=== PATIENT | male | born 1960 | race Caucasian/White ===

== ENCOUNTER 2019-10-31 09:26 | Outpatient (CLI) | payer MEDICAID, SELFPAY ==
--- NOTE | 2019-10-31 09:43 | ECG_ITS ---
NAME OF STUDY: LEXISCAN SESTAMIBI STRESS TEST INDICATION: Chest Pain, PROCEDURE: At the baseline, the EKG revealed normal sinus rhythm with a poor R wave progression. The baseline blood pressure was 140/106 mm Hg with a heart rate of 61 beats/min. Lexiscan was infused over a period of 20 seconds. A total of 0.4 milligrams of Lexiscan was infused. The stress phase was continued for a total of 5 minutes. Heart rate at the end of the stress phase was 78 with a blood pressure 99/78. The EKG at the peak infusion revealed no significant changes. Sestamibi was injected 20 seconds after the Lexiscan infusion. Blood pressure at the end of the recovery phase was 162/52 with a heart rate of 79 per minute. CONCLUSION: 1. No significant EKG changes with the LexiScan infusion 2. No LexiScan induced chest pain or cardiac arrhythmia 3. Normal blood pressure and heart rate response 4. Sestamibi/sestamibi perfusion scan pending; see separate report. Electronically Signed On 10-31-2019 19:07:32 ETHNOLOGY TEACHER by Juanita Marinelli M.D. [id number]
--- NOTE | 2019-10-31 09:44 | NMCV_ITS ---
NM john perf SPECT r/s* [id number] Martin Estes Age: 59 Gender: M : 1960 Exam Date: 10/31/2019 09:44 Ordering Phys: Juanita Marinelli MD ([email or web address]) Technologist: GRECIA Ayon Exam Location: [facility] Indications: Chest pain STRESS TEST Please see separate stress test report in [facility] for full findings IMAGE PROTOCOL Rest/Stress 1 Lexiscan Day Radiopharmaceutical Dose (mCi) Administration Site Administered by Rest: Tc-99m 10.6 IV GRECIA Ayon Sestamibi Stress:Tc-99m 31.6 IV GRECIA Ayon Sestamibi Rest: 31-Oct-2019 60 Discovery 630 Stress: 31-Oct-2019 45 Discovery 630 0.4mg Lexiscan. Images obtained in supine and prone position. SPECT RESULTS Technical Quality: Good Raw Data Analysis: Adequate Image Corrections: Had to correct for breathing motion on images Summed Stress Score: 0 Summed Rest Score: 2 Summed Difference Score: 0 PERFUSION FINDINGS Small area of slightly decreases uptake was noted in the inferolateral and apical lateral regions. No severe reversibility was noted in these regions. FUNCTIONAL RESULTS (calculated via Gated SPECT) Stress Image LV EF (%): 32 Stress EDV (mL):100 TID: 1.07 Stress ESV (mL):68 FUNCTIONAL FINDINGS: Normal wall motion is revealed diffuse hypokinesia of the left ventricle, more so of the apex IMPRESSIONS 1. Myocardial perfusion imaging revealing small area of persistent decreases uptake in the inferolateral and apical region, suggestive of mild scarring versus attenuation artifact 2. Diminished LV ejection fraction 32%. 3. LV wall motion analysis revealed diffuse hypokinesia left ventricle. 4. Dilated LV cavity with an end-systolic volume of 68 mL-mild dilatation No significant coronary ischemia, based on the above findings Dr Juanita Marinelli MD [facility] (Electronically Signed) Final Date: 31 October 2019 17:51 S
--- NOTE | 2019-10-31 10:21 | USCV_ITS ---
Martin Estes Age: 59 Gender: M : 1960 Exam Date: 10/31/2019 10:31 Ordering Phys: Juanita Marinelli MD ([email or web address]) Technologist: Ami Coburn [place] [facility] [place]: HYPOTENSION BP: 119 / 65 HR: 77 Rhythm: Sinus Technical Quality: Adequate MEASUREMENTS (Male / Female) Normal Values 2D ECHO LV Diastolic Diameter PLAX 3.0 cm 4.2 - 5.9 / 3.9 - 5.3 cm LV Systolic Diameter PLAX 1.6 cm LV Chamber Size 3.7 cm IVS Diastolic Thickness 1.5 cm 0.6 - 1.0 / 0.6 - 0.9 cm IVS Systolic Thickness 2.1 cm LVPW Diastolic Thickness 2.4 cm 0.6 - 1.0 / 0.6 - 0.9 cm LVPW Systolic Thickness 2.4 cm RV Chamber Size 2.6 cm LVOT Diameter 2.0 cm LV Ejection Fraction 2D Teich 78.7 % LV Ejection Fraction MOD 2C 51.1 % LV Ejection Fraction 2C AL 53.9 % LA Diameter 4.1 cm LA Width 3.0 cm LA Height 4.1 cm RA Width 3.9 cm RA Height 4.4 cm Aorta at Sinotubular Diameter 3.3 cm M-MODE LV Diastolic Diameter MM 6.4 cm 4.2 - 5.9 / 3.9 - 5.3 cm LV Systolic Diameter MM 4.7 cm LV Ejection Fraction MM Teich 50.3 % IVS Diastolic Thickness MM 1.0 cm 0.6 - 1.0 / 0.6 - 0.9 cm IVS Systolic Thickness MM 1.4 cm LVPW Diastolic Thickness MM 1.1 cm 0.6 - 1.0 / 0.6 - 0.9 cm LVPW Systolic Thickness MM 1.9 cm Aortic Annulus Diameter 3.1 cm LA Ao Ratio MM 1.3 MV E Point Septal Separation 0.8 cm DOPPLER AV Peak Velocity 94.0 cm/s LVOT Peak Velocity 83.0 cm/s AV Area Cont Eq vti 2.9 cm squared AV Area Cont Eq pk 2.9 cm squared MV Area PHT 2.2 cm squared Mitral E to A Ratio 0.8 MV E' Velocity 15.0 cm/s Mitral E to MV E' Ratio 4.3 Mitral E to LV E' Lateral Ratio 3.4 Mitral E to LV E' Septal Ratio 5.8 TR Peak Velocity 170.0 cm/s TR Peak Gradient 11.5 mmHg TV Peak E Velocity 64.0 cm/s Right Atrial Pressure 3.0 mmHg Pulmonary Artery Systolic Pressu 14.6 mmHg PV Peak Velocity 81.0 cm/s RV Acceleration Time 0.2 s RV Ejection Time 0.3 s RV AcT/ET 0.4 FINDINGS Left Ventricle Normal left ventricular size and systolic function, EF 55 %. No gross wall motion normalities. Some features of left ventricular diastolic dysfunction of grade 1 Right Ventricle The right ventricle is normal in size and function. Right Atrium The right atrium is normal in size. Left Atrium The left atrium is normal in size. Mitral Valve Trace mitral valve regurgitation. Aortic Valve Trace aortic valve regurgitation. Thickened aortic valve. Tricuspid Valve No gross abnormalities noted Pulmonic Valve No gross abnormalities noted Pericardium Normal pericardium without effusion. Aorta Normal ascending aorta dimension. CONCLUSIONS Normal left ventricular size and systolic function, EF 55 %. No gross wall motion normalities. Type I diastolic dysfunction. Trace aortic valve regurgitation. Thickened aortic valve. Trace mitral valve regurgitation. There is no pericardial effusion. There are no intracardiac masses. No previous study is available for comparison. Dr Juanita Marinelli MD [facility] (Electronically Signed) Final Date: 31 October 2019 18:12 S
[2019-10-31 10:50] VITALS: BMI 29.0
[2019-10-31] MEDS: regadenoson 0.4 Mg/5 ml Syringe IVP (11:47)
[2019-10-31 12:04] VITALS: BP 160/52; PULSE 85
== END 2019-10-31 09:27 | disposition home or self-care (01) ==
LOC: RAD 09:28
PROVIDERS: Family Provider Family Medicine; PCP Family Medicine; Visit Provider Internal Medicine Cardiovascular Disease
DX: I08.0 Rheumatic disorders of both mitral and aortic valves (principal); I95.9 Hypotension, unspecified; R07.89 Other chest pain
CPT/HCPCS: 78452; 93017; 93306; A9500; J2785

== ENCOUNTER → 2019-12-12 07:49 | Outpatient (BNVA) | payer MEDICAID, SELFPAY | PROVIDERS: Family Provider Family Medicine; PCP Family Medicine; Visit Provider Specialist | DX: G40.409 Other generalized epilepsy and epileptic syndromes, not intractable, without status epilepticus (principal); Z96.89 Presence of other specified functional implants | CPT/HCPCS: 95970; 99213 ==

== ENCOUNTER 2019-12-13 14:05 | Outpatient (CLI) | payer MEDICAID, SELFPAY ==
--- NOTE | 2019-12-13 14:09 | XR_ITS ---
WS: [id number] Chest 2 views, 12/13/2019 Clinical Data: VNS battery chage Comparison: Portable chest, 02/01/2019. Findings: No nodules, masses or effusions are seen. The heart is normal. The pulmonary vascularity is not increased. No pneumonia or pneumothorax is seen. The vagal nerve stimulator is overlying the lef t lateral chest. XR/XR chest 2V* [id number] Impression: Negative chest. .
== END 2019-12-13 14:06 | disposition home or self-care (01) ==
LOC: RAD 14:08
PROVIDERS: Family Provider Family Medicine; PCP Family Medicine; Visit Provider Specialist
DX: Z96.89 Presence of other specified functional implants (principal)
CPT/HCPCS: 71046

== ENCOUNTER 2019-12-20 12:45 | Outpatient (CLI) | payer MEDICAID, SELFPAY ==
--- NOTE | 2019-12-20 13:00 | XR_ITS ---
WS: [id number] Cervical spine, 3 views, 12/20/2019 Clinical Data: VNS components Comparison: Soft tissue views of the neck, 12/26/2014. Findings: The vagal nerve stimulator has not changed in position. The generator is overlying the left upper chest. The distal portion of the generator is on the left side of the neck adjacent to the C6 and C7 vertebral bodies. Is minimal disc space narrowing at C5-C6 with an anterior inferior C5 spur. The cervical spine and the lung apices are otherwise unremarkable. XR/XR cervical spine 3V* [id number] Impression: 1. Satisfactory position of vagal nerve stimulator. 2. Minimal degenerative disc disease at C5-C6.
== END 2019-12-20 12:46 | disposition home or self-care (01) ==
LOC: RADWPI 12:47
PROVIDERS: Family Provider Family Medicine; PCP Family Medicine; Visit Provider Licensed Practical Nurse
DX: Z96.82 Presence of neurostimulator (principal); M47.892 Other spondylosis, cervical region
CPT/HCPCS: 72040

== ENCOUNTER → 2020-02-06 15:34 | Outpatient (BNVA) | payer MEDICAID, SELFPAY | PROVIDERS: Family Provider Family Medicine; PCP Family Medicine; Visit Provider Family Medicine | DX: E78.5 Hyperlipidemia, unspecified (principal); Z12.5 Encounter for screening for malignant neoplasm of prostate; K21.9 Gastro-esophageal reflux disease without esophagitis | CPT/HCPCS: 80053; 80061; 85025; G0103 ==

== ENCOUNTER 2020-02-07 10:37 | Day surgery (SDC) | payer MEDICAID, SELFPAY ==
[2020-02-06 16:59] VITALS: BMI 28.2
[2020-02-07 10:50] VITALS: BP 111/82; PULSE 72; RESP 18; TEMP 36.6; O2SAT 95
--- NOTE | 2020-02-07 11:10 | P.ANESASSM_ITS ---
Pre-Anesthetic Assessment Pre-Anesthetic Assessment: Height/Weight: Height 1.75 m Weight 86.636 kg Temp Pulse Resp BP Pulse Ox 97.9 F 72 18 111/82 95 02/07/20 10:50 02/07/20 10:50 02/07/20 10:50 02/07/20 10:50 02/07/20 10:50 Preop Diagnosis: Vagal nerve stimulator end of service Proposed Procedure: Operation Date: 02/07/20 11:55 Proposed Procedures p Vagal Nerve Revision 97369 Z45.42(Not Applicable) - Pal Faria MD Was Beta Gamaliel taken within 24 hours: N/A Last intake: Intake Last Liquid Date 02/07/20 Last Liquid Time 06:45 Last Solid Date 02/06/20 Last Solid Time 17:30 Social: Social History: No alcohol and No tobacco Exam: Pre-Anes Outpt Exam: alert, oriented x 3, clear to auscultation bilaterally and regular rate & rhythm Airway: Submandibular: WNL Cervical ROM: WNL MP: 2 Dentition: False History/ROS: No significant history except as noted Pulmonary: Pulmonary: None reported CV/HEM: CV/HEM: Angina (Stable) : : Chronic renal Insufficiency GI: GI: GERD Metabolic: Metabolic: Hyperlipidemia Neuropsych: Neuropsych: Seizure Anesthetic Plan: ASA status: 3 Anesthesia: Anesthesia Evaluation, General a nd MAC Risk of > 500 ml blood loss (7ml/kg in children): No PFSH Anesthesia PFSH: Social History Smoking and tobacco status: never smoked Alcohol intake: never Household members: friend(s) Marital status: Single Current occupational status: unemployed and disabled History of recent travel: No Data Anesthesia Cardiac Studies: No Data to Display
--- NOTE | 2020-02-07 11:22 | P.HPUD_ITS ---
Surgery/Procedure H&P Update DATE OF PROCEDURE: February 07, 2020 DATE H&P PERFORMED: 02/06/20 H&P UPDATE INFORMATION: I have reviewed H&P completed within last 30 days and H&P is in [facility] [place] EMR on date indicated PREOP DIAGNOSIS: Vagal nerve stimulator end of service PRIMARY INDICATION FOR PROCEDURE: Medically refractory seizures PLANNED PROCEDURE: Operation Date: 02/07/20 11:55 Proposed Procedures Replacement of subcutaneous Vagal Nerve stimulation pulse generator 91667 Z45.42(Not Applicable) - Pal Faria MD
[2020-02-07] MEDS: vancomycin 1,000 MG in sodium chloride 0.9% 250 ML 250 MG IV (11:31)
[2020-02-07] MEDS: sodium chloride 0.9% 1,000 ML 30 ML IV (11:31)
--- NOTE | 2020-02-07 11:43 | PM.OP2 ---
 Brief Operative Note: Date of procedure: 02/07/20 Pre-op diagnosis: Vagal nerve stimulator end of service Post-op diagnosis: same Procedure Done: Replacement of subcutaneous programmable pulse generator Surgeon: Pal Faria Estimated blood loss (mL): 5 Complications: None Post-op Plan: Home per Ambulatory Surgery protocol. Condition: stable Disposition: same day Coding Level of Care Code Acute Food Service Hotel Runner for Garrett Liang
[2020-02-07 12:58] VITALS: BP 111/62; PULSE 75; RESP 18; TEMP 36.2; O2SAT 97
[2020-02-07 13:13] VITALS: BP 136/70; PULSE 80; RESP 18; TEMP 36.6; O2SAT 96
--- NOTE | 2020-02-07 14:40 | PM.OP ---
Operative Report Date of procedure: February 07, 2020 Pre-op Diagnosis: Vagal nerve stimulator end of service Post-op diagnosis: same Procedure Done: Replacement of subcutaneous programmable pulse generator, with connection to vagal nerve stimulation electrode array. Implants: VNS Therapy Sentiva Model #1000 pulse generator. Specimens removed/disposition: [employer]O [employer] HC Model #105 pulse generator. Pathology: Explanted pulse generator for gross exam only. Surgeon: Pal Faria Anesthesia: MAC Estimated blood loss (mL): 5 IV fluids (mL): 200 Complications: None Condition: stable Disposition: other (Same Day Surgery) Brief History: The patient is a 59-year-old male with medically refractory seizures, who underwent vagal nerve stimulator implantation in 2005. He noted improvement in seizure control with addition of VNS therapy. He underwent a pulse generator replacement in 2014. His managing neurologist recently requested replacement of the current device, which was nearing battery end of service. After review of the diagnostic and treatment options with the risks/potential benefits/rationale for each, the patient opted for replacement of the subcutaneous pulse generator and continuation of VNS therapy. Procedure: After routine preoperative evaluation and informed consent were obtained, the patient was taken to the Operating Room and positioned supine on the operating table. He was monitored and maintained under intravenous sedation by Anesthesia personnel. The left anterior chest was prepared with Betadine scrub and DuraPrep application. Sterile towels/drapes were applied, and Ioban surgical barrier was placed. The prior left infraclavicular surgical scar was infiltrated with 1% Xylocaine with Epinephrine. The chest incision was made with a sharp knife and carried down into the subcutaneous tissues. Care was taken to avoid injury to the underlying implants. The anchor suture was released, and the pulse generator was delivered from the subcutaneous space. The setscrew was released, and the pin was delivered from the port on the pulse generator. The explanted device was sent to pathology for gross evaluation. The device for implant was brought to the surgical field, and the connector pin on the lead tail was advanced into the port on the pulse generator. The set screw was secured. Device interrogation was performed. The lead test was successful, showing no faults and acceptable lead impedance. The patient showed no bradycardia during lead test/device interrogation, and heart rate sensing by the newly implanted device was verified. The subcutaneous pocket was copiously irrigated with sterile saline. The pulse generator was placed within the subcutaneous pocket and anchored with a single 2-0 Silk suture. Excess lead was coiled adjacent to the device and was verified to be without kink or strain. The incision site was copiously irrigated with antibiotic irrigation prior to closure. The deep dermis was closed with 2-0 Vicryl Plus in a simple interrupted fashion. Final skin closures were performed with running subcuticular 3-0 Vicryl Plus. Steri-Strips were applied, and a sterile dressing was placed. The implanted device was programmed to settings obtained from the explanted device. The lead test demonstrated acceptable impedance. The patient was transferred onto the Recovery Room cart in the supine position. He was transported to the ambulatory surgery area without incident. He tolerated the procedure well. All sponge, needle and instrument counts were correct at the completion of the procedure.
== END 2020-02-07 13:30 | disposition home or self-care (01) ==
PROVIDERS: Family Provider Family Medicine; PCP Family Medicine; Visit Provider Specialist
PROC: (CPT 64569; principal; 2020-02-07 11:55)
DX: Z45.42 Encounter for adjustment and management of neurostimulator (principal); K21.9 Gastro-esophageal reflux disease without esophagitis; E78.5 Hyperlipidemia, unspecified; Z82.49 Family history of ischemic heart disease and other diseases of the circulatory system; N18.9 Chronic kidney disease, unspecified
CPT/HCPCS: 64569; 12345; 88300; 96365; C1767; J0690; J2001; J2704; J3010; J3370; J3490; J7030; J7050

== ENCOUNTER 2020-03-04 09:16 | Outpatient (CLI) | payer MEDICAID, SELFPAY ==
--- NOTE | 2020-03-04 09:15 | XR_ITS ---
WS: [id number] XR KUB [id number] REASON FOR EXAM: n20.1 FINDINGS: This study shows multiple calcified densities in the left kidney. There is marked fecal stasis also seen throughout the colon. The urinary bladder is distended. XR/XR KUB [id number] IMPRESSION: Multiple renal calculus on the left Fecal stasis Mildly distended urinary bladder.
== END 2020-03-04 09:17 | disposition home or self-care (01) ==
PROVIDERS: Family Provider Family Medicine; PCP Family Medicine; Visit Provider Urology
DX: N20.1 Calculus of ureter (principal); N20.0 Calculus of kidney; K59.00 Constipation, unspecified
CPT/HCPCS: 74018; 81001

== ENCOUNTER 2020-03-24 07:05 | Outpatient (CLI) | payer MEDICAID, SELFPAY ==
--- NOTE | 2020-03-24 07:15 | XR_ITS ---
WS: [id number] ABDOMEN: SUPINE FILM HISTORY: RENAL STONE COMPARISON: 03/04/2020 Moderate fecal retention. Degenerative changes at L5-S1. Right kidney: No renal or ureteral stone identified. Left kidney: Numerous stones project over the LEFT kidney with the largest measuring 7.1 mm. Stone bu rden not significantly changed. XR/XR KUB 26874 IMPRESSION: LEFT nephrolithiasis with the largest measuring 7.1 mm.
== END 2020-03-24 07:06 | disposition home or self-care (01) ==
LOC: RAD 07:09
PROVIDERS: PCP Family Medicine; Visit Provider Urology
DX: N20.0 Calculus of kidney (principal)
CPT/HCPCS: 74018; 81001

== ENCOUNTER → 2020-05-02 15:52 | Outpatient (BNVA) | payer MEDICAID, SELFPAY | PROVIDERS: PCP Family Medicine; Visit Provider Nurse Practitioner Family | DX: R30.0 Dysuria (principal) | CPT/HCPCS: 81000; 85025 ==

== ENCOUNTER → 2020-05-21 12:30 | Outpatient (BNVA) | payer MEDICAID, SELFPAY | PROVIDERS: PCP Family Medicine; Visit Provider Family Medicine | DX: R30.0 Dysuria (principal); F41.9 Anxiety disorder, unspecified; Z68.27 Body mass index [BMI] 27.0-27.9, adult; Z71.89 Other specified counseling | CPT/HCPCS: 81000 ==

== ENCOUNTER → 2020-06-10 07:45 | Outpatient (BNVA) | payer MEDICAID, SELFPAY | PROVIDERS: PCP Family Medicine; Visit Provider Specialist | DX: G40.909 Epilepsy, unspecified, not intractable, without status epilepticus (principal); R26.0 Ataxic gait; Z96.89 Presence of other specified functional implants | CPT/HCPCS: 95970; 99213 ==

== ENCOUNTER 2020-06-16 12:46 | Outpatient (CLI) | payer MEDICAID, SELFPAY ==
--- NOTE | 2020-06-16 13:00 | CT_ITS ---
WS: [id number] CT HEAD TECHNIQUE: Noncontrast CT of the head obtained from the skullbase to the vertex. CLINICAL INFORMATION: SEE DX COMPARISON: None. DLP: 925.[address] scans at [facility] use at least one of these dose optimization techniques: automat ed exposure control; mA and/or kV adjustment per patient size (includes targeted exams where dose is matched to clinical indication); or iterative reconstruction. FINDINGS: No evidence of intracranial hemorrhage or mass effect. Ventricular system and basal cisterns are velasco nt. Mild small vessel changes with moderate parenchymal volume loss. No extra-axial fluid collections . No evidence of mass or mass effect. Normal carranza-white differentiation. Mastoid air cells well aerated. Mild mucosal thickening in the ethmoid air cells. CT/CT head wo con* [id number] IMPRESSION: 1. No evidence of intracranial hemorrhage or mass effect. 2. Mild small vessel changes. Moderate parenchymal volume loss. 3. No acute intracranial findings.
== END 2020-06-16 12:47 | disposition home or self-care (01) ==
PROVIDERS: PCP Family Medicine; Visit Provider Specialist
DX: G40.909 Epilepsy, unspecified, not intractable, without status epilepticus (principal)
CPT/HCPCS: 70450

== ENCOUNTER → 2020-09-03 11:18 | Outpatient (BNVA) | payer MEDICAID, SELFPAY | PROVIDERS: PCP Family Medicine; Visit Provider Family Medicine | DX: E78.5 Hyperlipidemia, unspecified (principal) | CPT/HCPCS: 80053; 80061; 85025 ==

== ENCOUNTER 2020-09-23 08:40 | Outpatient (CLI) | payer MEDICAID, SELFPAY ==
--- NOTE | 2020-09-23 08:45 | XRR_ITS ---
PROCEDURE INFORMATION: Exam: XR Abdomen, 1 View Exam date and time: 09/23/2020 8:56 AM Age: 60 years old Clinical indication: Condition or disease; Kidney or ureter condition; Calculus (stone) in kidney; Additional info: Renal stone TECHNIQUE: Imaging protocol: XR of the abdomen. Views: Frontal supine view of the abdomen. 1 View. COMPARISON: CR XR KUB [id number] 03/24/2020 7:17 AM FINDINGS: Gastrointestinal tract: bowel gas pattern is nonspecific. Air filled large bowel including distal rectal gas. Large amount of stool throughout the large bowel. Organs: Calcifications left kidney largest of approximately 10 mm and 12 mm. Bones/joints: Unremarkable. XR/XR KUB [id number] IMPRESSION: 1. Bowel gas pattern is nonspecific. Air filled large bowel including distal rectal gas. 2. Large amount of stool throughout the large bowel. 3. Calcifications left kidney largest of approximately 10 mm and 12 mm. .
== END 2020-09-23 08:41 | disposition home or self-care (01) ==
PROVIDERS: PCP Family Medicine; Visit Provider Urology
DX: N20.0 Calculus of kidney (principal); R30.0 Dysuria
CPT/HCPCS: 74018; 81003

== ENCOUNTER 2020-11-05 12:04 | Outpatient (CLI) | payer MEDICAID, SELFPAY ==
--- NOTE | 2020-11-05 12:15 | XR_ITS ---
WS: [id number] KUB, AP view, 11/05/2020 Clinical Data: KIDNEY STONE Comparison: KUB, 09/23/2020 Findings: No abnormal intraabdominal masses are seen. There is no dilatated small bowel or evidence of obstruct ion. There are numerous calcifications overlying the left kidney. The largest calcification measures 1.2 c m. Bowel gas and fecal material obscure detail over both kidneys. XR/XR KUB [id number] Impression: Numerous left renal calcifications unchanged.
== END 2020-11-05 12:05 | disposition home or self-care (01) ==
LOC: RAD 12:05
PROVIDERS: PCP Family Medicine; Visit Provider Urology
DX: N20.0 Calculus of kidney (principal)
CPT/HCPCS: 74018; 87635

== ENCOUNTER 2020-11-10 11:43 | Day surgery (SDC) | payer MEDICAID, SELFPAY ==
[2020-11-07 16:20] VITALS: BMI 28.0
[2020-11-10] VITALS (7 sets, daily range): BP systolic 100–112; BP diastolic 62–75; PULSE 53–81; RESP 13–20; TEMP 36.1–36.4; O2SAT 95–100
--- NOTE | 2020-11-10 11:47 | XRR_ITS ---
PROCEDURE INFORMATION: Exam: XR Abdomen, 1 View Exam date and time: 11/10/2020 12:06 PM Age: 60 years old Clinical indication: Screening exam; Other: Preop eswl TECHNIQUE: Imaging protocol: XR of the abdomen. Views: Frontal supine view of the abdomen. 1 View. COMPARISON: CR XR KUB [id number] 11/05/2020 12:35 PM FINDINGS: Gastrointestinal tract: Large amount of stool in the colon. Organs: There are multiple left renal calculi, at least 6. These are partially obscured by enteric contents in the colon. The largest calculus measures approximately 14 mm in size not accounting for magnification. Bones/joints: Multilevel degenerative changes in lumbar spine. XR/XR KUB [id number] IMPRESSION: Left nephrolithiasis.
[2020-11-10] MEDS: sodium chloride 0.9% 1,000 ML 30 ML IV (12:47)
--- NOTE | 2020-11-10 13:19 | ANES.PREANE2 ---
Pre-Anesthetic Assessment Pre-Anesthetic Assessment: Height/Weight: Height 1.75 m Weight 86.183 kg Temp Pulse Resp BP Pulse Ox 97.6 F 64 18 100/64 96 11/10/20 12:36 11/10/20 12:36 11/10/20 12:36 11/10/20 12:36 11/10/20 12:36 Preop Diagnosis: Multiple left renal calculi Proposed Procedure: Operation Date: 11/10/20 13:10 Proposed Procedures p Cystoscopy 04511 09444 N20.0(Left) - MD chioma Snow Ureteral Stent Placement(Left) - Antione Torres MD s ESWL(Not Applicable) - Antione Torres MD Was Beta Gamaliel taken within 24 hours: N/A Last intake: Intake Last Liquid Date 11/09/20 Last Liquid Time 07:00 Last Solid Date 11/09/20 Last Solid Time 07:00 Social: Social History: No alcohol and No tobacco Exam: Pre-Anes Outpt Exam: alert, oriented x 3, clear to auscultation bilaterally and regular rate & rhythm Airway: Submandibular: WNL Cervical ROM: WNL MP: 2 Dentition: False : : Chronic renal Insufficiency GI: GI: GERD Neuropsych: Neuropsych: Anxiety, Bipolar and Seizure (VNS) Anesthetic Plan: ASA status: 3 Anesthesia: General Risk of > 500 ml blood loss (7ml/kg in children): No Meds/Allergies Current Medications: Current Medications Generic Name Dose Route Start Last Admin Trade Name Freq PRN Reason Stop Dose Admin Sodium Chloride 1,000 mls @ 30 ml s/hr 11/10/20 12:00 11/10/20 12:47 Sodium Chloride 0.9% IV 11/11/20 11:59 30 mls/hr .Q24H SUNNY Administration PFSH Anesthesia PFSH: Medical History Anxiety Bipolar 1 disorder Calcium renal calculus Chronic kidney disease Depression Dyslipidemia Epilepsy GERD (gastroesophageal reflux disease) Hematochezia Hypernatremia 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 Fadi Faria; Replacement of subcutaneous programmable pulse generator, with connection to vagal nerve stimulator electrode array. 05/26/2006 Dr. Fadi Faria. Implantation of vagal nerve stimulating electrode. Implantation of subcutaneous pulse generator for connection to cranial nerve stimulating electrode array. Family History Other CAD (coronary artery disease) Social History Smoking and tobacco status: never smoked Alcohol intake: never Household members: friend(s) Marital status: Single Current occupational status: unemployed and disabled History of recent travel: No Data Anesthesia Cardiac Studies: Cardiac Event Monitor 09/30/20
--- NOTE | 2020-11-10 13:35 | P.OP_ITS ---
Operative Report Date of procedure: November 10, 2020 Pre-op Diagnosis: Multiple left renal calculi Post-op diagnosis: same Procedure Done: 1. Cystoscopy with left ureteral stent placement 2. Extracorporeal shockwave lithotripsy to left renal calculi (multiple) Implants: Left ureteral stent. 7 Danish by 28 cm double-pigtail without string Pathology: none sent Surgeon: Brian Orchid Transplanter: Lithotripsy Fashion Photographer: Merari Anesthesia: General Estimated blood loss: None Urine output: Not measured Complications: None Condition: stable Disposition: PACU Brief History: Martin is a very pleasant cognitively impaired 60-year-old white male with history of recurrent urolithiasis who has had increasing stone burden in his left kidney. He has multiple stones throughout the kidney. Has required previous intervention for symptomatic stones. Ultimately it was elected to proceed to try to make him stone free. Plan was to place a stent, treat as many of the stones as possible, follow-up in several weeks and possibly schedule repeat treatment if necessary. Procedure: After routine preoperative evaluation examination and obtaining of informed consent he was taken to the operating suite on 11/10/2020 where general anesthesia was administered without difficulty after appropriate timeout was performed, SCDs confirmed to be functioning, preoperative antibiotics administered, beta- denis protocol confirmed. Prepped and draped in usual sterile fashion in dorsolithotomy position paying careful attention to avoiding pressure points. 21 Danish cystoscope with 30 degree lens was introduced into the urethra meatus and advanced into the bladder under videoscopy. Bladder was systematically examined with no gross abnormality identified. Flexible tip guidewire was then easily advanced up the left ureter into the kidney and a 7 Danish by 28 cm double-pigtail stent without string was advanced over the guidewire through the cystoscope into appropriate position as confirmed via fluoroscopy and cystoscopy. Bladder was drained. He was then positioned on the Dornier unit in supine position such that the stone was located at the focal point utilizing biplanar fluoroscopy. Shockwave therapy was initiated to the stones that could be most easily identified. Therapy was started at a intensity of 1 and advanced an intensity of 4 with a 3- minute pause after approximately 300 shocks. Rate was initiated at 70. That was maintained throughout. The large mid pole stone was treated first with good change. The focal point was then moved to the lower pole where a couple stones were treated. With the final 800 shocks the larger upper pole stone was also treated. All stones demonstrated some change. He tolerated procedure well without complications and was awakened in the operating room and returned recovery in stable condition. PLANS: 1. Discharge from outpatient surgery 2. Follow-up in 2 weeks with KUB.
--- NOTE | 2020-11-10 13:35 | W.PM.OPSUD ---
Surgery/Procedure H&P Update DATE OF PROCEDURE: November 10, 2020 DATE H&P PERFORMED: 11/05/20 H&P UPDATE INFORMATION: I have reviewed H&P completed within last 30 days, I have examined patient prior to procedure, No changes to prior documentation and [place] [facility] [place] date indicated PREOP DIAGNOSIS: Multiple left renal calculi PLANNED PROCEDURE: Operation Date: 11/10/20 13:10 Proposed Procedures p Cystoscopy 09983 15106 N20.0(Left) - Antione Torres MD s Ureteral Stent Placement(Left) - Antione Torres MD s ESWL(Not Applicable) - Antione Torres MD
[2020-11-10] MEDS: levofloxacin-dextrose 5 % 500 MG/100 ML PREMIX 100 MG IV (13:49)
--- NOTE | 2020-11-10 16:24 | ANE.PACU2 ---
Inpatient post-anesthesia follow up: Airway intact: Yes Vital signs: Temperature 97.0 F Pulse Rate 81 Respiratory Rate 18 Blood Pressure 112/62 Pulse Oximetry 98 Oxygen Delivery Me thod Room Air Oxygen Flow Rate 6 Fraction of Inspir ed Oxygen Hydration adequate: Yes Nausea and vomiting: No Pain level: 1 Mental status: Baseline
== END 2020-11-10 15:58 | disposition home or self-care (01) ==
PROVIDERS: PCP Family Medicine; Visit Provider Urology
PROC: 0TJB8ZZ Inspection of Bladder, Via Natural or Artificial Opening Endoscopic (ICD-10-PCS; CPT 52000; principal; 2020-11-10 13:10)
PROC: (CPT 50605; 2020-11-10 13:10)
PROC: (CPT 50590; 2020-11-10 13:10)
DX: N20.0 Calculus of kidney (principal); N40.1 Benign prostatic hyperplasia with lower urinary tract symptoms; N13.8 Other obstructive and reflux uropathy; F41.9 Anxiety disorder, unspecified; E78.5 Hyperlipidemia, unspecified; F31.9 Bipolar disorder, unspecified; N18.9 Chronic kidney disease, unspecified; Z82.49 Family history of ischemic heart disease and other diseases of the circulatory system
CPT/HCPCS: 50590; 52332; 12345; 74018; C2625; J1956; J2704; J3010; J3490; J7030

== ENCOUNTER 2020-11-26 08:10 | Outpatient (CLI) | payer MEDICAID, SELFPAY ==
--- NOTE | 2020-11-26 08:00 | XR_ITS ---
WS: [id number] Exam: XR KUB [id number] Date/Time of Exam: 11/26/2020 8:00 AM Reason For Exam: stones Comparison 11/10/2020. A left pigtail ureteral stent has been placed and appears to be in appropriate location. There are se veral calcifications superimposing the lower pole the left kidney that apparently represents the nellie ent's known renal calculi. There is also a 3 mm calcification seen along the course of the stent at t he upper left margin of the urinary bladder. This could be a urinary tract stone or other calcificati on in the pelvis. Large amount of stool noted throughout the colon. No bowel obstruction or free air. Organ margins are unremarkable as visualized. XR/XR KUB [id number] IMPRESSION: 1. Left-sided ureteral pigtail stent in place appearing to be in appropriate lo cation. 2. Numerous calcifications superimpose the lower pole the left kidney probably representing known renal calculi. 3. 3 mm calcification seen along the course of the left ureteral stent near the superior left margin of the urinary bladder. This could be a urinary tract sto ne or other pelvic calcification.
== END 2020-11-26 08:11 | disposition home or self-care (01) ==
LOC: RAD 08:12
PROVIDERS: PCP Family Medicine; Visit Provider Urology
DX: N20.0 Calculus of kidney (principal); Z96.0 Presence of urogenital implants
CPT/HCPCS: 74018; 81003

== ENCOUNTER → 2020-12-03 08:27 | Outpatient (BNVA) | payer MEDICAID, SELFPAY | PROVIDERS: PCP Family Medicine; Visit Provider Specialist | DX: G40.909 Epilepsy, unspecified, not intractable, without status epilepticus (principal); R26.0 Ataxic gait; F31.9 Bipolar disorder, unspecified; Z96.89 Presence of other specified functional implants | CPT/HCPCS: 95970; 99214 ==

== ENCOUNTER 2020-12-05 09:39 | Outpatient (CLI) | payer MEDICAID, SELFPAY ==
--- NOTE | 2020-12-05 09:45 | XR_ITS ---
WS: [id number] KUB, AP view, 12/05/2020 Clinical Data: RENAL STONE Comparison: KUB, 11/26/2020. Findings: No abnormal intraabdominal masses are seen. There are calcifications in the inferior pole left kidney which have not changed. A left ureteral stent is in good position. There is no dilatated small bowel or evidence of obstruction. The calcification at the left UVJ adjacent to the distal left ureteral catheter is not seen. There is a large amount of fecal material throughout the colon. XR/XR KUB [id number] Impression: 1. No change in left ureteral stent. 2. Calcifications overlying inferior pole of left kidney. 3. Possible distal left ureteral calculus no longer seen.
== END 2020-12-05 09:40 | disposition home or self-care (01) ==
LOC: RAD 09:42
PROVIDERS: PCP Family Medicine; Visit Provider Urology
DX: N20.0 Calculus of kidney (principal); Z96.0 Presence of urogenital implants
CPT/HCPCS: 74018; 87635

== ENCOUNTER 2020-12-08 14:54 | Day surgery (SDC) | payer MEDICAID, SELFPAY ==
[2020-12-05 18:08] VITALS: BMI 28.6
[2020-12-08] VITALS (7 sets, daily range): BP systolic 103–130; BP diastolic 77–88; PULSE 52–68; RESP 12–18; TEMP 36.3–36.8; O2SAT 94–100
--- NOTE | 2020-12-08 15:07 | XRR_ITS ---
PROCEDURE INFORMATION: Exam: XR Abdomen Exam date and time: 12/08/2020 3:07 PM Age: 60 years old Clinical indication: Screening examination. Preoperative for extracorporeal shock wave lithotripsy. TECHNIQUE: Imaging protocol: XR of the abdomen. Views: Frontal supine view of the abdomen. 1 View. COMPARISON: CR XR KUB [id number] 11/10/2020 11:54 AM FINDINGS: A left ureteral stent is in place. Stones are noted in the mid and lower pole of the left kidney. Nonobstructive bowel gas pattern. No gross free air. XR/XR KUB [id number] IMPRESSION: 1. A left ureteral stent is in place. 2. Stones are noted in the mid and lower pole of the left kidney.
[2020-12-08] MEDS: sodium chloride 0.9% 1,000 ML 30 ML IV (16:20)
--- NOTE | 2020-12-08 16:58 | ANES.PREANE2 ---
Pre-Anesthetic Assessment Pre-Anesthetic Assessment: Height/Weight: Height 1.7 m Weight 83.007 kg Temp Pulse Resp BP Pulse Ox 98.2 F 68 18 120/82 95 12/08/20 15:39 12/08/20 15:39 12/08/20 15:39 12/08/20 15:39 12/08/20 15:39 Preop Diagnosis: Residual left renal calculi Proposed Procedure: Operation Date: 12/08/20 16:30 Proposed Procedures p Cystoscopy 97815 39201 N20.0(Not Applicable) - Antione Torres MD s Ureteral Stent Removal(Not Applicable) - Antione Torres MD s ESWL(Not Applicable) - Antione Torres MD Was Beta Gamaliel taken within 24 hours: N/A Last intake: Intake Last Liquid Date 12/08/20 Last Liquid Time 08:00 Last Solid Date 12/06/20 Last Solid Time 17:00 Social: Social History: No alcohol and No tobacco Exam: Pre-Anes Outpt Exam: alert, oriented x 3, clear to auscultation bilaterally and regular rate & rhythm Airway: Submandibular: WNL Cervical ROM: WNL MP: 2 Dentition: False CV/HEM: CV/HEM: Angina (Stable) and CAD : : Chronic renal Insufficiency GI: GI: GERD Neuropsych: Neuropsych: Anxiety, Bipolar and Seizure (VNS) Anesthetic Plan: ASA status: 3 Anesthesia: General Risk of > 500 ml blood loss (7ml/kg in children): No Meds/Allergies Current Medications: Current Medications Generic Name Dose Route Start Last Admin Trade Name Freq PRN Reason Stop Dose Admin Sodium Chloride 1,000 mls @ 30 ml s/hr 12/08/20 15:15 12/08/20 16:20 Sodium Chloride 0.9% IV 12/09/20 15:14 30 mls/hr .Q24H SUNNY Administration PFSH Anesthesia PFSH: Medical History Anxiety Bipolar 1 disorder Calcium renal calculus Chronic kidney disease Depression Dyslipidemia Epilepsy GERD (gastroesophageal reflux disease) Hematochezia Hypernatremia 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 Fadi Faria; Replacement of subcutaneous programmable pulse generator, with connection to vagal nerve stimulator electrode array. 05/26/2006 Dr. Fadi Faria. Implantation of vagal nerve stimulating electrode. Implantation of subcutaneous pulse generator for connection to cranial nerve stimulating electrode array. Family History Other CAD (coronary artery disease) Social History Smoking and tobacco status: never smoked Alcohol intake: never Household members: friend(s) Marital status: Single Current occupational status: unemployed and disabled History of recent travel: No Data Anesthesia Cardiac Studies: Cardiac Event Monitor 09/30/20
--- NOTE | 2020-12-08 17:49 | P.HPUD_ITS ---
Surgery/Procedure H&P Update DATE OF PROCEDURE: December 08, 2020 DATE H&P PERFORMED: 12/05/20 H&P UPDATE INFORMATION: I have reviewed H&P completed within last 30 days, I have examined patient prior to procedure, No changes to prior documentation and H&P is in [facility] EMR on date indicated PREOP DIAGNOSIS: Residual left renal calculi PLANNED PROCEDURE: Operation Date: 12/08/20 16:30 Proposed Procedures p Cystoscopy 37037 25771 N20.0(Not Applicable) - Antione Torres MD s Ureteral Stent Removal(Not Applicable) - Antione Torres MD s ESWL(Not Applicable) - Antione Torres MD
--- NOTE | 2020-12-08 17:50 | P.OP_ITS ---
Operative Report Date of procedure: December 08, 2020 Pre-op Diagnosis: Residual left renal calculi Post-op diagnosis: same Procedure Done: 1. Extracorporeal shockwave lithotripsy, residual left renal calculus fragment 2. Cystoscopy removal of left ureteral stent Specimens removed/disposition: None Pathology: none sent Surgeon: Brian English Professor: Merari Anesthesia: General Estimated blood loss: None Urine output: Not measured Complications: None Findings: 3 distinct areas of stone fragments were treated all with excellent results. 2000 shocks total. Condition: stable Disposition: PACU Brief History: Martin is a very pleasant mentally challenged 60-year-old white male with a history of recurrent stone disease who recently underwent ESWL for increasing size of left renal calculi. There was dramatic change in all the stones treated but there was a few stone fragments that were felt to be too large to spontaneously pass remaining. He is back now for completion ESWL. We also reviewed taking the stent out if the results look good at real-time fluoroscopy. Procedure: After routine preoperative evaluation examination and obtaining of informed consent he was taken to the operating suite on 12/08/2020 where general anesthesia was administered without difficulty after appropriate timeout was performed, SCDs confirmed to be functioning, preoperative antibiotics administered, beta- denis protocol confirmed. Positioned on the Dornier unit such that the lower pole cluster of stones was at the focal point. Shockwave was initiated at a rate of 70 and an intensity of 1 with advancement to an intensity of 4. A several minute pause was conducted after about 300 shocks. The cluster of stones in the lower pole showed early change. After the pause focus was shifted to the midpole stone and it is well showed significant change. Focus was then redirected to the lower pole until no stone fragments could be seen. There appeared to be a small fragment in the area of the initial stone in the upper pole and this fragment was also treated with about 500 shocks at the completion of the procedure. After 2000 shocks no more stone fragments could be seen and the procedure was completed. He tolerated procedure well without complications and was awakened in the operating room and returned to the care of room in stable condition PLANS: 1. Follow-up KUB in about 3 months
[2020-12-08] MEDS: levofloxacin-dextrose 5 % 500 MG/100 ML PREMIX 100 MG IV (17:55)
--- NOTE | 2020-12-09 06:48 | ANE.PACU2 ---
Inpatient post-anesthesia follow up: Airway intact: Yes Vital signs: Temperature 98 F Pulse Rate 61 Respiratory Rate 18 Blood Pressure 130/88 Pulse Oximetry 96 Oxygen Delivery Me thod Room Air Oxygen Flow Rate 8 Fraction of Inspir ed Oxygen Hydration adequate: Yes Nausea and vomiting: No Pain level: 2 Mental status: Baseline
== END 2020-12-08 19:30 | disposition home or self-care (01) ==
PROVIDERS: PCP Family Medicine; Visit Provider Urology
PROC: 0TJB8ZZ Inspection of Bladder, Via Natural or Artificial Opening Endoscopic (ICD-10-PCS; CPT 52000; principal; 2020-12-08 16:30)
PROC: (CPT 52310; 2020-12-08 16:30)
PROC: (CPT 50590; 2020-12-08 16:30)
DX: N20.0 Calculus of kidney (principal); K21.9 Gastro-esophageal reflux disease without esophagitis; F41.9 Anxiety disorder, unspecified; I25.10 Atherosclerotic heart disease of native coronary artery without angina pectoris; E78.5 Hyperlipidemia, unspecified
CPT/HCPCS: 50590; 52310; 74018; J1956; J2405; J2704; J3010; J7030

== ENCOUNTER → 2020-12-15 13:58 | Outpatient (BNVA) | payer MEDICAID, SELFPAY | PROVIDERS: PCP Family Medicine; Visit Provider Family Medicine | DX: F41.9 Anxiety disorder, unspecified (principal); E78.5 Hyperlipidemia, unspecified; F31.9 Bipolar disorder, unspecified; I95.89 Other hypotension; K21.9 Gastro-esophageal reflux disease without esophagitis; I10 Essential (primary) hypertension | CPT/HCPCS: 80053; 80061; 84443; 85025 ==

== ENCOUNTER 2021-03-10 08:15 | Outpatient (CLI) | payer MEDICAID, SELFPAY ==
--- NOTE | 2021-03-10 08:00 | XRR_ITS ---
PROCEDURE INFORMATION: Exam: XR Abdomen Exam date and time: 03/10/2021 8:23 AM Age: 60 years old Clinical indication: Other: Follow up kidney stones; Additional info: N20.0 - calculus of kidney TECHNIQUE: Imaging protocol: XR of the abdomen. Views: Frontal supine view of the abdomen. 1 View. COMPARISON: CR XR KUB [id number] 12/08/2020 3:16 PM FINDINGS: Tubes, catheters and devices: Interval removal of previously visualized left double-J catheter. Gastrointestinal tract: Colonic dilatation and prominent stool. Organs: Obscuration of the renal fossa by bowel gas and stool. CT may be of benefit for further evaluation of suspected urolithiasis. Bones/joints: Mild degenerative change. XR/XR KUB [id number] IMPRESSION: Obscuration of the renal fossa by bowel gas and stool. CT may be of benefit for further evaluation of suspected urolithiasis.
== END 2021-03-10 08:16 | disposition home or self-care (01) ==
LOC: RAD 08:16
PROVIDERS: PCP Family Medicine; Visit Provider Urology
DX: N20.0 Calculus of kidney (principal)
CPT/HCPCS: 74018; 81003

== ENCOUNTER → 2021-03-13 10:17 | Outpatient (BNVA) | payer MEDICAID, SELFPAY | PROVIDERS: PCP Family Medicine; Visit Provider Family Medicine | DX: E78.5 Hyperlipidemia, unspecified (principal); Z12.5 Encounter for screening for malignant neoplasm of prostate; Z00.00 Encounter for general adult medical examination without abnormal findings | CPT/HCPCS: 80053; 80061; 84443; 85025; G0103 ==

== ENCOUNTER 2021-04-25 15:08 | Emergency (ER) | payer MEDICAID, SELFPAY ==
[2021-04-25 15:32] VITALS: BP 75/58; PULSE 78; RESP 17; TEMP 37.6; O2SAT 95; BMI 35.4
[2021-04-25 15:42] VITALS: PULSE 71; RESP 14; O2SAT 92
--- NOTE | 2021-04-25 15:59 | ECG_ITS ---
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 Measurements Intervals [place] Rate: 67 P: 54 PA: 145 QRS: 54 QRSD: 83 T: -6 QT: 407 QTc: 432 Interpretive Statements SINUS RHYTHM NONSPECIFIC T-WAVE ABNORMALITY Compared to ECG 02/02/2019 06:21:56 T-wave abnormality now present Ventricular premature complex(es) no longer present Electronically Signed On 04-26-2021 18:21:18 CDT by Linda Silva M.D. [email or web address].[email or web address]/store/[id number] f
--- NOTE | 2021-04-25 15:59 | XRR_ITS ---
PROCEDURE INFORMATION: Exam: XR Chest Exam date and time: 04/25/2021 3:59 PM Age: 60 years old Clinical indication: Cough and dyspnea; Additional info: Dyspnea/cough TECHNIQUE: Imaging protocol: XR of the chest. Views: 1 view. COMPARISON: CR XR chest 2V* [id number] 12/13/2019 2:24 PM FINDINGS: Tubes, catheters and devices: The electronic stimulator is seen projecting over the left chest. Lungs: Unremarkable. No consolidation. Pleural spaces: Unremarkable. No pleural effusion. No pneumothorax. Heart/Mediastinum: Stable cardiomediastinal silhouette. Bones/joints: Unremarkable. XR/XR chest 1V portable [id number] IMPRESSION: No evidence of active cardiopulmonary disease.
--- NOTE | 2021-04-25 16:01 | W.ED.GENADLT ---
HPI - General Adult General: Chief complaint: General Medical Stated complaint: WEAK, SENT [place] [facility] [place] Time Seen by Provider: 04/25/21 15:52 History of Present Illness: HPI narrative: Patient presents emergency room 60-year-old male complaining of recent onset of fever cough and shortness of breath. A few loose stools no vomiting. Onset (ago): minute(s) Radiation: non-radiation Severity: mild Relieving factors: none Exacerbating factors: none Associated symptoms: Deny chest pain, confusion, cough, diaphoresis, decreased appetite, dyspnea, fevers/chills, headache(s), malaise, nausea, rash, palpitations, seizures, short of breath, syncope, vomiting or weakness Treatments prior to arrival: none Review of Systems Const: Denies: malaise or diaphoresis ENMT: Denies: throat pain, ear or mastoid pain, nasal discharge or nasal congestion Card: Denies: chest pain, palpitations or syncope Resp: Denies: dyspnea GI: Denies: nausea or vomiting : Denies: flank pain, dysuria, urinary frequency or urinary urgency Skin/Breast: Denies: rash Neuro: Denies: headache(s) or confusion PFSH ED PFSH: Medical History (Updated 04/25/21 @ 17:43 by Mingo Hansen DO) Anxiety Bipolar 1 disorder Calcium renal calculus Chronic kidney disease Depression Dyslipidemia Epilepsy GERD (gastroesophageal reflux disease) Hematochezia Hypernatremia 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 Fadi Faria; Replacement of subcutaneous programmable pulse generator, with connection to vagal nerve stimulator electrode array. 05/26/2006 Dr. Fadi Faria. Implantation of vagal nerve stimulating electrode. Implantation of subcutaneous pulse generator for connection to cranial nerve stimulating electrode array. Family History Brother Cancer Other CAD (coronary artery disease) Family history unknown Social History Smoking and tobacco status: never smoked Alcohol intake: never Household members: friend(s) Marital status: Single Current occupational status: unemployed and disabled History of recent travel: No Physical Exam Const: COMMON NORMALS: no acute distress GENERAL APPEARANCE: cooperative and comfortable ORIENTATION/CONSCIOUSNESS: Yes awake HENMT: COMMON NORMALS: normocephalic, atraumatic and hearing grossly normal bilaterally HEAD & SCALP: normocephalic and atraumatic Neck/C-Spine: COMMON NORMALS: no JVD Resp: COMMON NORMALS: normal respiratory effort, No retractions, No use of accessory muscles and clear to auscultation bilaterally AUSCULTATION: clear to auscultation bilaterally Cardio: COMMON NORMALS: no JVD, regular rate, regular rhythm and No murmurs present (Cardio) RATE: regular rate RHYTHM: regular rhythm GI: COMMON NORMALS: Soft to palpation and No hepatosplenomegaly present AUSCULTATION: Yes normoactive bowel sounds PALPATION: Yes Soft to palpation, No Tenderness to palpation present (GI), No Guarding due to palpation present (GI) and Yes No hepatosplenomegaly present Extremity: COMMON NORMALS: normal to inspection, capillary refill normal, no clubbing, cyanosis or edema, no calf tenderness and no pedal edema Skin: COMMON NORMALS: no rashes or lesions noted GENERAL SKIN EXAM: no rashes or lesions noted Course Vital Signs: Vital signs: Vital Signs Temperature 99.7 F H 04/25/21 15:32 Pulse Rate 64 04/25/21 18:00 Respiratory Rate 14 04/25/21 18:00 Blood Pressure 137/86 04/25/21 18:00 Pulse Oximetry 98 04/25/21 18:00 MDM - General Adult MDM Narrative: Medical decision making narrative: Reviewed labs with patient. Suspect COVID-19 discharge home self quarantine until results back for any worsening symptoms return. Lab Data: Labs: Lab Results 04/25/21 04/25/21 04/25/21 Range/Units 16:33 16:33 16:33 WBC 5.2 (4.0-10.0) 10^3/ uL RBC 4.41 (4.1-5.3) 10^6/u L Hgb 13.6 (11.7-16.6) g/dL Hct 40.7 L (42.0-52.0) % MCV 92.3 (80-94) fL MCH 30.8 (28.0-34.0) pg MCHC 33.4 (30.0-36.0) g/dL RDW 13.6 (12.1-15.1) % Plt Count 104 L (130-400) 10^3/c mm MPV 11.3 H (7.4-10.4) fL Neut % (Auto) 84.2 % Lymph % (Auto) 10.0 % [place] % (Auto) 5.0 % Eos % (Auto) 0.2 % Baso % (Auto) 0.2 % Neut # (Auto) 4.40 (1.8-7.7) 10^3/u L Lymph # (Auto) 0.5 L (0.8-4.8) 10^3/u L [place] # (Auto) 0.3 (0.2-0.9) 10^3/u L Eos # (Auto) 0.0 (0.0-0.8) 10^3/u L Baso # (Auto) 0.0 (0.0-0.1) 10^3/u L Nucleated RBC % (a uto) 0 % Nucleated RBCs # 0.0 /100WBC Sodium 138 (136-145) mmol/L Potassium 4.2 (3.5-5.1) mmol/L Chloride 107 (98-107) mmol/L Carbon Dioxide 21 L (22-29) mmol/L Anion Gap 14.2 (5-19) BUN 20 (8-23) mg/dL Creatinine 1.2 (0.7-1.2) mg/dL GFR Calculation 61.6 L (90-130) mL/min Glucose 92 (65-115) mg/dL Calculated Osmolal ity 288 (285-295) mOsm/k g Lactic Acid 1.1 (0.5-2.2) mmol/L Calcium 8.3 L (8.5-10.5) mg/dL Total Bilirubin 0.4 (0.15-1.2) mg/dL AST 1009 H (0-40) U/L ALT 815 H (0-41) U/L Alkaline Phosphata se 82 (40-130) IU/L Creatine Kinase 294 (39-308) U/L Troponin T Baselin e (0-15) ng/L Total Protein 5.7 L (6.6-8.7) g/dL Albumin 3.7 (3.5-5.2) g/dL Globulin 2.0 (1.3-4.6) g/dL Urine Color (Yellow) Urine Appearance (CLEAR) Urine pH (5-7) Ur Specific Gravit y (1.005-1.030) Urine Protein (Negative) Urine Glucose (UA) (Normal) Urine Ketones (Negative) Urine Blood (Negative) Urine Nitrate (Negative) Urine Bilirubin (Negative) Urine Urobilinogen (Negative) mg/dL Ur Leukocyte Nayeli ase (Negative) Urine RBC (0-2) /hpf Urine WBC (0-5) /hpf Ur Squamous Epith Cells (0-5) /hpf Amorphous Sediment Urine Bacteria (NONE) /hpf Hyaline Casts /lpf Coarse Granular Ca sts /lpf Urine Mucus /hpf Serum Ketones (Negative) Nasal/Oral COVID-1 9 PCR 04/25/21 04/25/21 04/25/21 Range/Units 16:33 16:33 17:16 WBC (4.0-10.0) 10^3/ uL RBC (4.1-5.3) 10^6/u L Hgb (11.7-16.6) g/dL Hct (42.0-52.0) % MCV (80-94) fL MCH (28.0-34.0) pg MCHC (30.0-36.0) g/dL RDW (12.1-15.1) % Plt Count (130-400) 10^3/c mm MPV (7.4-10.4) fL Neut % (Auto) % Lymph % (Auto) % [place] % (Auto) % Eos % (Auto) % Baso % (Auto) % Neut # (Auto) (1.8-7.7) 10^3/u L Lymph # (Auto) (0.8-4.8) 10^3/u L [place] # (Auto) (0.2-0.9) 10^3/u L Eos # (Auto) (0.0-0.8) 10^3/u L Baso # (Auto) (0.0-0.1) 10^3/u L Nucleated RBC % (a uto) % Nucleated RBCs # /100WBC Sodium (136-145) mmol/L Potassium (3.5-5.1) mmol/L Chloride (98-107) mmol/L Carbon Dioxide (22-29) mmol/L Anion Gap (5-19) BUN (8-23) mg/dL Creatinine (0.7-1.2) mg/dL GFR Calculation (90-130) mL/min Glucose (65-115) mg/dL Calculated Osmolal ity (285-295) mOsm/k g Lactic Acid (0.5-2.2) mmol/L Calcium (8.5-10.5) mg/dL Total Bilirubin (0.15-1.2) mg/dL AST (0-40) U/L ALT (0-41) U/L Alkaline Phosphata se (40-130) IU/L Creatine Kinase (39-308) U/L Troponin T Baselin e 12 (0-15) ng/L Total Protein (6.6-8.7) g/dL Albumin (3.5-5.2) g/dL Globulin (1.3-4.6) g/dL Urine Color Dark yellow (Yellow) Urine Appearance Clear (CLEAR) Urine pH 5 (5-7) Ur Specific Gravit y 1.015 (1.005-1.030) Urine Protein Trace (Negative) Urine Glucose (UA) Norm (Normal) Urine Ketones Negative (Negative) Urine Blood 2+ H (Negative) Urine Nitrate Negative (Negative) Urine Bilirubin 1+ H (Negative) Urine Urobilinogen 8 H (Negative) mg/dL Ur Leukocyte Nayeli ase Trace H (Negative) Urine RBC 0-4 H (0-2) /hpf Urine WBC 0-4 H (0-5) /hpf Ur Squamous Epith Cells None (0-5) /hpf Amorphous Sediment Not Reportable Urine Bacteria Trace (NONE) /hpf Hyaline Casts 5-10 H /lpf Coarse Granular Ca sts Rare /lpf Urine Mucus 2+ /hpf Serum Ketones Negative (Negative) Nasal/Oral COVID-1 9 PCR 04/25/ Range/Units 18:06 WBC (4.0-10.0) 10^3/ uL RBC (4.1-5.3) 10^6/u L Hgb (11.7-16.6) g/dL Hct (42.0-52.0) % MCV (80-94) fL MCH (28.0-34.0) pg MCHC (30.0-36.0) g/dL RDW (12.1-15.1) % Plt Count (130-400) 10^3/c mm MPV (7.4-10.4) fL Neut % (Auto) % Lymph % (Auto) % [place] % (Auto) % Eos % (Auto) % Baso % (Auto) % Neut # (Auto) (1.8-7.7) 10^3/u L Lymph # (Auto) (0.8-4.8) 10^3/u L [place] # (Auto) (0.2-0.9) 10^3/u L Eos # (Auto) (0.0-0.8) 10^3/u L Baso # (Auto) (0.0-0.1) 10^3/u L Nucleated RBC % (a uto) % Nucleated RBCs # /100WBC Sodium (136-145) mmol/L Potassium (3.5-5.1) mmol/L Chloride (98-107) mmol/L Carbon Dioxide (22-29) mmol/L Anion Gap (5-19) BUN (8-23) mg/dL Creatinine (0.7-1.2) mg/dL GFR Calculation (90-130) mL/min Glucose (65-115) mg/dL Calculated Osmolal ity (285-295) mOsm/k g Lactic Acid (0.5-2.2) mmol/L Calcium (8.5-10.5) mg/dL Total Bilirubin (0.15-1.2) mg/dL AST (0-40) U/L ALT (0-41) U/L Alkaline Phosphata se (40-130) IU/L Creatine Kinase (39-308) U/L Troponin T Baselin e (0-15) ng/L Total Protein (6.6-8.7) g/dL Albumin (3.5-5.2) g/dL Globulin (1.3-4.6) g/dL Urine Color (Yellow) Urine Appearance (CLEAR) Urine pH (5-7) Ur Specific Gravit y (1.005-1.030) Urine Protein (Negative) Urine Glucose (UA) (Normal) Urine Ketones (Negative) Urine Blood (Negative) Urine Nitrate (Negative) Urine Bilirubin (Negative) Urine Urobilinogen (Negative) mg/dL Ur Leukocyte Nayeli ase (Negative) Urine RBC (0-2) /hpf Urine WBC (0-5) /hpf Ur Squamous Epith Cells (0-5) /hpf Amorphous Sediment Urine Bacteria (NONE) /hpf Hyaline Casts /lpf Coarse Granular Ca sts /lpf Urine Mucus /hpf Serum Ketones (Negative) Nasal/Oral COVID-1 9 PCR Cancelled Discharge Plan Discharge Patient Disposition: Home Clinical Impression: Viral URI with cough, Suspected 2019-nCoV infection Condition: Stable Prescriptions: No Action nitroglycerin 0.4 mg tablet, sublingual 0.4 mg SUBLINGUAL Q5M PRN (Reason: Chest Pain) RF: 0 acetaminophen 500 mg tablet 1,000 mg PO BID PRN (Reason: PAIN) RF: 0 albuterol sulfate [Ventolin HFA] 90 mcg/actuation HFA aerosol inhaler 2 puff inhalation Q6H PRN (Reason: shortness of breath or wheezing) Qty: 8.5 RF: 2 hydroxyzine pamoate [Vistaril] 25 mg capsule 25 mg PO Q6H PRN (Reason: itching) Qty: 30 RF: 2 Vitamin A&D Ointment See Rx Instructions .ROUTE .COMPLEX RF: 0 fluoxetine 40 mg capsule 40 mg PO BID@799,1999 RF: 0 zonisamide 100 mg capsule 400 mg PO DAILY@1999 RF: 0 tamsulosin 0.4 mg capsule 0.4 mg PO BID@799,1999 RF: 0 lorazepam 2 mg tablet 2 mg PO DAILY@799 RF: 0 simvastatin 20 mg tablet 20 mg PO DAILY@1999 RF: 0 Miralax 17 gram/dose powder 17 g PO Q2D PRN (Reason: Constipation) RF: 0 Risperdal 1 mg tablet 1 mg PO BEDTIME@1999 RF: 0 finasteride 5 mg tablet 5 mg PO DAILY@799 RF: 0 Lyrica 300 mg capsule 300 mg PO BID@799,1999 RF: 0 Discharge Orders: Discharge ED (Routine); Ordered 04/25/21 Ordered By: Mingo Hansen Referrals: Stefanie Somers MD [Primary Care Provider] - Discharge Diet: Usual diet Discharge Activity: Resume usual activity Patient Instructions: Opioid Safety Coding Level of Care Code ED Screening Tech for Chg Fwd Exam Comprehensive
[2021-04-25] MEDS: ondansetron 2 mg/ML SDV 2 mL 4 MG IVP (16:39)
[2021-04-25] MEDS: sodium chloride 0.9% 1,000 ML 999 ML IV (16:39)
[2021-04-25 16:42] VITALS: BP 96/66; PULSE 66; RESP 14; O2SAT 94
[2021-04-25 16:50] LABS: Basophils % 0.2 %; Eosinophils % 0.2 %; Hematocrit 40.7 % (42.0-52.0); Hemoglobin 13.6 g/dL (11.7-16.6); Lymphocytes # 0.5 10^3/uL (0.8-4.8); Mean Corpuscular HGB Conc 33.4 g/dL (30.0-36.0); Mean Corpuscular Hemoglobin 30.8 pg (28.0-34.0); Mean Corpuscular Volume 92.3 fL (80-94); Mean Platelet Volume 11.3 fL (7.4-10.4); Monocytes # 0.3 10^3/uL (0.2-0.9); Neutrophils % 84.2 %; Nucleated Red Blood Cells % 0 %; Platelet Count 104 10^3/cmm (130-400); Red Blood Count 4.41 10^6/uL (4.1-5.3); Red Cell Distribution Width 13.6 % (12.1-15.1); White Blood Count 5.2 10^3/uL (4.0-10.0)
[2021-04-25 17:00] VITALS: BP 89/61; PULSE 65; RESP 15; O2SAT 95
[2021-04-25 17:04] VITALS: BP 103/67; BP 105/71; BP 89/61
[2021-04-25 17:04] LABS: Lactic Sepsis W/Reflex 1.1 mmol/L (0.5-2.2)
[2021-04-25 17:10] LABS: Troponin(5th) Baseline 12 ng/L (0-15)
[2021-04-25 17:17] LABS: Albumin Level 3.7 g/dL (3.5-5.2); Alkaline Phosphatase 82 IU/L (40-130); Anion Gap 14.2 (5-19); Blood Urea Nitrogen 20 mg/dL (8-23); Calcium 8.3 mg/dL (8.5-10.5); Carbon Dioxide 21 mmol/L (22-29); Chloride 107 mmol/L (98-107); Creatine Phosphokinase 294 U/L (39-308); Glomerular Filtration Rate 61.6 mL/min (90-130); Glucose 92 mg/dL (65-115); Osmolality Calculated 288 mOsm/kg (285-295); Potassium 4.2 mmol/L (3.5-5.1); Sodium 138 mmol/L (136-145); Total Bilirubin 0.4 mg/dL (0.15-1.2); Total Protein 5.7 g/dL (6.6-8.7)
[2021-04-25 17:22] LABS: Ketone (Acetest) Serum Negative (Negative)
[2021-04-25 17:28] LABS: Alanine Aminotransferase 815 U/L (0-41)
[2021-04-25 17:36] LABS: Add Urine Microscopic? YES; Bilirubin Urine 1+ (Negative); Blood Urine 2+ (Negative); Glucose Urine UA Norm (Normal); Ketones Urine Negative (Negative); Leukocyte Esterase Urine Trace (Negative); Nitrate Urine Negative (Negative); Protein Urine Trace (Negative); RBC Urine 0-4 /hpf (0-2); Specific Gravity, Urine 1.015 (1.005-1.030); Urine Appearance Clear (CLEAR); Urine Color Dark Yellow (Yellow); Urobilinogen Urine 8 mg/dL (Negative); WBC Urine 0-4 /hpf (0-5); pH Urine 5 (5-7)
[2021-04-25 17:37] LABS: Add Urine Culture? No; Bacteria Urine TRACE /hpf; Coarse Granular Casts Urine RARE /lpf; Mucus Urine 2+ /hpf
[2021-04-25 17:41] LABS: Aspartate Amino Transferase 1009 U/L (0-40)
--- NOTE | 2021-04-25 17:59 | ECG_ITS ---
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 Measurements Intervals [place] Rate: 66 P: 32 KS: 160 QRS: 13 QRSD: 85 T: 53 QT: 424 QTc: 445 Interpretive Statements SINUS RHYTHM Compared to ECG 02/02/2019 06:21:56 Ventricular premature complex(es) no longer present Electronically Signed On 04-26-2021 18:38:51 CDT by Linda Silva M.D. [email or web address] biloxiKartoonArtblanchard [facility] hospital[facility]/store/OM/[id number]
[2021-04-25 18:00] VITALS: BP 137/86; PULSE 64; RESP 14; O2SAT 98
[2021-04-28 08:29] LABS: Quest SARS-CoV-2 RNA DETECTED (NOT DETECTED)
--- NOTE | 2021-04-29 07:46 | PC.NURSE ---
attempted to contact pt to give covid results. no answer
--- NOTE | 2021-04-30 12:40 | PC.NURSE ---
notified nurse developer relations manager of positive covid results
== END 2021-04-25 18:26 | disposition home or self-care (01) ==
PROVIDERS: Emergency Provider Family Medicine; PCP Family Medicine
DX: J06.9 Acute upper respiratory infection, unspecified (principal); N28.9 Disorder of kidney and ureter, unspecified; E78.5 Hyperlipidemia, unspecified
CPT/HCPCS: 71045; 80053; 81000; 81001; 82009; 82550; 83605; 84484; 85025; 87635; 93005; 96361; 96374; 99284; J2405; J7030

== ENCOUNTER 2021-05-03 23:21 | Emergency (ER) | payer MEDICAID, SELFPAY ==
[2021-05-03 23:28] VITALS: BP 98/72; PULSE 75; RESP 18; TEMP 36.7; O2SAT 91; BMI 27.1
[2021-05-03 23:32] VITALS: BP 113/70; PULSE 74; RESP 24; O2SAT 95
[2021-05-03 23:33] VITALS: O2SAT 91
--- NOTE | 2021-05-03 23:39 | ECG_ITS ---
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 Measurements Intervals [place] Rate: 76 P: 36 MO: 150 QRS: 17 QRSD: 83 T: 55 QT: 389 QTc: 439 Interpretive Statements SINUS RHYTHM NONSPECIFIC T-WAVE ABNORMALITY Compared to ECG 04/25/2021 17:16:25 T-wave abnormality now present Electronically Signed On 05-07-2021 9:56:20 CDT by Linda Silva M.D. [email or web address]/store/OM/[id number]
--- NOTE | 2021-05-03 23:39 | XRR_ITS ---
PROCEDURE INFORMATION: Exam: XR Chest Exam date and time: 05/03/2021 11:39 PM Age: 60 years old Clinical indication: Fever and shortness of breath; Prior surgery; Surgery date: 6+ months; Surgery type: Vns; Patient HX: Fever, SOB, covid+; Additional info: Fever, hypoxia TECHNIQUE: Imaging protocol: XR of the chest. Views: 1 view. COMPARISON: CR (CHEST, ) 04/25/2021 4:02 PM FINDINGS: Tubes, catheters and devices: Electronic device over the left chest with lead extending to the neck is unchanged. Lungs: Bilateral pulmonary infiltrates likely relate to infectious/inflammatory process and would be typical for viral pneumonia. Pleural spaces: Unremarkable. No pleural effusion. No pneumothorax. Heart/Mediastinum: Unremarkable. No cardiomegaly. Bones/joints: No acute findings. XR/XR chest 1V portable [id number] IMPRESSION: New bilateral pulmonary infiltrates most suspicious for infectious/inflammatory process.
--- NOTE | 2021-05-03 23:42 | W.ED.COVID ---
HPI - COVID General: Chief Complaint: COVID symptoms Stated Complaint: COVID Time Seen by Provider: 05/03/21 23:38 Triage information: Has fever, cough or shortness of breath. Exposure to COVID + person last 14 days History of Present Illness: HPI Narrative: Patient was brought in from a independent living center. Patient was diagnosed with COVID-19 on 25 April. Patient's registered nurse is here with him. It was reported that patient had a low oxygen level of 87% on room air at the center this evening. Patient appears mildly unwell. Registered nurse with patient states that he has been increasing weakness. Patient has a history of intellectual disability. Patient responds appropriately to questions. COVID 19 common symptoms: positive dyspnea COVID Results: SARS-CoV-2 RNA (RT-PCR) Detected (NOT DETECTED) A 04/25/21 18:06 04/25/21 Nasal/Oral Coronavirus 2019 PCR Not detected 12/05/20 11:05 12/05/20 Review of Systems General: Reports: 10 or more systems reviewed and unremarkable except in HPI and below Resp: Reports: dyspnea [facility] ED PFSH: Medical History (Updated 05/04/21 @ 01:05 by AKASH Yee) Anxiety Bipolar 1 disorder Calcium renal calculus Chronic kidney disease Depression Dyslipidemia Epilepsy GERD (gastroesophageal reflux disease) Hematochezia Hypernatremia 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 Fadi Faria; Replacement of subcutaneous programmable pulse generator, with connection to vagal nerve stimulator electrode array. 05/26/2006 Dr. Fadi Faria. Implantation of vagal nerve stimulating electrode. Implantation of subcutaneous pulse generator for connection to cranial nerve stimulating electrode array. Family History Brother Cancer Other CAD (coronary artery disease) Family history unknown Social History Smoking and tobacco status: never smoked Alcohol intake: never Household members: friend(s) Marital status: Single Current occupational status: unemployed and disabled History of recent travel: No Physical Exam Const: COMMON NORMALS: no acute distress and patient oriented x3 GENERAL APPEARANCE: cooperative HENMT: COMMON NORMALS: normocephalic and Normal external nose present HEAD & SCALP: normal to inspection and normocephalic NOSE: Normal external nose present MOUTH: Normal oral and palatal mucosa present Eye: GENERAL EYE: appearance normal, both eyes and all related structures Neck/C-Spine: COMMON NORMALS: full ROM Chest: COMMONS NORMALS: normal inspection of the chest Resp: COMMON NORMALS: normal respiratory effort EFFORT & INSPECTION: Yes able to speak in complete sentences AUSCULTATION: diminished lung sounds Cardio: COMMON NORMALS: regular rate and regular rhythm RATE: regular rate RHYTHM: regular rhythm GI: COMMON NORMALS: non-tender Back/Pelvis: COMMON NORMALS: thoracic and lumbar spine normal to inspection Extremity: COMMON NORMALS: normal to inspection Neuro: COMMON NORMALS: patient oriented x3 and moves all extremities Psych: COMMON NORMALS: mental status grossly normal and cooperative Skin: COMMON NORMALS: no rashes or lesions noted GENERAL SKIN EXAM: no rashes or lesions noted Course Vital Signs: Vital signs: Vital Signs Temperature 98.1 F 05/03/21 23:28 Pulse Rate 78 05/04/21 00:01 Respiratory Rate 23 H 05/04/21 00:01 Blood Pressure 115/78 05/04/21 00:01 Pulse Oximetry 95 05/04/21 00:01 MDM - COVID MDM Narrative: Medical decision making narrative: 60-year-old male patient comes in with hypoxia and diagnosis of COVID-19 on April 25. No since the . On exam we note some decreased breath sounds with crackles in the left base. Heart rates regular. Vital signs are normal except for some low blood pressure. At 98/72. Differential diagnosis includes respiratory failure, pneumonia, COVID-19, dehydration. Laboratory values noted a pro calcitonin of 0.8, D-dimer 1.3, CPK 445, and CRP of 144. White blood cell count was 2.7. Chest x-ray noted patchy bilateral pneumonia. Patient was given supplemental oxygen of 2 L per nasal cannula and went to 95%. Patient was infused with 2 L of IV fluids. Patient was started on dexamethasone 6 mg. We will continue patient with dexamethasone twice a day for 5 more days. Patient was encouraged to use albuterol inhaler at least 4 times a days. We will also continue patient on oxygen at his formerly [facility]. I reviewed this with the registered nurse and she is supportive of this care regimen at this time. She does not note that if patient seems to worsen he can be return to the ER. Lab Data: Labs: Lab Results 05/03/21 05/03/21 05/03/21 Range/Units 00:00 23:40 23:40 WBC 2.7 L (4.0-10.0) 10^3/ uL RBC 4.87 (4.1-5.3) 10^6/u L Hgb 14.7 (11.7-16.6) g/dL Hct 44.8 (42.0-52.0) % MCV 92.0 (80-94) fL MCH 30.2 (28.0-34.0) pg MCHC 32.8 (30.0-36.0) g/dL RDW 13.5 (12.1-15.1) % Plt Count 93 L (130-400) 10^3/c mm MPV 11.1 H (7.4-10.4) fL Neut % (Auto) 69.8 % Lymph % (Auto) 24.3 % [place] % (Auto) 4.8 % Eos % (Auto) 0.0 % Baso % (Auto) 0.0 % Neut # (Auto) 1.90 (1.8-7.7) 10^3/u L Lymph # (Auto) 0.7 L (0.8-4.8) 10^3/u L [place] # (Auto) 0.1 L (0.2-0.9) 10^3/u L Eos # (Auto) 0.0 (0.0-0.8) 10^3/u L Baso # (Auto) 0.0 (0.0-0.1) 10^3/u L Nucleated RBC % (a uto) 0 % Nucleated RBCs # 0.0 /100WBC D-Dimer 1.32 H (0-0.59) ug/mIFE U Specimen Type Arterial Sample Site Radial, right ABG pH 7.39 (7.35-7.45) ABG pCO2 34.1 L (35-45) mmHg ABG pO2 69.8 L (80.0-100.0) mmH g ABG HCO3 20.5 L (22-26) mmol/L ABG Base Excess -3.7 L (-2.0-2.0) mmol/ L Hubert Test Pos Hematocrit 44.0 (42-52) % O2 Delivery Device Nc O2 Liters/Min 2.0 % Senior Planner ID [email or web address] Sodium (136-145) mmol/L Potassium (3.5-5.1) mmol/L Chloride (98-107) mmol/L Carbon Dioxide (22-29) mmol/L Anion Gap (5-19) BUN (8-23) mg/dL Creatinine (0.7-1.2) mg/dL GFR Calculation (90-130) mL/min Glucose (65-115) mg/dL Calculated Osmolal ity (285-295) mOsm/k g Lactic Acid (0.5-2.2) mmol/L Calcium (8.5-10.5) mg/dL Total Bilirubin (0.15-1.2) mg/dL AST (0-40) U/L ALT (0-41) U/L Alkaline Phosphata se (40-130) IU/L Creatine Kinase (39-308) U/L Troponin T Gen 5 n g/L (0-15) ng/L C-Reactive Protein (0.0-4.9) mg/L NT-Pro-B Natriuret Pep (0-125) pg/mL Total Protein (6.6-8.7) g/dL Albumin (3.5-5.2) g/dL Globulin (1.3-4.6) g/dL Procalcitonin (0-0.5) ng/mL 05/03/21 05/03/21 05/03/21 Range/Units 23:40 23:40 23:40 WBC (4.0-10.0) 10^3/ uL RBC (4.1-5.3) 10^6/u L Hgb (11.7-16.6) g/dL Hct (42.0-52.0) % MCV (80-94) fL MCH (28.0-34.0) pg MCHC (30.0-36.0) g/dL RDW (12.1-15.1) % Plt Count (130-400) 10^3/c mm MPV (7.4-10.4) fL Neut % (Auto) % Lymph % (Auto) % [place] % (Auto) % Eos % (Auto) % Baso % (Auto) % Neut # (Auto) (1.8-7.7) 10^3/u L Lymph # (Auto) (0.8-4.8) 10^3/u L [place] # (Auto) (0.2-0.9) 10^3/u L Eos # (Auto) (0.0-0.8) 10^3/u L Baso # (Auto) (0.0-0.1) 10^3/u L Nucleated RBC % (a uto) % Nucleated RBCs # /100WBC D-Dimer (0-0.59) ug/mIFE U Specimen Type Sample Site ABG pH (7.35-7.45) ABG pCO2 (35-45) mmHg ABG pO2 (80.0-100.0) mmH g ABG HCO3 (22-26) mmol/L ABG Base Excess (-2.0-2.0) mmol/ L Hubert Test Hematocrit (42-52) % O2 Delivery Device O2 Liters/Min % Senior Planner ID Sodium 137 (136-145) mmol/L Potassium 3.9 (3.5-5.1) mmol/L Chloride 106 (98-107) mmol/L Carbon Dioxide 20 L (22-29) mmol/L Anion Gap 14.9 (5-19) BUN 24 H (8-23) mg/dL Creatinine 1.2 (0.7-1.2) mg/dL GFR Calculation 61.6 L (90-130) mL/min Glucose 88 (65-115) mg/dL Calculated Osmolal ity 287 (285-295) mOsm/k g Lactic Acid 1.1 (0.5-2.2) mmol/L Calcium 7.9 L (8.5-10.5) mg/dL Total Bilirubin 0.5 (0.15-1.2) mg/dL AST 180 H (0-40) U/L ALT 237 H (0-41) U/L Alkaline Phosphata se 89 (40-130) IU/L Creatine Kinase 445 H* (39-308) U/L Troponin T Gen 5 n g/L 15 (0-15) ng/L C-Reactive Protein 144.4 H (0.0-4.9) mg/L NT-Pro-B Natriuret Pep 94 (0-125) pg/mL Total Protein 5.4 L (6.6-8.7) g/dL Albumin 2.8 L (3.5-5.2) g/dL Globulin 2.6 (1.3-4.6) g/dL Procalcitonin 0.83 H (0-0.5) ng/mL COVID Results: SARS-CoV-2 RNA (RT-PCR) Detected (NOT DETECTED) A 04/25/21 18:06 04/25/21 Nasal/Oral Coronavirus 2019 PCR Not detected 12/05/20 11:05 12/05/20 Discharge Plan Discharge Patient Disposition: Home Clinical Impression: Pneumonia due to 2019 novel coronavirus Condition: Stable Prescriptions: New ibuprofen 400 mg tablet 400 mg PO Q8H PRN (Reason: fever or pain) Qty: 30 RF: 0 dexamethasone 6 mg tablet 6 mg PO BID Qty: 10 RF: 0 No Action nitroglycerin 0.4 mg tablet, sublingual 0.4 mg SUBLINGUAL Q5M PRN (Reason: Chest Pain) RF: 0 acetaminophen 500 mg tablet 1,000 mg PO BID PRN (Reason: PAIN) RF: 0 albuterol sulfate [Ventolin HFA] 90 mcg/actuation HFA aerosol inhaler 2 puff inhalation Q6H PRN (Reason: shortness of breath or wheezing) Qty: 8.5 RF: 2 hydroxyzine pamoate [Vistaril] 25 mg capsule 25 mg PO Q6H PRN (Reason: itching) Qty: 30 RF: 2 promethazine-DM 6.25-15 mg/5 mL syrup 5 ml PO Q6H PRN (Reason: cough) Qty: 118 RF: 1 Vitamin A&D Ointment See Rx Instructions .ROUTE .COMPLEX RF: 0 fluoxetine 40 mg capsule 40 mg PO BID@799,1999 RF: 0 zonisamide 100 mg capsule 400 mg PO DAILY@1999 RF: 0 tamsulosin 0.4 mg capsule 0.4 mg PO BID@799,1999 RF: 0 lorazepam 2 mg tablet 2 mg PO DAILY@799 RF: 0 simvastatin 20 mg tablet 20 mg PO DAILY@1999 RF: 0 Miralax 17 gram/dose powder 17 g PO Q2D PRN (Reason: Constipation) RF: 0 Risperdal 1 mg tablet 1 mg PO BEDTIME@1999 RF: 0 finasteride 5 mg tablet 5 mg PO DAILY@0800 RF: 0 Lyrica 300 mg capsule 300 mg PO BID@799,1999 RF: 0 Discharge Orders: Discharge ED (Routine); Ordered 05/04/21 Ordered By: Crispin Hoffmann Other Ambulatory Orders: DME: Oxygen (Order) Location: None Selected Ordered By: Crispin Hoffmann Referrals: Stefanie Somers MD [Primary Care Provider] - Discharge Diet: Usual diet Discharge Activity: Increase activity as tolerated Patient Instructions: Viral Pneumonia (ED), Opioid Safety Activity Restrictions/Additional Instructions: Encourage use of albuterol inhaler 4 times a day. Oxygen 2 to 3 L by nasal cannula to maintain pulse oxygen saturation to above 90%. Encourage plenty of fluids. Encourage deep bradycardia and cough. Return to the emergency room for worsening symptoms. Follow-up with primary care as needed for further instructions. 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
[2021-05-03 23:57] LABS: Hematocrit 44.8 % (42.0-52.0); Hemoglobin 14.7 g/dL (11.7-16.6); Lymphocytes # 0.7 10^3/uL (0.8-4.8); Lymphocytes % 24.3 %; Mean Corpuscular HGB Conc 32.8 g/dL (30.0-36.0); Mean Corpuscular Hemoglobin 30.2 pg (28.0-34.0); Mean Platelet Volume 11.1 fL (7.4-10.4); Monocytes # 0.1 10^3/uL (0.2-0.9); Monocytes % 4.8 %; Neutrophils % 69.8 %; Nucleated Red Blood Cells % 0 %; Platelet Count 93 10^3/cmm (130-400); Red Blood Count 4.87 10^6/uL (4.1-5.3); Red Cell Distribution Width 13.5 % (12.1-15.1); White Blood Count 2.7 10^3/uL (4.0-10.0)
[2021-05-04 00:01] VITALS: BP 115/78; PULSE 78; RESP 23; O2SAT 95
[2021-05-04 00:01] LABS: ABG PCO2 34.1 mmHg (35-45); ABG PH Result 7.39 (7.35-7.45); Base Excess ABG -3.7 mmol/L (-2.0-2.0); Blood Gas Allen Test Pos; Blood Gas Sample Site Radial, right; Blood Gas Sample Type Arterial; HCO3 ABG 20.5 mmol/L (22-26); Oxygen Device NC; PO2 ABG 69.8 mmHg (80.0-100.0)
[2021-05-04 00:11] LABS: D Dimer 1.32 ug/mIFEU (0-0.59)
[2021-05-04 00:19] LABS: Lactic Sepsis W/Reflex 1.1 mmol/L (0.5-2.2)
[2021-05-04 00:20] LABS: Troponin T (5th) Once 15 ng/L (0-15)
[2021-05-04 00:27] LABS: NT Pro B Type Natriuretic Pept 94 pg/mL (0-125); Procalcitonin 0.83 ng/mL (0-0.5)
[2021-05-04 00:30] LABS: Slide Review Slide Review Perform
[2021-05-04 00:39] LABS: Alanine Aminotransferase 237 U/L (0-41); Albumin Level 2.8 g/dL (3.5-5.2); Alkaline Phosphatase 89 IU/L (40-130); Anion Gap 14.9 (5-19); Aspartate Amino Transferase 180 U/L (0-40); Blood Urea Nitrogen 24 mg/dL (8-23); C Reactive Protein 144.4 mg/L (0.0-4.9); Calcium 7.9 mg/dL (8.5-10.5); Carbon Dioxide 20 mmol/L (22-29); Chloride 106 mmol/L (98-107); Globulin 2.6 g/dL (1.3-4.6); Glomerular Filtration Rate 61.6 mL/min (90-130); Glucose 88 mg/dL (65-115); Osmolality Calculated 287 mOsm/kg (285-295); Potassium 3.9 mmol/L (3.5-5.1); Sodium 137 mmol/L (136-145); Total Bilirubin 0.5 mg/dL (0.15-1.2); Total Protein 5.4 g/dL (6.6-8.7)
[2021-05-04 00:42] LABS: Creatine Phosphokinase 445 U/L (39-308)
[2021-05-04] MEDS: sodium chloride 0.9% 1,000 ML 999 ML IV (00:53)
[2021-05-04] MEDS: dexamethasone 10 mg/mL INJ 6 MG IVP (01:11)
[2021-05-04] MEDS: albuterol 8 gm MDI 2 PUFF INHALATION (01:21)
[2021-05-04 01:25] VITALS: PULSE 84; RESP 18; O2SAT 94
[2021-05-04 02:27] VITALS: BP 110/66; PULSE 81; RESP 24; O2SAT 94
[2021-05-04 03:35] VITALS: BP 113/77; PULSE 78; RESP 20; O2SAT 95
--- NOTE | 2021-05-07 09:54 | DCPLANNER ---
Anabell from [facility] called embedded case manager and asked if embedded case manager could certify home O2 for patient with medicaid. marina manager called the pre certification number to pre certify oxygen for patient. Oxygen was certified for patient, embedded case manager called Anabell at [facility] and let her know that the pre certification was completed for patients oxygen.
== END 2021-05-04 03:37 | disposition home or self-care (01) ==
PROVIDERS: Emergency Provider Nurse Practitioner Family; PCP Family Medicine
DX: U07.1 COVID-19 (principal); J12.82 Pneumonia due to coronavirus disease 2019; E78.5 Hyperlipidemia, unspecified
CPT/HCPCS: 36600; 71045; 80053; 82550; 82803; 83605; 83880; 84145; 84484; 85025; 85378; 86140; 87040; 93005; 94640; 96361; 96374; 99284; J1100; J3535; J7030

== ENCOUNTER 2021-05-08 08:55 | Emergency (ER) | payer MEDICAID, SELFPAY ==
[2021-05-08] VITALS (14 sets, daily range): BP systolic 123–169; BP diastolic 80–113; PULSE 71–85; RESP 16–25; TEMP 36.3–36.6; O2SAT 78–100; BMI 29.5
[2021-05-08] MEDS: succinylcholine 20 mg/mL SDV 10mL 120 MG IVP (09:02)
--- NOTE | 2021-05-08 09:15 | W.ED.COVID ---
HPI - COVID General: Chief Complaint: COVID symptoms Stated Complaint: worsening covid symptoms Time Seen by Provider: 05/08/21 08:56 Triage information: Has fever, cough or shortness of breath. Exposure to COVID + person last 14 days History of Present Illness: HPI Narrative: 60-year-old male with intellectual disability who brought in by EMS in acute respiratory failure. On arrival in the field his sats were up at 70% on room air. He was pale and diaphoretic but denied any chest pain. Patient has known Covid positive he tested positive on 04/25/2021 by PCR at our facility. On 15 L when nonrebreather mask patient is only achieving sat of 78%. He has altered mental status from his baseline per family report to EMS. MD complaint: known COVID positive Prior testing date: 04/25/21 COVID 19 common symptoms: positive fever(s), chills, cough, non-productive cough, dyspnea, fatigue and diarrhea; negative nasal congestion, nausea or vomiting COVID 19 other sytmptoms: positive requiring oxygen; negative chest pain Onset (ago): week(s) Severity: severe and rapidly worsening Pertinent comorbid conditions: hypertension and obesity Treatment prior to arrival: steroids COVID Results: SARS-CoV-2 RNA (RT-PCR) Detected (NOT DETECTED) A 04/25/21 18:06 04/25/21 Nasal/Oral Coronavirus 2019 PCR Not detected 12/05/20 11:05 12/05/20 Review of Systems Const: Reports: fever(s), chills and fatigue ENMT: Denies: nasal congestion Card: Denies: chest pain, edema, dyspnea on exertion or orthopnea Resp: Reports: dyspnea and non-productive cough GI: Reports: diarrhea; Denies: nausea or vomiting [facility] ED PFSH: Medical History (Updated 05/10/21 @ 15:37 by Mingo Hansen DO) Anxiety Bipolar 1 disorder Calcium renal calculus Chronic kidney disease Depression Dyslipidemia Epilepsy GERD (gastroesophageal reflux disease) Hematochezia Hypernatremia 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 Fadi Faria; Replacement of subcutaneous programmable pulse generator, with connection to vagal nerve stimulator electrode array. 05/26/2006 Dr. Fadi Faria. Implantation of vagal nerve stimulating electrode. Implantation of subcutaneous pulse generator for connection to cranial nerve stimulating electrode array. Family History Brother Cancer Other CAD (coronary artery disease) Family history unknown Social History Smoking and tobacco status: never smoked Alcohol intake: never Household members: friend(s) Marital status: Single Current occupational status: unemployed and disabled History of recent travel: No Physical Exam HENMT: COMMON NORMALS: normocephalic and atraumatic HEAD & SCALP: normocephalic and atraumatic Neck/C-Spine: COMMON NORMALS: no JVD Chest: OTHER: Able neurostimulator palpable left subclavicular space Resp: EFFORT & INSPECTION: Yes abnormal respiratory pattern, Yes tachypneic, Yes labored, Yes grunting, Yes Actively coughing and Yes uses accessory muscles AUSCULTATION: crackles and wheezes Cardio: COMMON NORMALS: no JVD, regular rhythm and No murmurs present (Cardio) RATE: tachycardic RHYTHM: regular rhythm GI: COMMON NORMALS: Soft to palpation and No hepatosplenomegaly present AUSCULTATION: Yes normoactive bowel sounds PALPATION: Yes Soft to palpation, No Tenderness to palpation present (GI), No Guarding due to palpation present (GI) and Yes No hepatosplenomegaly present Procedures Central Line Placement Left SC: Time Out Performed: Yes Patient Placed on Monitor/Pulse Ox: Yes MD Prep: mask, gown and gloves Central Line Prep: Chlorhexidine scrub Ultrasound Used for Placement: Yes Central Line Lumen Inserted: triple Post Procedure: sutured in place, good blood return, all ports aspirated, flushed, capped and sterile dressing applied Post Procedure X-Ray: tip of catheter in good position Patient Tolerated Procedure: well Complications: none Intubation Time out performed: Yes sedative: Etomidate Mg Given: 30 paralytic: Succinylcholine Mg Given: 120 Laryngoscope: fiber optic video scope Assist Device Used: fiber optic device ET Tube Size: 8.5 ET Tube Uncuffed: No Tube Secured Depth (cm): 23 Tube Placement Confirmation: visualized tube passing through cords, equal breath sounds bilaterally, no breath sounds over epigastrium and confirmation by capnometry Patient Tolerated Procedure: well Intubation Complications: none Course Vital Signs: Vital signs: Vital Signs Temperature 98 F 05/09/21 01:39 Pulse Rate 80 05/09/21 01:39 Respiratory Rate 20 H 05/09/21 01:39 Blood Pressure 102/68 05/09/21 01:39 Pulse Oximetry 92 05/09/21 01:39 MDM - COVID MDM Narrative: Medical decision making narrative: Patient in acute respiratory distress on arrival and intubated. Had difficult time getting IV access central line was placed. Patient has severe Covid pneumonitis he also urinary retention although creatinine was fairly good. After extended period of attempting to find Covid ICU bed ultimately were able to find a Covid ICU bed in [facility]. We had called 92 facilities prior to getting acceptance there. We do not have a Covid ICU bed available at our facility due to surge crisis. Lab Data: Labs: Lab Results 05/08/21 05/08/21 05/08/21 Range/Units 10:00 10:18 10:18 WBC 8.2 (4.0-10.0) 10^3/ uL RBC 4.58 (4.1-5.3) 10^6/u L Hgb 14.1 (11.7-16.6) g/dL Hct 41.4 L (42.0-52.0) % MCV 90.4 (80-94) fL MCH 30.8 (28.0-34.0) pg MCHC 34.1 (30.0-36.0) g/dL RDW 14.0 (12.1-15.1) % Plt Count 151 (130-400) 10^3/c mm MPV 10.9 H (7.4-10.4) fL Neut % (Auto) 91.7 % Lymph % (Auto) 3.4 % [place] % (Auto) 2.6 % Eos % (Auto) 0.0 % Baso % (Auto) 0.1 % Neut # (Auto) 7.51 (1.8-7.7) 10^3/u L Lymph # (Auto) 0.3 L (0.8-4.8) 10^3/u L [place] # (Auto) 0.2 (0.2-0.9) 10^3/u L Eos # (Auto) 0.0 (0.0-0.8) 10^3/u L Baso # (Auto) 0.0 (0.0-0.1) 10^3/u L Nucleated RBC % (a uto) 0 % Nucleated RBCs # 0.0 /100WBC D-Dimer 3.64 H (0-0.59) ug/mIFE U Specimen Type Arterial Sample Site Radial, left ABG pH 7.43 (7.35-7.45) ABG pCO2 31.6 L (35-45) mmHg ABG pO2 207.0 H (80.0-100.0) mmH g ABG HCO3 20.9 L (22-26) mmol/L ABG O2 Saturation 99.2 ABG Base Excess -2.4 L (-2.0-2.0) mmol/ L Hubert Test Pos A-a O2 Gradient 60.3 H (5-10) mmHg Hematocrit 45.5 (42-52) % Hgb O2 Saturation 95.9 (95-100) % Carboxyhemoglobin 1.7 (0.4-20.1) %THgb Methemoglobin 1.6 H (0.4-1.5) % Total Hemoglobin 14.9 (14-18) g/dL Sodium 145.0 H (131-143) mmol/L Potassium 4.1 (3.5-5.0) mmol/L Glucose 99.0 (70-115) mg/dL Ionized Calcium 1.2 (1.1-1.4) mmol/L O2 Delivery Device Vent FiO2 100.0 % Tidal Volume 0.52 PEEP 10.0 cmH20 [employer] Program Coordinator ID glc Chloride (98-107) mmol/L Carbon Dioxide (22-29) mmol/L Anion Gap (5-19) BUN (8-23) mg/dL Creatinine (0.7-1.2) mg/dL GFR Calculation (90-130) mL/min Calculated Osmolal ity (285-295) mOsm/k g Lactic Acid (0.5-2.2) mmol/L Calcium (8.5-10.5) mg/dL Total Bilirubin (0.15-1.2) mg/dL AST (0-40) U/L ALT (0-41) U/L Alkaline Phosphata se (40-130) IU/L Creatine Kinase (39-308) U/L C-Reactive Protein (0.0-4.9) mg/L Total Protein (6.6-8.7) g/dL Albumin (3.5-5.2) g/dL Globulin (1.3-4.6) g/dL 05/08/21 05/08/21 Range/Units 10:18 10:18 WBC (4.0-10.0) 10^3/ uL RBC (4.1-5.3) 10^6/u L Hgb (11.7-16.6) g/dL Hct (42.0-52.0) % MCV (80-94) fL MCH (28.0-34.0) pg MCHC (30.0-36.0) g/dL RDW (12.1-15.1) % Plt Count (130-400) 10^3/c mm MPV (7.4-10.4) fL Neut % (Auto) % Lymph % (Auto) % [place] % (Auto) % Eos % (Auto) % Baso % (Auto) % Neut # (Auto) (1.8-7.7) 10^3/u L Lymph # (Auto) (0.8-4.8) 10^3/u L [place] # (Auto) (0.2-0.9) 10^3/u L Eos # (Auto) (0.0-0.8) 10^3/u L Baso # (Auto) (0.0-0.1) 10^3/u L Nucleated RBC % (a uto) % Nucleated RBCs # /100WBC D-Dimer (0-0.59) ug/mIFE U Specimen Type Sample Site ABG pH (7.35-7.45) ABG pCO2 (35-45) mmHg ABG pO2 (80.0-100.0) mmH g ABG HCO3 (22-26) mmol/L ABG O2 Saturation ABG Base Excess (-2.0-2.0) mmol/ L Hubert Test A-a O2 Gradient (5-10) mmHg Hematocrit (42-52) % Hgb O2 Saturation (95-100) % Carboxyhemoglobin (0.4-20.1) %THgb Methemoglobin (0.4-1.5) % Total Hemoglobin (14-18) g/dL Sodium 142 (131-143) mmol/L Potassium 4.2 (3.5-5.0) mmol/L Glucose 94 (70-115) mg/dL Ionized Calcium (1.1-1.4) mmol/L O2 Delivery Device FiO2 % Tidal Volume PEEP cmH20 [employer] Program Coordinator ID Chloride 113 H (98-107) mmol/L Carbon Dioxide 20 L (22-29) mmol/L Anion Gap 13.2 (5-19) BUN 34 H (8-23) mg/dL Creatinine 0.9 (0.7-1.2) mg/dL GFR Calculation 85.8 L (90-130) mL/min Calculated Osmolal ity 301 H (285-295) mOsm/k g Lactic Acid 1.3 (0.5-2.2) mmol/L Calcium 7.9 L (8.5-10.5) mg/dL Total Bilirubin 0.8 (0.15-1.2) mg/dL AST 131 H (0-40) U/L ALT 191 H (0-41) U/L Alkaline Phosphata se 90 (40-130) IU/L Creatine Kinase 343 H* (39-308) U/L C-Reactive Protein 74.4 H (0.0-4.9) mg/L Total Protein 5.2 L (6.6-8.7) g/dL Albumin 2.7 L (3.5-5.2) g/dL Globulin 2.5 (1.3-4.6) g/dL COVID Results: SARS-CoV-2 RNA (RT-PCR) Detected (NOT DETECTED) A 04/25/21 18:06 04/25/21 Nasal/Oral Coronavirus 2019 PCR Not detected 12/05/20 11:05 12/05/20 Critical Care Time Critical Care Time: Critical Care Time: Yes Total Critical Care Time: 60 Attestation: This case had a high probability of a clinically significant, sudden, or life threatening deterioration of this patient's condition which required my full and direct attention, intervention and personal management. Discharge Plan Discharge Patient Disposition: Transfer to ED Clinical Impression: Pneumonia due to COVID-19 virus, Respiratory failure, acute, Urinary retention Prescriptions: No Action nitroglycerin 0.4 mg tablet, sublingual 0.4 mg SUBLINGUAL Q5M PRN (Reason: Chest Pain) RF: 0 acetaminophen 500 mg tablet 1,000 mg PO QID PRN (Reason: PAIN) RF: 0 albuterol sulfate [Ventolin HFA] 90 mcg/actuation HFA aerosol inhaler 2 puff inhalation Q6H PRN (Reason: shortness of breath or wheezing) Qty: 8.5 RF: 2 hydroxyzine pamoate [Vistaril] 25 mg capsule 25 mg PO Q6H PRN (Reason: itching) Qty: 30 RF: 2 promethazine-DM 6.25-15 mg/5 mL syrup 5 ml PO Q6H PRN (Reason: cough) Qty: 118 RF: 1 Vitamin A&D Ointment See Rx Instructions .ROUTE .COMPLEX RF: 0 fluoxetine 40 mg capsule 40 mg PO BID@799,1999 RF: 0 zonisamide 100 mg capsule 400 mg PO BEDTIME@1999 RF: 0 tamsulosin 0.4 mg capsule 0.4 mg PO BID@ RF: 0 lorazepam 2 mg tablet 2 mg PO DAILY@799 RF: 0 simvastatin 20 mg tablet 20 mg PO DAILY@1999 RF: 0 polyethylene glycol 3350 [Miralax] 17 gram/dose powder 17 g PO DAILY PRN (Reason: Constipation) RF: 0 risperidone [Risperdal] 1 mg tablet 1 mg PO BEDTIME@1999 RF: 0 finasteride 5 mg tablet 5 mg PO DAILY@0800 RF: 0 pregabalin [Lyrica] 300 mg capsule 300 mg PO BID@ RF: 0 ibuprofen 400 mg tablet 400 mg PO Q8H PRN (Reason: fever or pain) Qty: 30 RF: 0 dexamethasone 6 mg tablet 6 mg PO BID Qty: 10 RF: 0 Referrals: Stefanie Somers MD [Primary Care Provider] - Coding Level of Care Code ED Propeller Inspector for Chg Fwd Exam Detailed
[2021-05-08] MEDS: vecuronium 10 mg SDV IVP ×2 (09:20→10:27)
--- NOTE | 2021-05-08 09:20 | XR_ITS ---
WS: [id number] PORTABLE CHEST HISTORY: respiratory failure, post intubation COMPARISON: 05/03/2021 Endotracheal tube has been placed in good position. Tip ends at the clavicular head level and should not be retracted. Orogastric tube in good position with tip in the LEFT upper abdomen. Increasing consolidation throughout the central and lower RIGHT lung. There is additional mild inters titial thickening in the LEFT lower lung field. No pleural effusion or pneumothorax. Cardiac size: Normal. Mediastinum/Aorta: Normal mediastinum. No osseous abnormality seen. XR/XR chest 1V portable 13315 IMPRESSION: 1. Endotracheal and nasogastric tubes are in good position. 2. New pneumonia in the mid and lower RIGHT lung.
--- NOTE | 2021-05-08 09:42 | ECG_ITS ---
[facility] ED Test Date: 2021-05-08 Pat Name: Martin Estes Department: Room: Gender: Male Research And Development Manager: : 1960 Requested By: Mingo Farmer Order Number: [id number] Albaro MD: Linda Silva M.D. Measurements Intervals [place] Rate: 79 P: 58 [place]: 148 QRS: 47 QRSD: 81 T: 66 QT: 395 QTc: 453 Interpretive Statements SINUS RHYTHM WITH OCCASIONAL VENTRICULAR PREMATURE COMPLEXES NONSPECIFIC T-WAVE ABNORMALITY Compared to ECG 05/04/2021 00:02:52 Ventricular premature complex(es) now present T-wave abnormality still present Electronically Signed On 05-08-2021 16:45:36 CDT by Linda Silva M.D. [email or web address] [email or web address]/store/[id number]
[2021-05-08 10:09] LABS: ABG PCO2 31.6 mmHg (35-45); ABG PH Result 7.43 (7.35-7.45); Alveolar-Arterial Oxygen Gradi 60.3 mmHg (5-10); Arterial Blood Gas Hematocrit 45.5 % (42-52); Base Excess ABG -2.4 mmol/L (-2.0-2.0); Blood Gas Allen Test Pos; Blood Gas Operator Identificat glc; Blood Gas Sample Site Radial, left; Blood Gas Sample Type Arterial; Blood Gas Tidal Volume 0.52; Carboxyhemoglobin 1.7 %THgb (0.4-20.1); HCO3 ABG 20.9 mmol/L (22-26); HGB O2 Sat 95.9 % (95-100); Ionized Calcium Level - ABG 1.2 mmol/L (1.1-1.4); Methemoglobin 1.6 % (0.4-1.5); Oxygen Device VENT; Oxygen Saturation ABG 99.2; Potassium Level - ABG 4.1 mmol/L (3.5-5.0); Total Hemoglobin 14.9 g/dL (14-18)
[2021-05-08 10:30] LABS: Basophils % 0.1 %; Hematocrit 41.4 % (42.0-52.0); Hemoglobin 14.1 g/dL (11.7-16.6); Lymphocytes # 0.3 10^3/uL (0.8-4.8); Lymphocytes % 3.4 %; Mean Corpuscular HGB Conc 34.1 g/dL (30.0-36.0); Mean Corpuscular Hemoglobin 30.8 pg (28.0-34.0); Mean Corpuscular Volume 90.4 fL (80-94); Mean Platelet Volume 10.9 fL (7.4-10.4); Monocytes # 0.2 10^3/uL (0.2-0.9); Monocytes % 2.6 %; Neutrophils # 7.51 10^3/uL (1.8-7.7); Neutrophils % 91.7 %; Nucleated Red Blood Cells % 0 %; Platelet Count 151 10^3/cmm (130-400); Red Blood Count 4.58 10^6/uL (4.1-5.3); White Blood Count 8.2 10^3/uL (4.0-10.0)
[2021-05-08 10:57] LABS: Alanine Aminotransferase 191 U/L (0-41); Albumin Level 2.7 g/dL (3.5-5.2); Alkaline Phosphatase 90 IU/L (40-130); Anion Gap 13.2 (5-19); Aspartate Amino Transferase 131 U/L (0-40); Blood Urea Nitrogen 34 mg/dL (8-23); C Reactive Protein 74.4 mg/L (0.0-4.9); Calcium 7.9 mg/dL (8.5-10.5); Carbon Dioxide 20 mmol/L (22-29); Chloride 113 mmol/L (98-107); Globulin 2.5 g/dL (1.3-4.6); Glomerular Filtration Rate 85.8 mL/min (90-130); Glucose 94 mg/dL (65-115); Osmolality Calculated 301 mOsm/kg (285-295); Potassium 4.2 mmol/L (3.5-5.1); Sodium 142 mmol/L (136-145); Total Bilirubin 0.8 mg/dL (0.15-1.2); Total Protein 5.2 g/dL (6.6-8.7)
[2021-05-08 10:58] LABS: Lactic Sepsis W/Reflex 1.3 mmol/L (0.5-2.2)
[2021-05-08 11:00] LABS: Creatine Phosphokinase 343 U/L (39-308)
[2021-05-08 11:12] LABS: D Dimer 3.64 ug/mIFEU (0-0.59)
[2021-05-08] MEDS: bacitracin ointment Pkt 1 EACH TOPICAL (11:53)
--- NOTE | 2021-05-08 12:18 | XR_ITS ---
WS: [id number] PORTABLE CHEST HISTORY: Line placement. COMPARISON: 05/08/2021 Endotracheal nasogastric tubes are in good position. LEFT central line is been placed with tip in the distal SVC. Bilateral nerve stimulator projects over the LEFT thorax. Bilateral areas of pulmonary consolidation, most significant in the mid and lower RIGHT lung. No ceja ge. No pleural effusion or pneumothorax. Cardiac size: Normal. Mediastinum/Aorta: Normal mediastinum. No osseous abnormality seen. XR/XR chest 1V portable [id number] IMPRESSION: 1. Interval placement of the LEFT central line with no complications. 2. Nasogastric and endotracheal tubes remain in good position. 3. Bilateral lower lobe opacifications consistent with pneumonia.
[2021-05-08] MEDS: remdesivir 200 MG in sodium chloride 0.9% (100 ml) 100 ML 100 MG IV (12:54)
[2021-05-08] MEDS: sodium chloride 0.9% 1,000 ML 150 ML IV (12:54)
--- NOTE | 2021-05-08 15:56 | XRR_ITS ---
PROCEDURE INFORMATION: Exam: XR Chest Exam date and time: 05/08/2021 3:56 PM Age: 60 years old Clinical indication: Cough and dyspnea; Additional info: Dyspnea/cough TECHNIQUE: Imaging protocol: XR of the chest. Views: 1 view. COMPARISON: CR XR chest 1V portable [id number] 05/08/2021 12:42 PM FINDINGS: The lung opacities have slightly worsened since the prior exam, particularly in the right upper lobe. No other significant change. The ETT, left subclavian central venous catheter, and stimulator device in the left anterior chest wall appear stable. A nasogastric tube remains in place. The heart is normal in size. XR/XR chest 1V portable [id number] IMPRESSION: Slight worsening of the lung opacities. No other significant change.
--- NOTE | 2021-05-08 17:12 | PC.NURSE ---
Yue< Pt sisiter updated on transfer and gives verbal permission to transfer
--- NOTE | 2021-05-08 19:06 | PC.NURSE ---
PAtient fighting sedation and somewhat awake. Advised Caroline Troncoso, ordered to titrate fentanyl drip to 100 mcg/hr and versed drip to 10.
[2021-05-09 01:39] VITALS: BP 102/68; PULSE 80; RESP 20; TEMP 36.6; O2SAT 92
== END 2021-05-08 22:00 ==
PROVIDERS: Emergency Provider Family Medicine; PCP Family Medicine
DX: U07.1 COVID-19 (principal); J12.82 Pneumonia due to coronavirus disease 2019; J96.00 Acute respiratory failure, unspecified whether with hypoxia or hypercapnia; R33.9 Retention of urine, unspecified; E78.5 Hyperlipidemia, unspecified
CPT/HCPCS: 31500; 36415; 36556; 36600; 51702; 71045; 80051; 80053; 82330; 82550; 82805; 83605; 85025; 85378; 86140; 87040; 87070; 87205; 93005; 94002; 94799; 96365; 96366; 96367; 96368; 96375; 96376; 99291; 99292; J0330; J2250; J3010; J3262; J3490; J7030

== ENCOUNTER → 2021-07-14 10:52 | Outpatient (BNVA) | payer MEDICAID, SELFPAY | PROVIDERS: PCP Family Medicine; Visit Provider Specialist | DX: G40.209 Localization-related (focal) (partial) symptomatic epilepsy and epileptic syndromes with complex partial seizures, not intractable, without status epilepticus (principal); G40.309 Generalized idiopathic epilepsy and epileptic syndromes, not intractable, without status epilepticus; Z96.82 Presence of neurostimulator; Z87.891 Personal history of nicotine dependence | CPT/HCPCS: 95971; 99214; 99215 ==

== ENCOUNTER → 2021-07-15 11:13 | Outpatient (BNVA) | payer MEDICAID, SELFPAY | PROVIDERS: PCP Family Medicine; Visit Provider Family Medicine | DX: E78.5 Hyperlipidemia, unspecified (principal); F31.9 Bipolar disorder, unspecified; F41.9 Anxiety disorder, unspecified | CPT/HCPCS: 80053; 80061; 84443; 85025 ==

== ENCOUNTER → 2021-07-23 13:12 | Outpatient (BNVA) | payer MEDICAID, SELFPAY | PROVIDERS: PCP Family Medicine; Visit Provider Nurse Practitioner Family | DX: R33.9 Retention of urine, unspecified (principal) | CPT/HCPCS: 81003 ==

== ENCOUNTER 2021-09-09 08:41 | Outpatient (CLI) | payer MEDICAID, SELFPAY ==
--- NOTE | 2021-09-09 08:45 | XR_ITS ---
WS: [id number] Exam: XR KUB [id number] Date/Time of Exam: 09/09/2021 8:45 AM Reason For Exam: renal calculus Comparison 03/10/2021. 1 cm calcifications superimposing the lower pole the left kidney and may represent a renal calculus. No bowel obstruction or free air. Moderate amount of stool throughout colon. No sign of organ enlarge ment. Moderate distention of urinary bladder. XR/XR KUB [id number] IMPRESSION: 1. 1 cm calcification seen over the lower pole the left kidney which may repres ent a renal stone. 2. Constipation. No acute abdominal finding.
== END 2021-09-09 08:42 | disposition home or self-care (01) ==
LOC: RAD 08:43
PROVIDERS: PCP Family Medicine; Visit Provider Urology
DX: N20.0 Calculus of kidney (principal); K59.00 Constipation, unspecified
CPT/HCPCS: 74018; 81003; 87086

== ENCOUNTER 2021-11-01 22:21 | Emergency (ER) | payer MEDICAID, SELFPAY ==
[2021-11-01 22:22] VITALS: BP 99/63; PULSE 56; RESP 18; TEMP 36.4; O2SAT 95; BMI 32.5
--- NOTE | 2021-11-01 22:29 | XRR_ITS ---
PROCEDURE INFORMATION: Exam: XR Chest Exam date and time: 11/01/2021 10:29 PM Age: 61 years old Clinical indication: Other: Weakness; Prior surgery; Surgery date: 6+ months; Surgery type: Stimulator TECHNIQUE: Imaging protocol: XR of the chest. Views: 1 view. COMPARISON: CR XR chest 1V portable [id number] 05/08/2021 4:23 PM FINDINGS: Tubes, catheters and devices: Vagus nerve stimulator in place. Lungs: Hazy opacity in the right lung may be secondary to scarring versus pneumonia/atelectasis. Pleural spaces: Unremarkable. No pleural effusion. No pneumothorax. Heart/Mediastinum: Unremarkable. No cardiomegaly. Bones/joints: Unremarkable. XR/XR chest 1V portable [id number] IMPRESSION: Hazy opacity in the right lung may be secondary to scarring versus pneumonia/atelectasis.
--- NOTE | 2021-11-01 22:30 | ECG_ITS ---
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1960 Requested By: Cassie Troncoso Order Number: [id number] Reading MD: ROSA MARIA HAMILTON Measurements Intervals [place] Rate: 53 P: 21 [place]: 155 QRS: 5 QRSD: 89 T: 47 QT: 443 QTc: 417 Interpretive Statements SINUS BRADYCARDIA Compared to ECG 05/08/2021 09:49:18 Sinus rhythm no longer present Ventricular premature complex(es) no longer present T-wave abnormality no longer present Electronically Signed On 11-02-2021 19:51:24 STOCK HANDLER by ROSA MARIA HAMILTON [email or web address] state hospitalChrono Therapeuticsket[facility] pre[facility].[employer]/store/OM/[id number]
--- NOTE | 2021-11-01 22:45 | ED_ITS ---
HPI - General Adult General: Chief complaint: General Medical Stated complaint: HYPOTENSION Time Seen by Provider: 11/01/21 22:23 Source: patient Mode of arrival: ambulatory Limitations: no limitations History of Present Illness: 61-year-old male who is here from a senior living. He has a history of low mental functioning. They state that he had been complaining of some weakness there and his blood pressure was in the 80s. He had no cough no vomiting no fever no diarrhea. Patient here is well-appearing here and answering all my questions appropriately. He does have low functioning but is able to answer my questions when asked him. He states that he has been feeling slightly tired and weak no fever no vomiting no known recent illness Associated symptoms: Deny chest pain, dyspnea, headache(s), nausea, rash or vomiting Review of Systems Const: Denies: fever(s), chills, body aches or change in appetite Eyes: Denies: blurry vision or eye discomfort ENMT: Denies: throat pain or dental pain Card: Denies: chest pain Resp: Denies: dyspnea GI: Denies: abdominal pain, nausea, vomiting or diarrhea : Denies: dysuria Musc: Denies: neck pain or back pain Skin/Breast: Denies: rash Neuro: Denies: headache(s) Psych: Denies: depression Nikolay/Lymph: Denies: easy bruising All/Imm: Denies: urticaria PFSH ED PFSH: Medical History Anxiety Bipolar 1 disorder Calcium renal calculus Chronic kidney disease Depression Dyslipidemia Epilepsy GERD (gastroesophageal reflux disease) Hematochezia Hypernatremia 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 Good emptying proven post catheter removal. Surgical History S/P ureteral stent placement Status post VNS (vagus nerve stimulator) placement 02/07/2020, 12/31/2014; Dr. Fadi Faria; Replacement of subcutaneous programmable pulse generator, with connection to vagal nerve stimulator electrode array. 05/26/2006 Dr. Fadi Faria. Implantation of vagal nerve stimulating electrode. Implantation of subcutaneous pulse generator for connection to cranial nerve stimulating electrode array. Family History Brother Cancer Other CAD (coronary artery disease) Family history unknown Social History Alcohol intake: never Household members: friend(s) Marital status: Single Current occupational status: unemployed and disabled History of recent travel: No Physical Exam Const: COMMON NORMALS: no acute distress, patient oriented x3 and healthy appearing HENMT: COMMON NORMALS: normocephalic and atraumatic HEAD & SCALP: normocephalic and atraumatic Eye: COMMON NORMALS: Equal, round and reactive pupils present and EOMs intact bilaterally PUPIL: Yes Equal, round and reactive pupils present Neck/C-Spine: COMMON NORMALS: full ROM and supple Chest: COMMONS NORMALS: normal inspection of the chest and normal palpation of entire chest wall Resp: COMMON NORMALS: normal respiratory effort, No retractions, No use of accessory muscles and clear to auscultation bilaterally AUSCULTATION: clear to auscultation bilaterally Cardio: COMMON NORMALS: regular rate, regular rhythm and No murmurs present (Cardio) RATE: regular rate RHYTHM: regular rhythm GI: COMMON NORMALS: Normal to inspection, nondistended, normoactive bowel sounds present, Soft to palpation, non-tender and no masses PALPATION: Yes Soft to palpation Extremity: COMMON NORMALS: normal to inspection and full ROM Neuro: COMMON NORMALS: patient oriented x3, moves all extremities and no focal motor deficits Psych: COMMON NORMALS: mental status grossly normal, Normal thought process present and cooperative THOUGHT PROCESS: Normal thought process present Skin: COMMON NORMALS: no rashes or lesions noted and no wounds GENERAL SKIN EXAM: no rashes or lesions noted Course Vital Signs: Vital signs: Vital Signs Temperature 97.6 F 11/01/21 22:22 Pulse Rate 56 L 11/01/21 22:22 Respiratory Rate 18 11/01/21 22:22 Blood Pressure 109/68 11/01/21 23:37 Pulse Oximetry 95 11/01/21 23:37 [facility] - General Adult Medical Decision Making Patient presents here with some dehydration he is well-appearing here blood pressure is much improved after IV fluids currently 129/79 does have an acute cystitis no signs of sepsis will give him IV antibiotics prescribe him Keflex and have him follow-up with PCP caregivers here and agrees and understands the plan. Lab Data : 11/01/21 23:13 11/01/21 23:13 Radiology Impressions Chest X-Ray 11/01/21 22:29 IMPRESSION: Hazy opacity in the right lung may be secondary to scarring versus pneumonia/atelectasis. Laboratory Results WBC 5.0 10^3/uL (4.0-10.0) 11/01/21 23:13 RBC 4.68 10^6/uL (4.1-5.3) 11/01/21 23:13 Hgb 13.4 g/dL (11.7-16.6) 11/01/21 23:13 Hct 42.4 % (42.0-52.0) 11/01/21 23:13 MCV 90.6 fl (80-94) 11/01/21 23:13 MCH 28.6 pg (28.0-34.0) 11/01/21 23:13 MCHC 31.6 g/dL (30.0-36.0) 11/01/21 23:13 RDW 15.6 % (12.1-15.1) H 11/01/21 23:13 Plt Count 118 10^3/cmm (130-400) L 11/01/21 23:13 MPV 11.2 fL (7.4-10.4) H 11/01/21 23:13 Neut % (Auto) 64.2 % 11/01/21 23:13 Lymph % (Auto) 17.9 % 11/01/21 23:13 [place] % (Auto) 11.5 % 11/01/21 23:13 Eos % (Auto) 5.2 % 11/01/21 23:13 Baso % (Auto) 0.6 % 11/01/21 23:13 Neut # (Auto) 3.24 10^3/uL (1.8-7.7) 11/01/21 23:13 Lymph # (Auto) 0.9 10^3/uL (0.8-4.8) 11/01/21 23:13 [place] # (Auto) 0.6 10^3/uL (0.2-0.9) 11/01/21 23:13 Eos # (Auto) 0.3 10^3/uL (0.0-0.8) 11/01/21 23:13 Baso # (Auto) 0.0 10^3/uL (0.0-0.1) 11/01/21 23:13 Nucleated RBC % (auto) 0 % 11/01/21 23:13 Nucleated RBCs # 0.0 /100WBC 11/01/21 23:13 PT 13.10 SECONDS (12.1-14.9) 11/01/21 23:44 INR 0.97 (0.8-1.2) 11/01/21 23:44 Sodium 139 mmol/L (136-145) 11/01/21 23:13 Potassium 4.0 mmol/L (3.5-5.1) 11/01/21 23:13 Chloride 110 mmol/L (98-107) H 11/01/21 23:13 Carbon Dioxide 21 mmol/L (22-29) L 11/01/21 23:13 Anion Gap 12.0 (5-19) 11/01/21 23:13 BUN 22 mg/dL (8-23) 11/01/21 23:13 Creatinine 1.0 mg/dL (0.7-1.2) 11/01/21 23:13 GFR Calculation 75.7 mL/min (90-130) L 11/01/21 23:13 Glucose 98 mg/dL (65-115) 11/01/21 23:13 Calculated Osmolality 291 mOsm/kg (285-295) 11/01/21 23:13 Lactate 0.8 mmol/L (0.5-2.2) 11/01/21 23:13 Calcium 8.4 mg/dL (8.5-10.5) L 11/01/21 23:13 Total Bilirubin 0.2 mg/dL (0.15-1.2) 11/01/21 23:13 AST 44 U/L (0-40) H 11/01/21 23:13 ALT 42 U/L (0-41) H 11/01/21 23:13 Alkaline Phosphatase 86 IU/L (40-130) 11/01/21 23:13 Total Protein 5.2 g/dL (6.6-8.7) L 11/01/21 23:13 Albumin 3.1 g/dL (3.5-5.2) L 11/01/21 23:13 Globulin 2.1 g/dL (1.3-4.6) 11/01/21 23:13 Lipase 53 U/L (13-60) 11/01/21 23:13 Urine Color Yellow (Yellow) 11/01/21 23:51 Urine Appearance Hazy (CLEAR) A 11/01/21 23:51 Urine pH 6 (5-7) 11/01/21 23:51 Ur Specific [place] 1.015 (1.005-1.030) 11/01/21 23:51 Urine Protein 1+ (Negative) H 11/01/21 23:51 Urine Glucose (UA) Norm (Normal) 11/01/21 23:51 Urine Ketones Negative (Negative) 11/01/21 23:51 Urine Blood 3+ (Negative) H 11/01/21 23:51 Urine Nitrate Negative (Negative) 11/01/21 23:51 Urine Bilirubin Neg (Negative) 11/01/21 23:51 Urine Urobilinogen Norm mg/dL (Negative) 11/01/21 23:51 Ur Leukocyte Esterase 2+ (Negative) H 11/01/21 23:51 Urine RBC Too numerous to cnt /hpf (0-2) H 11/01/21 23:51 Urine WBC Too numerous to cnt /hpf (0-5) H 11/01/21 23:51 Ur Squamous Epith Cells 0-4 /hpf (0-5) H 11/01/21 23:51 Amorphous Sediment Not Reportable 11/01/21 23:51 Urine Bacteria 3+ /hpf (NONE) H 11/01/21 23:51 EKG Data EKG 1: I personally reviewed and interpreted this EKG as follows: EKG interpretation date: 11/01/21 EKG interpretation time: 22:43 Interpretation: sinus pradeep hr [address] or t wave abnormalities qrs 89 qtc 425 Computer generated interpretation: Chest X-Ray 11/01/21 22:29 IMPRESSION: Hazy opacity in the right lung may be secondary to scarring versus pneumonia/atelectasis. Discharge Plan Discharge Patient Disposition: Home Clinical Impression: Acute cystitis Condition: Stable Prescriptions: New cephalexin 500 mg capsule 500 mg PO TID 7 Days Qty: 21 0RF No Action nitroglycerin 0.4 mg tablet, sublingual 0.4 mg SUBLINGUAL Q5M PRN (Reason: Chest Pain) 0RF acetaminophen 500 mg tablet 1,000 mg PO QID PRN (Reason: PAIN) 0RF albuterol sulfate [Ventolin HFA] 90 mcg/actuation HFA aerosol inhaler 2 puff inhalation Q6H PRN (Reason: shortness of breath or wheezing) Qty: 8.5 2RF hydroxyzine pamoate [Vistaril] 25 mg capsule 25 mg PO Q6H PRN (Reason: itching) Qty: 30 2RF senna 8.6 mg capsule 17.2 mg PO DAILY 0RF promethazine-DM 6.25-15 mg/5 mL syrup 5 ml PO Q6H PRN (Reason: cough) Qty: 118 1RF lorazepam 2 mg tablet 2 mg PO DAILY@0800 30 Days Qty: 30 5RF lacosamide 150 mg tablet 150 mg PO BID Qty: 60 5RF pregabalin [Lyrica] 300 mg capsule 300 mg PO BID@799,1999 Qty: 60 3RF Vitamin A&D Ointment See Rx Instructions .ROUTE .COMPLEX 0RF Rx Instructions: APPLY TOPICALLY TO AFFECTED AREA(S) THREE TIMES DAILY NEEDED FOR ABRASIONS. fluoxetine 40 mg capsule 40 mg PO BID@799,1999 0RF zonisamide 100 mg capsule 400 mg PO BEDTIME@1999 0RF tamsulosin 0.4 mg capsule 0.4 mg PO BID@ 0RF simvastatin 20 mg tablet 20 mg PO DAILY@1999 0RF polyethylene glycol 3350 [Miralax] 17 gram/dose powder 17 g PO DAILY PRN (Reason: Constipation) 0RF risperidone [Risperdal] 1 mg tablet 1 mg PO BEDTIME@1999 0RF finasteride 5 mg tablet 5 mg PO DAILY@0800 0RF Discharge Orders: Discharge ED (Routine); Ordered 11/02/21 Ordered By: Cassie Troncoso Referrals: Antione Torres MD [Physician] - 1-3 days Stefanie Somers MD [Primary Care Provider] - Discharge Diet: Advance as tolerated Discharge Activity: Resume usual activity Patient Instructions: Urinary Tract Infection in Men (ED) Coding Level of Care Code ED Student Services Representative for Chg Fwd Exam Comprehensive
[2021-11-01 23:31] LABS: Basophils % 0.6 %; Eosinophils # 0.3 10^3/uL (0.0-0.8); Eosinophils % 5.2 %; Hematocrit 42.4 % (42.0-52.0); Hemoglobin 13.4 g/dL (11.7-16.6); Lymphocytes # 0.9 10^3/uL (0.8-4.8); Lymphocytes % 17.9 %; Mean Corpuscular HGB Conc 31.6 g/dL (30.0-36.0); Mean Corpuscular Hemoglobin 28.6 pg (28.0-34.0); Mean Corpuscular Volume 90.6 fl (80-94); Mean Platelet Volume 11.2 fL (7.4-10.4); Monocytes # 0.6 10^3/uL (0.2-0.9); Monocytes % 11.5 %; Neutrophils # 3.24 10^3/uL (1.8-7.7); Neutrophils % 64.2 %; Nucleated Red Blood Cells % 0 %; Platelet Count 118 10^3/cmm (130-400); Red Blood Count 4.68 10^6/uL (4.1-5.3); Red Cell Distribution Width 15.6 % (12.1-15.1)
[2021-11-01 23:37] VITALS: BP 109/68; O2SAT 95
[2021-11-01 23:37] LABS: Lactate (Lactic Acid level) 0.8 mmol/L (0.5-2.2)
[2021-11-01 23:45] LABS: Alanine Aminotransferase 42 U/L (0-41); Albumin Level 3.1 g/dL (3.5-5.2); Alkaline Phosphatase 86 IU/L (40-130); Aspartate Amino Transferase 44 U/L (0-40); Blood Urea Nitrogen 22 mg/dL (8-23); Calcium 8.4 mg/dL (8.5-10.5); Carbon Dioxide 21 mmol/L (22-29); Chloride 110 mmol/L (98-107); Globulin 2.1 g/dL (1.3-4.6); Glomerular Filtration Rate 75.7 mL/min (90-130); Glucose 98 mg/dL (65-115); Lipase 53 U/L (13-60); Osmolality Calculated 291 mOsm/kg (285-295); Sodium 139 mmol/L (136-145); Total Bilirubin 0.2 mg/dL (0.15-1.2); Total Protein 5.2 g/dL (6.6-8.7)
[2021-11-01] MEDS: sodium chloride 0.9% 1,000 ML 999 ML IV (23:45)
[2021-11-02 00:19] LABS: INR 0.97 (0.8-1.2)
[2021-11-02 00:29] LABS: Bilirubin Urine Neg (Negative); Blood Urine 3+ (Negative); Glucose Urine UA Norm (Normal); Ketones Urine Negative (Negative); Leukocyte Esterase Urine 2+ (Negative); Nitrate Urine Negative (Negative); Protein Urine 1+ (Negative); Specific Gravity, Urine 1.015 (1.005-1.030); Urine Appearance Hazy (CLEAR); Urine Color Yellow (Yellow); Urobilinogen Urine Norm (Negative); pH Urine 6 (5-7)
[2021-11-02 00:30] LABS: Add Urine Microscopic? YES
[2021-11-02 00:32] LABS: Add Urine Culture? Yes; Bacteria Urine 3+ /hpf; RBC Urine TOO NUMEROUS TO CNT /hpf (0-2); Squamous Epithelial Cell Urine 0-4 /hpf (0-5); WBC Urine TOO NUMEROUS TO CNT /hpf (0-5)
[2021-11-02] MEDS: cefTRIAXone 1,000 MG in lidocaine 1% 2.1 ML 1 MG IM (01:07)
[2021-11-02 01:24] VITALS: BP 117/75
== END 2021-11-02 01:27 | disposition home or self-care (01) ==
PROVIDERS: Emergency Provider Emergency Medicine; PCP Family Medicine
DX: N30.00 Acute cystitis without hematuria (principal); E86.0 Dehydration; N18.9 Chronic kidney disease, unspecified; E78.5 Hyperlipidemia, unspecified; G40.209 Localization-related (focal) (partial) symptomatic epilepsy and epileptic syndromes with complex partial seizures, not intractable, without status epilepticus; R41.89 Other symptoms and signs involving cognitive functions and awareness; Z87.448 Personal history of other diseases of urinary system
CPT/HCPCS: 71045; 80053; 81001; 83605; 83690; 85025; 85610; 87040; 87086; 93005; 96360; 96372; 99284; J0696; J7030

== ENCOUNTER → 2021-11-23 14:04 | Outpatient (BNVA) | payer MEDICAID, SELFPAY | PROVIDERS: PCP Family Medicine; Visit Provider Nurse Practitioner Family | DX: N39.0 Urinary tract infection, site not specified (principal); R39.9 Unspecified symptoms and signs involving the genitourinary system | CPT/HCPCS: 81000; 87086 ==

== ENCOUNTER → 2021-12-09 12:27 | Outpatient (BNVA) | payer MEDICAID, SELFPAY | PROVIDERS: PCP Family Medicine; Visit Provider Family Medicine | DX: N39.0 Urinary tract infection, site not specified (principal); F41.9 Anxiety disorder, unspecified | CPT/HCPCS: 81003; 87086 ==

== ENCOUNTER → 2022-01-04 09:36 | Outpatient (BNVA) | payer MEDICAID, SELFPAY | PROVIDERS: PCP Family Medicine; Visit Provider Specialist | DX: G40.109 Localization-related (focal) (partial) symptomatic epilepsy and epileptic syndromes with simple partial seizures, not intractable, without status epilepticus (principal); G40.409 Other generalized epilepsy and epileptic syndromes, not intractable, without status epilepticus; R27.0 Ataxia, unspecified; Z86.16 Personal history of COVID-19; Z96.82 Presence of neurostimulator; Z87.891 Personal history of nicotine dependence | CPT/HCPCS: 95970; 99214 ==

== ENCOUNTER 2022-03-09 09:09 | Outpatient (CLI) | payer MEDICAID, SELFPAY ==
--- NOTE | 2022-03-09 09:00 | XR_ITS ---
WS: [id number] Exam: XR KUB [id number] Date/Time of Exam: 03/09/2022 9:13 AM Reason For Exam: CALCIUM RENAL CALCULUS Comparison 09/09/2021. No bowel obstruction or free air. There may be small calcifications in the region of the right kidney . Moderate amount stool in the transverse and right colon. No sign of organ enlargement. Bony structu res are intact. XR/XR KUB [id number] IMPRESSION: 1. There may be small calcifications in the region of the right kidney that cou ld represent stones. 2. Constipation. No acute abdominal process.
== END 2022-03-09 09:10 | disposition home or self-care (01) ==
LOC: RAD 09:11
PROVIDERS: PCP Family Medicine; Visit Provider Urology
DX: N20.0 Calculus of kidney (principal); K59.00 Constipation, unspecified; N20.9 Urinary calculus, unspecified; R97.20 Elevated prostate specific antigen [PSA]; N39.0 Urinary tract infection, site not specified
CPT/HCPCS: 74018; 81003; 99213

== ENCOUNTER → 2022-03-17 10:48 | Outpatient (BNVA) | payer MEDICAID, SELFPAY | PROVIDERS: PCP Family Medicine; Visit Provider Family Medicine | DX: I95.9 Hypotension, unspecified (principal); Z12.5 Encounter for screening for malignant neoplasm of prostate; E78.5 Hyperlipidemia, unspecified; Z00.00 Encounter for general adult medical examination without abnormal findings; F41.9 Anxiety disorder, unspecified; K21.9 Gastro-esophageal reflux disease without esophagitis; H61.23 Impacted cerumen, bilateral | CPT/HCPCS: 80053; 80061; 85025; G0103 ==

== ENCOUNTER → 2022-04-20 09:00 | Outpatient (BNVA) | payer MEDICAID, SELFPAY | PROVIDERS: PCP Family Medicine; Visit Provider Specialist | DX: Z45.42 Encounter for adjustment and management of neurostimulator (principal); G40.409 Other generalized epilepsy and epileptic syndromes, not intractable, without status epilepticus; Z96.82 Presence of neurostimulator; R26.89 Other abnormalities of gait and mobility | CPT/HCPCS: 95970; 99213; 99214 ==

== ENCOUNTER → 2022-08-03 10:26 | Outpatient (BNVA) | payer MEDICAID, SELFPAY | PROVIDERS: PCP Family Medicine; Visit Provider Specialist | DX: G40.109 Localization-related (focal) (partial) symptomatic epilepsy and epileptic syndromes with simple partial seizures, not intractable, without status epilepticus (principal); Z96.89 Presence of other specified functional implants; F31.9 Bipolar disorder, unspecified; G40.409 Other generalized epilepsy and epileptic syndromes, not intractable, without status epilepticus; Z45.42 Encounter for adjustment and management of neurostimulator; Z87.442 Personal history of urinary calculi | CPT/HCPCS: 95970; 99214 ==

== ENCOUNTER 2022-08-11 11:20 | Emergency (ER) | payer MEDICAID, SELFPAY ==
[2022-08-11] VITALS (7 sets, daily range): BP systolic 95–145; BP diastolic 53–90; PULSE 62–88; RESP 17; TEMP 36.6; O2SAT 95–100; BMI 31.7
--- NOTE | 2022-08-11 12:01 | ECG_ITS ---
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 Measurements Intervals [place] Rate: 71 P: 63 SC: 155 QRS: 51 QRSD: 89 T: 65 QT: 394 QTc: 431 Interpretive Statements SINUS RHYTHM Compared to ECG 11/01/2021 22:43:26 Sinus bradycardia no longer present Electronically Signed On 08-12-2022 11:37:57 TEMPLE MARKER by Linda Silva M.D. [id number]
--- NOTE | 2022-08-11 13:12 | ED_ITS ---
HPI - Chest Pain General: Chief Complaint: Chest Pain Stated Complaint: Chest Pain Time Seen by Provider: 08/11/22 13:12 Limitations: altered mental status History of Present Illness: Mr. Estes is a 62-year-old gentleman with history of psychiatric disorder, epilepsy presenting to the emergency department due to chest discomfort. He did seem to have some changes after seizures and seemed more tired yesterday however woke up this morning reporting some chest discomfort. Currently resolved but does not typically get chest discomfort. History is somewhat limited by patient's baseline mental status. Review of Systems General: Reports: ROS unobtainable due to mental status PFS ED PFS: Medical History Anxiety Bipolar 1 disorder Calcium renal calculus Chronic kidney disease Depression Dyslipidemia Elevated PSA Epilepsy GERD (gastroesophageal reflux disease) Hematochezia Hypernatremia 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 Good emptying proven post catheter removal. Urolithiasis Surgical History S/P ureteral stent placement Status post VNS (vagus nerve stimulator) placement 02/07/2020, 12/31/2014; Dr. Fadi Faria; Replacement of subcutaneous programmable pulse generator, with connection to vagal nerve stimulator electrode array. 05/26/2006 Dr. Fadi Faria. Implantation of vagal nerve stimulating electrode. Implantation of subcutaneous pulse generator for connection to cranial nerve stimulating electrode array. Family History Brother Cancer Other CAD (coronary artery disease) Family history unknown Social History Smoking and tobacco status: never smoked Alcohol intake: never Household members: friend(s) Marital status: Single Current occupational status: unemployed and disabled History of recent travel: No Physical Exam Const: COMMON NORMALS: patient oriented x3 and alert GENERAL APPEARANCE: cooperative and well developed HENMT: COMMON NORMALS: normocephalic and atraumatic HEAD & SCALP: normocephalic and atraumatic Eye: COMMON NORMALS: conjunctivae normal CONJUNCTIVA: Yes conjunctivae normal SCLERA: sclerae normal Neck/C-Spine: COMMON NORMALS: supple GENERAL: Yes trachea midline Resp: COMMON NORMALS: normal respiratory effort EFFORT & INSPECTION: Yes able to speak in complete sentences Cardio: COMMON NORMALS: regular rate and regular rhythm RATE: regular rate RHYTHM: regular rhythm GI: COMMON NORMALS: Soft to palpation PALPATION: Yes Soft to palpation and No Tenderness to palpation present (GI) PERCUSSION: normal to percussion Extremity: GENERAL: Yes normal exam except as noted and No edema Neuro: COMMON NORMALS: patient oriented x3, CN's II-XII intact bilaterally, moves all extremities, no focal motor deficits and no sensory deficits noted SENSORIUM/ORIENTATION: Yes alert and No Orientation impaired Course Vital Signs: Vital signs: Vital Signs Temperature 97.9 F 08/11/22 11:54 Pulse Rate 63 08/11/22 16:59 Respiratory Rate 17 08/11/22 11:54 Blood Pressure 145/70 08/11/22 16:59 Pulse Oximetry 98 08/11/22 16:59 Oxygen Delivery Me thod 08/11/22 16:04 MDM - Chest Pain Medical Decision Making 62-year-old gentleman presenting with chest discomfort associated with arm pain and headache. Reportedly also has positive behavior changes. History is limited by likely baseline mental state. No focal neurologic deficits appreciated. EKG shows sinus rhythm, no STEMI Labs notable for unremarkable hematologic and metabolic panel. 2-hour delta troponin is negative. No UTI. Chest x-ray with no lobar consolidation or pneumothorax. The results of ED evaluation were discussed with the patient including possible disposition options. 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 I discussed prescriptions and/or symptomatic cares (if applicable) including appropriate and responsible use, followup plan, and return precautions. The patient verbalized understanding and felt safe for discharge. I will message case management for further outpatient follow-up and testing as appropriate. Medical Records I reviewed the patient's medical records. Lab Data I reviewed the patient's lab results. 08/11/22 13:40 08/11/22 13:40 Radiology Impressions Chest X-Ray 08/11/22 13:21 Impression: Negative chest. Laboratory Results WBC 7.5 10^3/uL (4.0-10.0) 08/11/22 13:40 RBC 4.85 10^6/uL (4.1-5.3) 08/11/22 13:40 Hgb 14.7 g/dL (11.7-16.6) 08/11/22 13:40 Hct 45.8 % (42.0-52.0) 08/11/22 13:40 MCV 94.4 fl (80-94) H 08/11/22 13:40 MCH 30.3 pg (28.0-34.0) 08/11/22 13:40 MCHC 32.1 g/dL (30.0-36.0) 08/11/22 13:40 RDW 14.1 % (12.1-15.1) 08/11/22 13:40 Plt Count 165 10^3/cmm (130-400) 08/11/22 13:40 MPV 10.8 fL (7.4-10.4) H 08/11/22 13:40 Neut % (Auto) 72.8 % 08/11/22 13:40 Lymph % (Auto) 15.2 % 08/11/22 13:40 [place] % (Auto) 7.7 % 08/11/22 13:40 Eos % (Auto) 3.5 % 08/11/22 13:40 Baso % (Auto) 0.4 % 08/11/22 13:40 Neut # (Auto) 5.47 10^3/uL (1.8-7.7) 08/11/22 13:40 Lymph # (Auto) 1.1 10^3/uL (0.8-4.8) 08/11/22 13:40 [place] # (Auto) 0.6 10^3/uL (0.2-0.9) 08/11/22 13:40 Eos # (Auto) 0.3 10^3/uL (0.0-0.8) 08/11/22 13:40 Baso # (Auto) 0.0 10^3/uL (0.0-0.1) 08/11/22 13:40 Nucleated RBC % (auto) 0 % 08/11/22 13:40 Nucleated RBCs # 0.0 /100WBC 08/11/22 13:40 Sodium 142 mmol/L (136-145) 08/11/22 13:40 Potassium 4.7 mmol/L (3.5-5.1) 08/11/22 13:40 Chloride 106 mmol/L (98-107) 08/11/22 13:40 Carbon Dioxide 25 mmol/L (22-29) 08/11/22 13:40 Anion Gap 15.7 (5-19) 08/11/22 13:40 BUN 14 mg/dL (8-23) 08/11/22 13:40 Creatinine 1.1 mg/dL (0.7-1.2) 08/11/22 13:40 GFR Calculation 67.6 mL/min (90-130) L 08/11/22 13:40 Glucose 76 mg/dL (65-115) 08/11/22 13:40 Calculated Osmolality 293 mOsm/kg (285-295) 08/11/22 13:40 Calcium 9.3 mg/dL (8.5-10.5) 08/11/22 13:40 Total Bilirubin 0.3 mg/dL (0.15-1.2) 08/11/22 13:40 AST 34 U/L (0-40) 08/11/22 13:40 ALT 45 U/L (0-41) H 08/11/22 13:40 Alkaline Phosphatase 100 U/L (40-130) 08/11/22 13:40 Troponin T Baseline 21 ng/L (0-15) H 08/11/22 13:40 Troponin T 120 Minute 19.65 ng/L (0-15) H 08/11/22 15:47 Delta Troponin T -1.35 ABS# (0-10) L 08/11/22 15:47 Total Protein 6.5 g/dL (6.6-8.7) L 08/11/22 13:40 Albumin 3.8 g/dL (3.5-5.2) 08/11/22 13:40 Globulin 2.7 g/dL (1.3-4.6) 08/11/22 13:40 Urine Color Yellow (Yellow) 08/11/22 13:40 Urine Appearance Hazy (CLEAR) A 08/11/22 13:40 Urine pH 8 (5-7) H 08/11/22 13:40 Ur Specific [place] 1.015 (1.005-1.030) 08/11/22 13:40 Urine Protein Neg (Negative) 08/11/22 13:40 Urine Glucose (UA) Norm (Normal) 08/11/22 13:40 Urine Ketones Negative (Negative) 08/11/22 13:40 Urine Blood Neg (Negative) 08/11/22 13:40 Urine Nitrate Negative (Negative) 08/11/22 13:40 Urine Bilirubin Neg (Negative) 08/11/22 13:40 Prot Sulfosalicylic Acd Negative (Negative) 08/11/22 13:40 Urine Urobilinogen Norm mg/dL (Negative) 08/11/22 13:40 Ur Leukocyte Esterase Trace (Negative) H 08/11/22 13:40 Urine RBC 0-4 /hpf (0-2) H 08/11/22 13:40 Urine WBC 0-4 /hpf (0-5) H 08/11/22 13:40 Ur Squamous Epith Cells 0-4 /hpf (0-5) H 08/11/22 13:40 Amorphous Sediment 2+ /hpf 08/11/22 13:40 Urine Bacteria None /hpf (NONE) 08/11/22 13:40 Coronavirus 229E (PCR) Not detected (NOT DETECT) 08/11/22 13:40 SARS-CoV-2 (PCR) Not detected (NOT DETECT) 08/11/22 13:40 Discharge Plan Discharge Patient Disposition: Home Clinical Impression: Chest pain Condition: Stable Prescriptions: No Action nitroglycerin 0.4 mg tablet, sublingual 0.4 mg SUBLINGUAL Q5M PRN (Reason: Chest Pain) acetaminophen 500 mg tablet 1,000 mg PO QID PRN (Reason: PAIN) senna 8.6 mg capsule 17.2 mg PO DAILY lacosamide [Vimpat] 150 mg tablet 150 mg PO BID Qty: 60 5RF promethazine-DM 6.25-15 mg/5 mL syrup 5 ml PO Q6H PRN (Reason: cough) Qty: 118 1RF pregabalin [Lyrica] 300 mg capsule 300 mg PO BID@799,1999 Qty: 60 5RF fluoxetine 40 mg capsule 40 mg PO BID@799,1999 Qty: 180 3RF cenobamate 150 mg (14)- 200 mg (14) tablets,dose pack See Rx Instructions PO PER PKG DIR Qty: 28 0RF Rx Instructions: PO PER PKG DIR cenobamate 12.5 mg (14)- 25 mg (14) tablets,dose pack See Rx Instructions PO PER PKG DIR Qty: 28 0RF Rx Instructions: PO PER PKG DIR cenobamate 50 mg (14)- 100 mg (14) tablets,dose pack See Rx Instructions PO PER PKG DIR Qty: 28 0RF Rx Instructions: PO PER PKG DIR tamsulosin 0.4 mg capsule 0.4 mg PO BID@0800,2000 simvastatin 20 mg tablet 20 mg PO BEDTIME polyethylene glycol 3350 [Miralax] 17 gram/dose powder 17 g PO DAILY PRN (Reason: Constipation) famotidine 20 mg Tablet 20 mg PO DAILY PRN (Reason: Indigestion) Ventolin HFA 90 mcg/actuation Hfa Aerosol Inhaler 2 puff INHALATION Q6H PRN (Reason: Shortness Of Breath Or Wheezing) A,D-aloe gnkc-fmvjycroky-l.pet Ointment 1 ea TOPICAL TID PRN (Reason: Rash) zonisamide 100 mg capsule 400 mg PO BEDTIME lorazepam 2 mg tablet 2 mg PO DAILY Risperdal 1 mg tablet 1 mg PO BEDTIME hydroxyzine pamoate 25 mg capsule 25 mg PO Q6H PRN (Reason: Itching) finasteride 5 mg Tablet 5 mg PO DAILY Discharge Orders: Discharge ED (Routine); Ordered 08/11/22 Ordered By: Flo Alegria Referrals: Stefanie Somers MD [Primary Care Provider] - Discharge Diet: Usual diet Discharge Activity: Increase activity as tolerated Patient Instructions: Chest Pain (ED) Activity Restrictions/Additional Instructions: Thank you for visiting the emergency department. You were seen evaluated for chest pain. The exact cause of your symptoms is unclear though does not appear to need inpatient management at this time. I will message case management for follow-up with cardiology and they may order further cardiac testing. Please follow-up with your primary care provider. Return to the emergency department for uncontrolled symptoms or anything else that you are concerned about a feel needs emergency department evaluation. Coding Level of Care Code ED Operations Intelligence for Garrett Liang
--- NOTE | 2022-08-11 13:21 | XR_ITS ---
WS: [id number] Portable AP upright chest, 08/11/2022 Clinical Data: cp Comparison: Portable chest, 11/01/2021. Findings: No nodules, masses or effusions are seen. The heart is normal. The pulmonary vascularity is not increased. No pneumonia or pneumothorax is seen. There is a small generator overlying the left l ateral chest with a small wire leading into the left neck. XR/XR chest 1V portable [id number] Impression: Negative chest.
[2022-08-11 13:45] LABS: Basophils % 0.4 %; Eosinophils # 0.3 10^3/uL (0.0-0.8); Eosinophils % 3.5 %; Hematocrit 45.8 % (42.0-52.0); Hemoglobin 14.7 g/dL (11.7-16.6); Lymphocytes # 1.1 10^3/uL (0.8-4.8); Lymphocytes % 15.2 %; Mean Corpuscular HGB Conc 32.1 g/dL (30.0-36.0); Mean Corpuscular Hemoglobin 30.3 pg (28.0-34.0); Mean Corpuscular Volume 94.4 fl (80-94); Mean Platelet Volume 10.8 fL (7.4-10.4); Monocytes # 0.6 10^3/uL (0.2-0.9); Monocytes % 7.7 %; Neutrophils # 5.47 10^3/uL (1.8-7.7); Neutrophils % 72.8 %; Nucleated Red Blood Cells % 0 %; Platelet Count 165 10^3/cmm (130-400); Red Blood Count 4.85 10^6/uL (4.1-5.3); Red Cell Distribution Width 14.1 % (12.1-15.1); White Blood Count 7.5 10^3/uL (4.0-10.0)
[2022-08-11 14:07] LABS: Alanine Aminotransferase 45 U/L (0-41); Albumin Level 3.8 g/dL (3.5-5.2); Alkaline Phosphatase 100 U/L (40-130); Anion Gap 15.7 (5-19); Aspartate Amino Transferase 34 U/L (0-40); Blood Urea Nitrogen 14 mg/dL (8-23); Calcium 9.3 mg/dL (8.5-10.5); Carbon Dioxide 25 mmol/L (22-29); Chloride 106 mmol/L (98-107); Globulin 2.7 g/dL (1.3-4.6); Glomerular Filtration Rate 67.6 mL/min (90-130); Glucose 76 mg/dL (65-115); Osmolality Calculated 293 mOsm/kg (285-295); Potassium 4.7 mmol/L (3.5-5.1); Sodium 142 mmol/L (136-145); Total Bilirubin 0.3 mg/dL (0.15-1.2); Total Protein 6.5 g/dL (6.6-8.7)
[2022-08-11 14:08] LABS: Troponin(5th) Baseline 21 ng/L (0-15)
[2022-08-11 14:10] LABS: Add Urine Culture? No; Add Urine Microscopic? YES; Amorphous Sediment Urine 2+ /hpf; Bilirubin Urine Neg (Negative); Blood Urine Neg (Negative); Glucose Urine UA Norm (Normal); Ketones Urine Negative (Negative); Leukocyte Esterase Urine Trace (Negative); Nitrate Urine Negative (Negative); Protein Urine Neg (Negative); RBC Urine 0-4 /hpf (0-2); Specific Gravity, Urine 1.015 (1.005-1.030); Squamous Epithelial Cell Urine 0-4 /hpf (0-5); Sulfosalicylic Acid Urine Negative (Negative); Urine Appearance Hazy (CLEAR); Urine Color Yellow (Yellow); Urobilinogen Urine Norm (Negative); WBC Urine 0-4 /hpf (0-5); pH Urine 8 (5-7)
--- NOTE | 2022-08-11 15:21 | ECG_ITS ---
[facility] Test Date: 2022-08-11 Pat Name: Martin Estes Department: Room: Gender: Male Corporate Responsibility Officer: : 1960 Requested By: Flo Alegria Order Number: [id number] Irvin MD: Linda Silva M.D. Measurements Intervals [place] Rate: 63 P: 45 [place]: 180 QRS: 31 QRSD: 90 T: 59 QT: 423 QTc: 435 Interpretive Statements SINUS RHYTHM Compared to ECG 08/11/2022 12:01:29 No significant changes Electronically Signed On 08-12-2022 11:41:05 SLOT AMBASSADOR by Linda Silva M.D. [id number]
[2022-08-11 15:37] LABS: Adenovirus Not Detected (NOT DETECT); Chlamydia Pneumoniae Not Detected (NOT DETECT); Coronavirus 229E,HKU1,NL63,OC4 Not Detected (NOT DETECT); Human Metapneumovirus Not Detected (NOT DETECT); Human Rhinovirus/Enterovirus Not Detected (NOT DETECT); Influenza A Not Detected (NOT DETECT); Influenza A H1 Not Detected (NOT DETECT); Influenza A H1-2009 Not Detected (NOT DETECT); Influenza A H3 Not Detected (NOT DETECT); Influenza B Not Detected (NOT DETECT); Mycoplasma Pneumoniae Not Detected (NOT DETECT); Parainfluenza Virus Type 1 Not Detected (NOT DETECT); Parainfluenza Virus Type 2 Not Detected (NOT DETECT); Parainfluenza Virus Type 3 Not Detected (NOT DETECT); Parainfluenza Virus Type 4 Not Detected (NOT DETECT); Respiratory Syncytial Virus A Not Detected (NOT DETECT); Respiratory Syncytial Virus B Not Detected (NOT DETECT); SARS-COV-2 Not Detected (NOT DETECT)
[2022-08-11 16:36] LABS: Troponin 5 2HR 19.65 ng/L (0-15); Troponin 5 2HR Delta -1.35 ABS# (0-10)
--- NOTE | 2022-08-12 11:20 | DCPLANNER ---
Addendum entered by Jaydn Rizzo 09/23/22 11:00: patient had a follow up appointment scheduled with heart care - patient did attend appointment Addendum entered by Jadyn Rizzo 08/24/22 13:35: Patient has a follow up appointment scheduled for Wednesday, September 07, 2022 at 11:[address] Georges at [facility]. Clinic will call patient with appointment information. Original Note: annual campaign manager had message to schedule a follow up appointment for patient with cardiology. annual campaign manager sent patients information to the front office staff at [facility]. Patients information will be printed and reviewed. Clinic will call patient with appointment information.
== END 2022-08-11 17:02 | disposition home or self-care (01) ==
PROVIDERS: Emergency Provider Emergency Medicine; PCP Family Medicine
DX: R07.89 Other chest pain (principal); M79.603 Pain in arm, unspecified; R51.9 Headache, unspecified
CPT/HCPCS: 71045; 80053; 81001; 84484; 85025; 87635; 93005; 99285

== ENCOUNTER → 2022-09-07 10:53 | Outpatient (BNVA) | payer MEDICAID, SELFPAY | PROVIDERS: PCP Family Medicine; Visit Provider Internal Medicine Cardiovascular Disease | DX: G40.109 Localization-related (focal) (partial) symptomatic epilepsy and epileptic syndromes with simple partial seizures, not intractable, without status epilepticus (principal); E78.5 Hyperlipidemia, unspecified; F41.9 Anxiety disorder, unspecified; F31.9 Bipolar disorder, unspecified; N20.0 Calculus of kidney; J12.82 Pneumonia due to coronavirus disease 2019; N18.30 Chronic kidney disease, stage 3 unspecified | CPT/HCPCS: 99213 ==

== ENCOUNTER → 2022-10-05 10:06 | Outpatient (BNVA) | payer MEDICAID, SELFPAY | PROVIDERS: PCP Family Medicine; Visit Provider Specialist | DX: G40.109 Localization-related (focal) (partial) symptomatic epilepsy and epileptic syndromes with simple partial seizures, not intractable, without status epilepticus (principal); M54.17 Radiculopathy, lumbosacral region; G40.409 Other generalized epilepsy and epileptic syndromes, not intractable, without status epilepticus; Z96.82 Presence of neurostimulator; Z45.42 Encounter for adjustment and management of neurostimulator; Z86.16 Personal history of COVID-19 | CPT/HCPCS: 95971; 99214 ==

== ENCOUNTER → 2022-10-15 11:02 | Outpatient (BNVA) | payer MEDICAID, SELFPAY | PROVIDERS: PCP Family Medicine; Visit Provider Family Medicine | DX: R26.0 Ataxic gait (principal); N39.0 Urinary tract infection, site not specified | CPT/HCPCS: 81003 ==

== ENCOUNTER → 2022-11-18 10:47 | Outpatient (BNVA) | payer MEDICAID, SELFPAY | PROVIDERS: PCP Family Medicine; Visit Provider Nurse Practitioner Family | DX: R41.82 Altered mental status, unspecified (principal) | CPT/HCPCS: 81003; 87086 ==

== ENCOUNTER 2022-11-25 11:17 | Emergency (ER) | payer MEDICAID, SELFPAY ==
[2022-11-25 11:33] VITALS: BP 114/71; PULSE 78; RESP 18; TEMP 36.7; O2SAT 93
--- NOTE | 2022-11-25 12:03 | ECG_ITS ---
[facility] Test Date: 2022-11-25 Pat Name: Martin Estes Department: Room: Gender: Male Assistant Purchasing Manager: : 1960 Requested By: Mingo Farmer Order Number: [id number] Albaro MD: Juanita Marinelli M.D. Measurements Intervals [place] Rate: 72 P: 36 [place]: 173 QRS: -25 QRSD: 141 T: 82 QT: 430 QTc: 471 Interpretive Statements SINUS RHYTHM LEFT BUNDLE BRANCH BLOCK [120+ ms QRS DURATION, 80+ ms Q/S IN V1/V2, 85+ ms R IN I/aVL/V5/V6] Compared to ECG 08/11/2022 15:52:13 Left bundle-branch block now present Electronically Signed On 11-25-2022 22:21:30 COMPUTER SPECIALIST by Juanita Marinelli M.D. [id number]
--- NOTE | 2022-11-25 12:06 | ED_ITS ---
HPI - Weakness General: Chief complaint: Weakness Stated complaint: Weakness in legs, Confusion Time Seen by Provider: 11/25/22 12:02 Source: patient and family Mode of arrival: ambulatory History of Present Illness: 59-year-old male presents emergency room with family complaining of increased weakness primarily in his lower legs. Is also had some incontinence issues no fall or trauma recently. They are concerned he may had had a seizure although did not see any specific seizure-like activity. Stability to ambulate is decreased significantly over the last couple of weeks. He recently finished a course of Bactrim for UTI and does have a history of chronic kidney disease. He is able to provide history. He moves all extremities without difficulty is strength 5 of 5 and symmetrical facial movements. MD Complaint: generalized weakness Onset (ago): hour(s) Duration: constant Location: generalized Severity: moderate Relieving factors: none Exacerbating factors: none Associated symptoms: Denies chest pain, chills, confusion, melena, decreased appetite, diaphoresis, dysuria, easy bruising, fever(s), headache(s), myalgias, nausea, rash, short of breath, syncope or vomiting Review of Systems Const: Denies: fever(s), chills, fatigue, malaise or diaphoresis ENMT: Denies: throat pain, ear or mastoid pain, nasal discharge or nasal congestion Card: Denies: chest pain or syncope Resp: Denies: dyspnea, productive cough or non-productive cough GI: Denies: abdominal pain, nausea, vomiting or melena : Denies: dysuria, urinary frequency or urinary urgency Skin/Breast: Denies: rash or pruritus Neuro: Denies: headache(s) or confusion Nikolay/Lymph: Denies: easy bruising PFSH ED PFSH: Medical History Anxiety Bipolar 1 disorder Calcium renal calculus Chronic kidney disease Depression Dyslipidemia Elevated PSA Epilepsy GERD (gastroesophageal reflux disease) Hematochezia Hypernatremia 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 Good emptying proven post catheter removal. Urolithiasis Surgical History S/P ureteral stent placement Status post VNS (vagus nerve stimulator) placement 02/07/2020, 12/31/2014; Dr. Fadi Faria; Replacement of subcutaneous programmable pulse generator, with connection to vagal nerve stimulator electrode array. 05/26/2006 Dr. Fadi Faria. Implantation of vagal nerve stimulating electrode. Implantation of subcutaneous pulse generator for connection to cranial nerve stimulating electrode array. Family History Brother Cancer Other CAD (coronary artery disease) Family history unknown Social History Smoking and tobacco status: never smoked Alcohol intake: never Household members: friend(s) Marital status: Single Current occupational status: unemployed and disabled Physical Exam Const: GENERAL APPEARANCE: cooperative and comfortable ORIENTATION/CONSCIOUSNESS: Yes awake, Yes oriented to person, Yes oriented to place and Yes oriented to time HENMT: COMMON NORMALS: normocephalic, atraumatic and hearing grossly normal bilaterally HEAD & SCALP: normocephalic and atraumatic Resp: COMMON NORMALS: normal respiratory effort, No retractions, No use of accessory muscles and clear to auscultation bilaterally AUSCULTATION: clear t o auscultation bilaterally Cardio: COMMON NORMALS: regular rate, regular rhythm and No murmurs present (Cardio) RATE: regular rate RHYTHM: regular rhythm GI: COMMON NORMALS: Soft to palpation and No hepatosplenomegaly present AUSCULTATION: Yes normoactive bowel sounds PALPATION: Yes Soft to palpation, No Tenderness to palpation present (GI), No Guarding due to palpation present (GI) and Yes No hepatosplenomegaly present Extremity: COMMON NORMALS: normal to inspection, capillary refill normal, no clubbing, cyanosis or edema, no calf tenderness and no pedal edema Neuro: SENSORIUM/ORIENTATION: Yes oriented to person, Yes oriented to place and Yes oriented to time OTHER: Normal facial symmetry no focal neurologic deficits in the extremities strength 5 of 5 in all extremities. Skin: COMMON NORMALS: no rashes or lesions noted GENERAL SKIN EXAM: no rashes or lesions noted Course Vital Signs: Vital signs: Vital Signs Temperature 98.0 F 11/25/22 11:33 Pulse Rate 68 11/25/22 14:57 Respiratory Rate 16 11/25/22 14:57 Blood Pressure 129/80 11/25/22 14:57 Pulse Oximetry 97 11/25/22 14:57 Oxygen Delivery Me thod 11/25/22 11:33 MDM - Weakness Medical Decision Making PT was able to ambulate the patient he is able to stand turn assist. No evidence of seizures. Neurologically is intact there is no evidence of stroke. We will discharge patient home he does have an incidental finding of persistent bladder infection as well as a mild NICK. Recheck with his primary care within the next week. Medical Records I reviewed the patient's medical records. Lab Data I reviewed the patient's lab results. 11/25/22 12:11 11/25/22 12:11 Radiology Impressions Chest X-Ray 11/25/22 12:59 IMPRESSION: 1. Negative chest-no change. Laboratory Results WBC 8.2 10^3/uL (4.0-10.0) 11/25/22 12:11 RBC 4.85 10^6/uL (4.1-5.3) 11/25/22 12:11 Hgb 14.6 g/dL (11.7-16.6) 11/25/22 12:11 Hct 45.3 % (42.0-52.0) 11/25/22 12:11 MCV 93.4 fl (80-94) 11/25/22 12:11 MCH 30.1 pg (28.0-34.0) 11/25/22 12:11 MCHC 32.2 g/dL (30.0-36.0) 11/25/22 12:11 RDW 14.5 % (12.1-15.1) 11/25/22 12:11 Plt Count 166 10^3/cmm (130-400) 11/25/22 12:11 MPV 10.6 fL (7.4-10.4) H 11/25/22 12:11 Neut % (Auto) 81.2 % 11/25/22 12:11 Lymph % (Auto) 9.6 % 11/25/22 12:11 [place] % (Auto) 7.4 % 11/25/22 12:11 Eos % (Auto) 0.9 % 11/25/22 12:11 Baso % (Auto) 0.5 % 11/25/22 12:11 Neut # (Auto) 6.69 10^3/uL (1.8-7.7) 11/25/22 12:11 Lymph # (Auto) 0.8 10^3/uL (0.8-4.8) 11/25/22 12:11 [place] # (Auto) 0.6 10^3/uL (0.2-0.9) 11/25/22 12:11 Eos # (Auto) 0.1 10^3/uL (0.0-0.8) 11/25/22 12:11 Baso # (Auto) 0.0 10^3/uL (0.0-0.1) 11/25/22 12:11 Nucleated RBC % (auto) 0 % 11/25/22 12:11 Nucleated RBCs # 0.0 /100WBC 11/25/22 12:11 Sodium 139 mmol/L (136-145) 11/25/22 12:11 Potassium 4.9 mmol/L (3.5-5.1) 11/25/22 12:11 Chloride 105 mmol/L (98-107) 11/25/22 12:11 Carbon Dioxide 24 mmol/L (22-29) 11/25/22 12:11 Anion Gap 14.9 (5-19) 11/25/22 12:11 BUN 21 mg/dL (8-23) 11/25/22 12:11 Creatinine 1.5 mg/dL (0.7-1.2) H 11/25/22 12:11 GFR Calculation 47.3 mL/min (90-130) L 11/25/22 12:11 Glucose 83 mg/dL (65-115) 11/25/22 12:11 Calculated Osmolality 290 mOsm/kg (285-295) 11/25/22 12:11 Calcium 9.3 mg/dL (8.5-10.5) 11/25/22 12:11 Total Bilirubin 0.3 mg/dL (0.15-1.2) 11/25/22 12:11 AST 45 U/L (0-40) H 11/25/22 12:11 ALT 64 U/L (0-41) H 11/25/22 12:11 Alkaline Phosphatase 101 U/L (40-130) 11/25/22 12:11 Creatine Kinase 67 U/L (39-308) 11/25/22 12:11 Total Protein 6.4 g/dL (6.6-8.7) L 11/25/22 12:11 Albumin 4.0 g/dL (3.5-5.2) 11/25/22 12:11 Globulin 2.4 g/dL (1.3-4.6) 11/25/22 12:11 Urine Color Dark yellow (Yellow) 11/25/22 14:03 Urine Appearance Clear (CLEAR) 11/25/22 14:03 Urine pH 7 (5-7) 11/25/22 14:03 Ur Specific [place] 1.010 (1.005-1.030) 11/25/22 14:03 Urine Protein Neg (Negative) 11/25/22 14:03 Urine Glucose (UA) Norm (Normal) 11/25/22 14:03 Urine Ketones Negative (Negative) 11/25/22 14:03 Urine Blood 2+ (Negative) H 11/25/22 14:03 Urine Nitrate Negative (Negative) 11/25/22 14:03 Urine Bilirubin Neg (Negative) 11/25/22 14:03 Urine Urobilinogen 1 mg/dL (Negative) H 11/25/22 14:03 Ur Leukocyte Esterase 2+ (Negative) H 11/25/22 14:03 Urine RBC 5-10 /hpf (0-2) H 11/25/22 14:03 Urine WBC 10-15 /hpf (0-5) H 11/25/22 14:03 Ur Squamous Epith Cells Rare /hpf (0-5) 11/25/22 14:03 Calcium Oxalate Crystal 0-4 /hpf H 11/25/22 14:03 Amorphous Sediment Not Reportable 11/25/22 14:03 Urine Bacteria Trace /hpf (NONE) 11/25/22 14:03 Hyaline Casts 0-4 /lpf H 11/25/22 14:03 Discharge Plan Discharge Patient Disposition: Home Clinical Impression: Weakness, Cystitis Condition: Stable Prescriptions: New Macrobid 100 mg capsule 100 mg PO BID 7 Days Qty: 14 0RF Rx Instructions: must administer with a meal/food No Action nitroglycerin 0.4 mg tablet, sublingual 0.4 mg SUBLINGUAL Q5M PRN (Reason: Chest Pain) acetaminophen 500 mg tablet 1,000 mg PO QID PRN (Reason: PAIN) senna 8.6 mg capsule 17.2 mg PO DAILY cenobamate 50 mg (14)- 100 mg (14) tablets,dose pack See Rx Instructions PO PER PKG DIR Qty: 28 0RF Rx Instructions: PO PER PKG DIR cenobamate 150 mg (14)- 200 mg (14) tablets,dose pack See Rx Instructions PO PER PKG DIR Qty: 28 0RF Rx Instructions: PO PER PKG DIR cenobamate 12.5 mg (14)- 25 mg (14) tablets,dose pack See Rx Instructions PO PER PKG DIR Qty: 28 0RF Rx Instructions: PO PER PKG DIR lorazepam 2 mg tablet 2 mg PO DAILY Qty: 30 2RF fluoxetine 40 mg capsule 40 mg PO BID@799,1999 Qty: 180 3RF lacosamide [Vimpat] 150 mg tablet 150 mg PO BID Qty: 60 5RF pregabalin [Lyrica] 300 mg capsule 300 mg PO BID@799,1999 Qty: 60 5RF tamsulosin 0.4 mg capsule 0.4 mg PO BID@799,1999 simvastatin 20 mg tablet 20 mg PO BEDTIME polyethylene glycol 3350 [Miralax] 17 gram/dose powder 17 g PO DAILY PRN (Reason: Constipation) famotidine 20 mg Tablet 20 mg PO DAILY PRN (Reason: Indigestion) albuterol sulfate [Ventolin HFA] 90 mcg/actuation Hfa Aerosol Inhaler 2 puff INHALATION Q6H PRN (Reason: Shortness Of Breath Or Wheezing) A,D-aloe whzf-zoxtujaymy-q.pet Ointment 1 ea TOPICAL TID PRN (Reason: Rash) zonisamide 100 mg capsule 400 mg PO BEDTIME risperidone [Risperdal] 1 mg tablet 1 mg PO BEDTIME hydroxyzine pamoate 25 mg capsule 25 mg PO Q6H PRN (Reason: Itching/ANXIETY) finasteride 5 mg Tablet 5 mg PO DAILY Discharge Orders: Discharge ED (Routine); Ordered 11/25/22 Ordered By: Mingo Hansen Referrals: Stefanie Somers MD [Primary Care Provider] - Patient Instructions: Opioid Safety, Pain Management Activity Restrictions/Additional Instructions: You were seen today for weakness. You were able to walk with assistance with physical therapist recommend you talk to your primary care doctor about going to physical therapy to improve your strength and gait. He also were found to have a minor increase in your kidney function likely due from the recent use of the antibiotic Bactrim. You still have a residual bladder infection. Your urine will be cultured and we will start you on a different antibiotic Macrobid 1 twice a day for a week. Coding Level of Care Code ED Economics Lecturer for Garrett Liang
[2022-11-25] MEDS: sodium chloride 0.9% 1,000 ML 999 ML IV (12:13)
[2022-11-25 12:19] VITALS: BP 121/72; PULSE 76; RESP 16; O2SAT 96
[2022-11-25 12:35] LABS: Basophils % 0.5 %; Eosinophils # 0.1 10^3/uL (0.0-0.8); Eosinophils % 0.9 %; Hematocrit 45.3 % (42.0-52.0); Hemoglobin 14.6 g/dL (11.7-16.6); Lymphocytes # 0.8 10^3/uL (0.8-4.8); Lymphocytes % 9.6 %; Mean Corpuscular HGB Conc 32.2 g/dL (30.0-36.0); Mean Corpuscular Hemoglobin 30.1 pg (28.0-34.0); Mean Corpuscular Volume 93.4 fl (80-94); Mean Platelet Volume 10.6 fL (7.4-10.4); Monocytes # 0.6 10^3/uL (0.2-0.9); Monocytes % 7.4 %; Neutrophils # 6.69 10^3/uL (1.8-7.7); Neutrophils % 81.2 %; Nucleated Red Blood Cells % 0 %; Platelet Count 166 10^3/cmm (130-400); Red Blood Count 4.85 10^6/uL (4.1-5.3); Red Cell Distribution Width 14.5 % (12.1-15.1); White Blood Count 8.2 10^3/uL (4.0-10.0)
[2022-11-25 12:58] LABS: Alanine Aminotransferase 64 U/L (0-41); Alkaline Phosphatase 101 U/L (40-130); Anion Gap 14.9 (5-19); Aspartate Amino Transferase 45 U/L (0-40); Blood Urea Nitrogen 21 mg/dL (8-23); Calcium 9.3 mg/dL (8.5-10.5); Carbon Dioxide 24 mmol/L (22-29); Chloride 105 mmol/L (98-107); Creatine Phosphokinase 67 U/L (39-308); Globulin 2.4 g/dL (1.3-4.6); Glomerular Filtration Rate 47.3 mL/min (90-130); Glucose 83 mg/dL (65-115); Osmolality Calculated 290 mOsm/kg (285-295); Potassium 4.9 mmol/L (3.5-5.1); Sodium 139 mmol/L (136-145); Total Bilirubin 0.3 mg/dL (0.15-1.2); Total Protein 6.4 g/dL (6.6-8.7)
--- NOTE | 2022-11-25 12:59 | XR_ITS ---
WS: [id number] Exam: XR chest 1V portable [id number] Date/Time of Exam: 11/25/2022 1:03 PM Reason For Exam: dyspnea/cough Comparison 08/11/2022. The lungs are clear and fully inflated. Normal cardiomediastinal silhouette and regional bony element s. A neurostimulator overlies left chest with the lead extending cephalad. No pleural effusion. XR/XR chest 1V portable [id number] IMPRESSION: 1. Negative chest-no change.
[2022-11-25 13:00] VITALS: BP 121/72; PULSE 67; O2SAT 96
[2022-11-25 14:29] LABS: Add Urine Microscopic? YES; Bilirubin Urine Neg (Negative); Blood Urine 2+ (Negative); Glucose Urine UA Norm (Normal); Ketones Urine Negative (Negative); Leukocyte Esterase Urine 2+ (Negative); Nitrate Urine Negative (Negative); Protein Urine Neg (Negative); Urine Appearance Clear (CLEAR); Urine Color Dark Yellow (Yellow); Urobilinogen Urine 1 mg/dL (Negative); pH Urine 7 (5-7)
[2022-11-25 14:31] LABS: Squamous Epithelial Cell Urine RARE /hpf (0-5)
[2022-11-25 14:32] LABS: Add Urine Culture? Yes; Bacteria Urine TRACE /hpf; Calcium Oxalate Crystals Urine 0-4 /hpf; Hyaline Casts Urine 0-4 /lpf
[2022-11-25 14:57] VITALS: BP 129/80; PULSE 68; RESP 16; O2SAT 97
== END 2022-11-25 14:58 | disposition home or self-care (01) ==
PROVIDERS: Emergency Provider Family Medicine; PCP Family Medicine
DX: R53.1 Weakness (principal); N30.90 Cystitis, unspecified without hematuria; N18.9 Chronic kidney disease, unspecified; E78.5 Hyperlipidemia, unspecified
CPT/HCPCS: 36415; 51798; 71045; 80053; 81001; 82550; 85025; 87086; 93005; 97116; 97161; 99285; J7030

== ENCOUNTER → 2022-12-02 14:00 | Outpatient (BNVA) | payer MEDICAID, SELFPAY | PROVIDERS: PCP Family Medicine; Visit Provider Family Medicine | DX: N39.0 Urinary tract infection, site not specified (principal) | CPT/HCPCS: 81003 ==

== ENCOUNTER → 2022-12-09 15:00 | Outpatient (BNVA) | payer MEDICAID, SELFPAY | PROVIDERS: PCP Family Medicine; Visit Provider Family Medicine | DX: N39.0 Urinary tract infection, site not specified (principal) | CPT/HCPCS: 81003 ==

== ENCOUNTER → 2023-01-11 10:48 | Outpatient (BNVA) | payer MEDICAID, SELFPAY | PROVIDERS: PCP Family Medicine; Visit Provider Podiatrist Foot & Ankle Surgery | DX: I73.9 Peripheral vascular disease, unspecified (principal); L60.0 Ingrowing nail; B35.1 Tinea unguium | CPT/HCPCS: 11721; 99203 ==

== ENCOUNTER → 2023-01-25 11:03 | Outpatient (BNVA) | payer MEDICAID, SELFPAY | PROVIDERS: PCP Family Medicine; Visit Provider Specialist | DX: G40.109 Localization-related (focal) (partial) symptomatic epilepsy and epileptic syndromes with simple partial seizures, not intractable, without status epilepticus (principal); Z45.42 Encounter for adjustment and management of neurostimulator; R26.0 Ataxic gait; G92.8 Other toxic encephalopathy; G40.409 Other generalized epilepsy and epileptic syndromes, not intractable, without status epilepticus; Z96.82 Presence of neurostimulator; T42.6X5A Adverse effect of other antiepileptic and sedative-hypnotic drugs, initial encounter; Z86.16 Personal history of COVID-19 | CPT/HCPCS: 95971; 99214 ==

== ENCOUNTER → 2023-03-16 11:07 | Outpatient (BNVA) | payer MEDICAID, SELFPAY | PROVIDERS: PCP Family Medicine; Visit Provider Podiatrist Foot & Ankle Surgery | DX: I73.9 Peripheral vascular disease, unspecified (principal); B35.1 Tinea unguium; L60.0 Ingrowing nail | CPT/HCPCS: 11721 ==

== ENCOUNTER → 2023-03-21 10:30 | Outpatient (BNVA) | payer MEDICAID, SELFPAY | PROVIDERS: PCP Family Medicine; Visit Provider Family Medicine | DX: Z00.00 Encounter for general adult medical examination without abnormal findings (principal); E78.5 Hyperlipidemia, unspecified; Z12.5 Encounter for screening for malignant neoplasm of prostate | CPT/HCPCS: 80053; 80061; 84443; 85025; G0103 ==

== ENCOUNTER 2023-04-06 10:52 | Outpatient (CLI) | payer MEDICAID, SELFPAY ==
--- NOTE | 2023-04-06 11:20 | XR_ITS ---
WS: [id number] XR abdomen min 2V [id number] REASON FOR EXAM: HX OF NEPHROLITHIASIS FINDINGS: 10 x 5 mm calculus overlying the lower left kidney. This calculus is not identifiable on an examination from 03/09/2022. 2 calculi are identified in this l ocation on previous examination of 09/09/2022. No other significant finding. XR/XR abdomen min 2V [id number] IMPRESSION: Left renal calculus as above.
[2023-04-06 12:28] LABS: Prostate Specific Antigen 0.881 ng/mL (0-4)
== END 2023-04-06 10:53 | disposition home or self-care (01) ==
LOC: RAD 10:54
PROVIDERS: PCP Family Medicine; Visit Provider Urology
DX: Z87.442 Personal history of urinary calculi (principal); Z87.898 Personal history of other specified conditions
CPT/HCPCS: 36415; 74019; 84153

== ENCOUNTER → 2023-04-27 08:37 | Outpatient (BNVA) | payer MEDICAID, SELFPAY | PROVIDERS: PCP Family Medicine; Visit Provider Specialist | DX: G40.109 Localization-related (focal) (partial) symptomatic epilepsy and epileptic syndromes with simple partial seizures, not intractable, without status epilepticus; R26.0 Ataxic gait; G92.8 Other toxic encephalopathy; Z96.82 Presence of neurostimulator; T50.995A Adverse effect of other drugs, medicaments and biological substances, initial encounter; Z86.16 Personal history of COVID-19 | CPT/HCPCS: 95970; 99214 ==

== ENCOUNTER → 2023-05-30 10:56 | Outpatient (BNVA) | payer MEDICAID, SELFPAY | PROVIDERS: PCP Family Medicine; Visit Provider Podiatrist Foot & Ankle Surgery | DX: L60.0 Ingrowing nail (principal); B35.1 Tinea unguium; I73.9 Peripheral vascular disease, unspecified | CPT/HCPCS: 11721 ==

== ENCOUNTER → 2023-08-02 14:38 | Outpatient (BNVA) | payer MEDICAID, SELFPAY | PROVIDERS: PCP Family Medicine; Visit Provider Family Medicine | DX: N39.0 Urinary tract infection, site not specified (principal) | CPT/HCPCS: 81003 ==

== ENCOUNTER → 2023-08-08 10:57 | Outpatient (BNVA) | payer MEDICAID, SELFPAY | PROVIDERS: PCP Family Medicine; Visit Provider Podiatrist Foot & Ankle Surgery | DX: B35.1 Tinea unguium (principal); I73.9 Peripheral vascular disease, unspecified | CPT/HCPCS: 11721 ==

== ENCOUNTER → 2023-08-10 10:59 | Outpatient (BNVA) | payer MEDICAID, SELFPAY | PROVIDERS: PCP Family Medicine; Visit Provider Family Medicine | DX: N39.0 Urinary tract infection, site not specified (principal) | CPT/HCPCS: 87086 ==

== ENCOUNTER → 2023-08-31 09:30 | Outpatient (BNVA) | payer MEDICAID, SELFPAY | PROVIDERS: PCP Family Medicine; Visit Provider Specialist | DX: Z45.42 Encounter for adjustment and management of neurostimulator (principal); G40.109 Localization-related (focal) (partial) symptomatic epilepsy and epileptic syndromes with simple partial seizures, not intractable, without status epilepticus | CPT/HCPCS: 95970; 99215 ==

== ENCOUNTER → 2023-09-12 11:00 | Outpatient (BNVA) | payer MEDICAID, SELFPAY | PROVIDERS: PCP Family Medicine; Visit Provider Internal Medicine Cardiovascular Disease | DX: R06.02 Shortness of breath (principal) | CPT/HCPCS: 36415; 80048; 83880; 99214 ==

== ENCOUNTER 2023-09-20 11:35 | Outpatient (CLI) | payer MEDICAID, SELFPAY ==
[2023-09-20 12:24] LABS: Basophils % 0.4 %; Eosinophils # 0.3 10^3/uL (0.0-0.8); Eosinophils % 4.1 %; Hematocrit 47.1 % (37-53); Lymphocytes # 1.3 10^3/uL (0.8-4.8); Lymphocytes % 17.4 %; Mean Corpuscular HGB Conc 31.8 g/dL (30-55); Mean Corpuscular Hemoglobin 30.1 pg (27-33); Mean Corpuscular Volume 94.4 fl (82-101); Mean Platelet Volume 10.6 fL (7.4-10.4); Monocytes # 0.6 10^3/uL (0.2-0.9); Monocytes % 8.4 %; Neutrophils % 69.2 %; Nucleated Red Blood Cells % 0 %; Platelet Count 174 10^3/cmm (157-399); Red Blood Count 4.99 10^6/uL (3.85-5.65); Red Cell Distribution Width 14.3 % (12.1-15.1); White Blood Count 7.65 10^3/uL (3.29-11.43)
[2023-09-20 12:38] LABS: Anion Gap 11.2 (5-19); Blood Urea Nitrogen 16 mg/dL (8-23); Carbon Dioxide 27 mmol/L (22-29); Chloride 110 mmol/L (98-107); Glomerular Filtration Rate 55.6 mL/min (90-130); Glucose 75 mg/dL (65-115); Osmolality Calculated 298 mOsm/kg (285-295); Potassium 4.2 mmol/L (3.5-5.1); Sodium 144 mmol/L (136-145)
== END 2023-09-20 11:36 | disposition home or self-care (01) ==
LOC: LAB 11:36
PROVIDERS: PCP Family Medicine; Visit Provider Urology
DX: Z01.818 Encounter for other preprocedural examination (principal)
CPT/HCPCS: 36415; 80048; 85025; 87077; 87086; 87186

== ENCOUNTER → 2023-09-21 08:22 | Outpatient (BNVA) | payer MEDICAID, SELFPAY | PROVIDERS: PCP Family Medicine; Referring Provider Urology; Visit Provider Internal Medicine Cardiovascular Disease | DX: Z01.818 Encounter for other preprocedural examination (principal) | CPT/HCPCS: 93005 ==

== ENCOUNTER → 2023-10-31 10:54 | Outpatient (BNVA) | payer MEDICAID, SELFPAY | PROVIDERS: PCP Family Medicine; Visit Provider Podiatrist Foot & Ankle Surgery | DX: B35.1 Tinea unguium (principal); I73.9 Peripheral vascular disease, unspecified | CPT/HCPCS: 11721 ==

== ENCOUNTER → 2023-11-25 15:07 | Outpatient (BNVA) | payer MEDICAID, SELFPAY | PROVIDERS: PCP Family Medicine; Referring Provider Family Medicine; Visit Provider Specialist | DX: Z45.42 Encounter for adjustment and management of neurostimulator (principal); G40.109 Localization-related (focal) (partial) symptomatic epilepsy and epileptic syndromes with simple partial seizures, not intractable, without status epilepticus; Z96.89 Presence of other specified functional implants | CPT/HCPCS: 95970; 99214 ==

== ENCOUNTER → 2023-12-19 14:48 | Outpatient (BNVA) | payer MEDICAID, SELFPAY | PROVIDERS: PCP Family Medicine; Referring Provider Specialist; Visit Provider Thoracic Surgery (Cardiothoracic Vascular Surgery) | DX: Z45.42 Encounter for adjustment and management of neurostimulator (principal) | CPT/HCPCS: 99203 ==

== ENCOUNTER 2024-01-02 05:28 | Day surgery (SDC) | payer MEDICAID, SELFPAY ==
[2024-01-02] VITALS (7 sets, daily range): BP systolic 114–153; BP diastolic 62–91; PULSE 54–72; RESP 15–20; TEMP 36.2–36.5; O2SAT 93–95; BMI 35.5
--- NOTE | 2024-01-02 06:29 | W.PM.OPSUD ---
Surgery/Procedure H&P Update DATE OF PROCEDURE: January 02, 2024 DATE H&P PERFORMED: 12/19/23 H&P UPDATE INFORMATION: I have reviewed H&P completed within last 30 days, I have examined patient prior to procedure and No changes to prior documentation CHANGES TO PREVIOUS DOCUMENTATION: Informed consent was obtained by Mr. Estes's brother who has power of video software engineer. Mr. Estes states he understands the reason for vagal nerve stimulator generator exchange and wishes to proceed. PREOP DIAGNOSIS: Vagal nerve stimulator generator end of service PLANNED PROCEDURE: Operation Date: 01/02/24 07:00 Proposed Procedures p VNS Generator Exchange(Not Applicable) - Crispin Tovar MD
[2024-01-02 06:35] LABS: Add Urine Microscopic? YES; Amorphous Sediment Urine TRACE /hpf; Bilirubin Urine Neg (Negative); Blood Urine 3+ (Negative); Glucose Urine UA Norm (Normal); Ketones Urine Negative (Negative); Leukocyte Esterase Urine Trace (Negative); Nitrate Urine Negative (Negative); Protein Urine Neg (Negative); RBC Urine >100 /hpf (0-2); Squamous Epithelial Cell Urine 0-4 /hpf (0-5); Urine Appearance Cloudy (CLEAR); Urine Color Yellow (Yellow); Urobilinogen Urine Neg (Negative); pH Urine 7 (5-7)
[2024-01-02 06:36] LABS: Add Urine Culture? Yes
[2024-01-02] MEDS: sodium chloride 0.9% 1,000 ML 30 ML IV (06:43)
[2024-01-02 06:51] LABS: Basophils % 0.2 %; Eosinophils # 0.3 10^3/uL (0.0-0.8); Eosinophils % 3.3 %; Hematocrit 46.1 % (37-53); Lymphocytes # 0.9 10^3/uL (0.8-4.8); Lymphocytes % 10.6 %; Mean Corpuscular HGB Conc 32.5 g/dL (30-55); Mean Corpuscular Hemoglobin 30.1 pg (27-33); Mean Corpuscular Volume 92.6 fl (82-101); Monocytes # 0.5 10^3/uL (0.2-0.9); Monocytes % 6.2 %; Neutrophils # 6.41 10^3/uL (1.8-7.7); Neutrophils % 79.2 %; Nucleated Red Blood Cells % 0 %; Platelet Count 157 10^3/cmm (157-399); Red Blood Count 4.98 10^6/uL (3.85-5.65); Red Cell Distribution Width 14.6 % (12.1-15.1)
--- NOTE | 2024-01-02 06:57 | P.ANESASSM_ITS ---
Pre-Anesthetic Assessment Height/Weight: Height 1.68 m Weight 99.79 kg Temp Pulse Resp BP Pulse Ox O2 Del Method 97.7 F 72 20 H 153/90 94 Room Air 01/02/24 06:23 01/02/24 06:23 01/02/24 06:23 01/02/24 06:23 01/02/24 06:23 01/02/24 06:23 Preop Diagnosis: Vagal nerve stimulator generator end of service Operation Date: 01/02/24 07:00 Proposed Procedures p VNS Generator Exchange(Not Applicable) - Crispin Tovar MD Familial anesthetic complications: None Was Beta Gamaliel taken within 24 hours: N/A Was Clonidine taken within 24 hours: N/A Last intake: Intake Last Liquid Date 01/01/24 Last Liquid Time 18:00 Last Solid Date 01/01/24 Last Solid Time 18:00 Social No alcohol and No tobacco Exam alert, oriented x 3, clear to auscultation bilaterally and regular rate & rhythm Airway Mallampati: Class II Dentition: other (none) CV/HEM Hypertension LBBB Chronic Renal Insufficiency GI Gastroesophageal Reflux Disease Metabolic Hyperlipidemia Neuropsych epilepsy Anesthetic Plan ASA status: 3 Anesthesia: MAC Risk of > 500 ml blood loss (7ml/kg in children): No Medications/Allergies Home Medications Medication Instructions Recorded Confirmed Last Taken Type nitroglycerin 0.4 mg sublingual 0.4 mg sublingual Q5M PRN Chest 10/10/19 12/30/23 Unknown History tablet Pain acetaminophen 500 mg tablet 1,000 mg PO QID PRN PAIN 09/23/20 12/30/23 12/30/23 History polyethylene glycol 3350 17 17 g PO DAILY PRN Constipation 04/25/21 12/30/23 12/30/23 History gram/dose oral powder (Miralax) hydroxyzine pamoate 25 mg capsule 25 mg PO Q6H PRN Itching/ANXIETY 08/11/22 12/30/23 12/30/23 History sennosides 8.6 mg-docusate sodium See Rx Instructions .Route 03/09/23 12/30/23 01/01/24 Rx 50 mg tablet (Senexon-S) .COMPLEX #56 ea simvastatin 20 mg tablet See Rx Instructions .Route 03/09/23 12/30/23 01/01/24 Rx .COMPLEX #28 ea albuterol sulfate 90 mcg/actuation See Rx Instructions .Route 04/01/23 12/30/23 12/30/23 Rx aerosol inhaler (Ventolin HFA) .COMPLEX #18 grams famotidine 20 mg tablet See Rx Instructions .Route 04/01/23 12/30/23 12/30/23 Rx .COMPLEX #30 ea oxybutynin chloride 15 mg 15 mg PO DAILY 11/22/23 12/30/23 01/01/24 History tablet,extended release 24 hr lacosamide 100 mg tablet 100 mg PO BID #60 tabs 11/25/23 12/30/23 01/01/24 Rx lorazepam 2 mg tablet 2 mg PO DAILY #30 tabs 11/25/23 12/30/23 01/01/24 Rx pregabalin 300 mg capsule (Lyrica) 300 mg PO BID@0800,2000 #60 caps 11/25/23 12/30/23 01/01/24 Rx zonisamide 100 mg capsule See Rx Instructions .Route 11/25/23 12/30/23 01/01/24 Rx .COMPLEX #120 caps fluoxetine 40 mg capsule See Rx Instructions .Route 12/19/23 12/30/23 01/01/24 Rx .COMPLEX #60 caps methenamine hippurate 1 gram tablet 1 g PO BID 12/19/23 12/30/23 01/01/24 History risperidone 1 mg tablet See Rx Instructions .Route 12/19/23 12/30/23 01/01/24 Rx .COMPLEX #30 tabs promethazine-DM 6.25 mg-15 mg/5 mL 5 ml PO Q6H PRN Cough 12/30/23 12/30/23 Unknown History oral syrup Allergies Allergy/AdvReac Type Severity Reaction Status Date / Time No Known Allergies Allergy Verified 12/19/23 14:57 Current Medications Generic Name Dose Route Start Last Admin Trade Name Freq PRN Reason Stop Dose Admin Sodium Chloride 1,000 mls @ 30 mls/hr 01/02/24 06:00 01/02/24 06:43 Sodium Chloride 0.9% IV 01/03/24 05:59 30 mls/hr .Q24H SUNNY Administration PFSH Anesthesia Medical History Elevated PSA Urolithiasis Urinary retention Transient urinary retention 2020. Good emptying proven post catheter removal. Calcium renal calculus Partial epilepsy secondarily generalized GERD (gastroesophageal reflux disease) Depression Epilepsy Bipolar 1 disorder Hypernatremia Chronic kidney disease Hematochezia Anxiety Dyslipidemia Male circumcision Surgical History S/P ureteral stent placement Status post VNS (vagus nerve stimulator) placement 02/07/2020, 12/31/2014; Dr. Fadi Faria; Replacement of subcutaneous programmable pulse generator, with connection to vagal nerve stimulator electrode array. 05/26/2006 Dr. Fadi Faria. Implantation of vagal nerve stimulating electrode. Implantation of subcutaneous pulse generator for connection to cranial nerve stimulating electrode array. Family History Brother Cancer Other CAD (coronary artery disease) Family history unknown Social History Smoking and tobacco/nicotine status: never used tobacco/nicotine Alcohol intake: never Substance/Drug Use: never Household members: friend(s) Marital status: Single Current occupational status: unemployed and disabled Data Anesthesia 01/02/24 06:35 01/02/24 06:35 Short CBC 01/02/24 Range/Units 06:35 WBC 8.10 (3.29-11.43) 10^3/uL Hgb 15.00 (11.27-16.99) g/dL Hct 46.1 (37-53) % MCV 92.6 (82-101) fl Plt Count 157 (157-399) 10^3/cmm Neut % (Auto) 79.2 % Neut # (Auto) 6.41 (1.8-7.7) 10^3/uL Urine 01/02/24 Range/Units 06:08 Urine Color Yellow (Yellow) Urine Appearance Cloudy A (CLEAR) Urine pH 7 (5-7) Ur Specific [place] 1.010 (1.005-1.030) Urine Protein Neg (Negative) Urine Glucose (UA) Norm (Normal) Urine Ketones Negative (Negative) Urine Nitrate Negative (Negative) Urine Bilirubin Neg (Negative) Ur Leukocyte Esterase Trace H (Negative) Urine RBC >100 H (0-2) /hpf Urine WBC 5-10 H (0-5) /hpf Cardiac Studies: 2 Echocardiogram Ultrasound 10/31/19 Sestamibi Stress Test (Cardiology) 10/31 Cardiac Event Monitor 09/30/20
[2024-01-02] MEDS: ceFAZolin 2,000 MG in sodium chloride 0.9% (plus) 50 ML 100 MG IV (07:01)
[2024-01-02 07:03] LABS: Blood Urea Nitrogen 15 mg/dL (8-23); Calcium 8.8 mg/dL (8.5-10.5); Carbon Dioxide 21 mmol/L (22-29); Chloride 111 mmol/L (98-107); Creatinine Clr Calc Pharmacy 91.7114; Glucose 100 mg/dL (65-115); Osmolality Calculated 295 mOsm/kg (285-295); Sodium 142 mmol/L (136-145)
[2024-01-02] MEDS: lidocaine 1% INJ 10 mL (per mL) 9 ML XX (07:36)
[2024-01-02] MEDS: ceFAZolin 1,000 mg SDV 1000 MG IRRIGATION (07:37)
--- NOTE | 2024-01-02 08:04 | P.OP_ITS ---
Operative Report Date of procedure: January 02, 2024 Pre-op diagnosis: Vagal nerve stimulator generator end of service Post-op diagnosis: same Procedure done: Vagal nerve stimulator generator exchange Specimens removed/disposition: Vagal nerve stimulator generator Pathology: none sent Surgeon: Crsipin Tovar MD Anesthesia: MAC and Local (9 cc 1% lidocaine) Complications: None Condition: stable Disposition: same day Brief History: Mr. Estes is a 63-year-old gentleman with history of status epilepticus with focal onset. He had a prior vagal nerve stimulator generator originally placed May 2006 with subsequent generator exchanges in December 2014 and February 2020. Current generator is now at end of service and generator replacement has been requested by Dr. Dickson. He was initially evaluated in our clinic on December 18. Details and risk of the procedure were carefully discussed. Consent has been signed by his brother who has power of nutrition faculty member. Procedure: Mr. Estes was taken to the operating room theater and Positioned on the OR table over protective padding. She underwent IV conscious sedation with anesthesia monitoring. Her entire left chest was sterilely prepped and draped. Appropriate timeout was completed and confirmed. 1% lidocaine was infiltrated at the area of the prior incision for device implantation. #15 scalpel blade was utilized to incise the skin down to the subcutaneous tissues. Careful dissection was then performed utilizing scalpel, Metzenbaum scissors, and cautery if required to reach the pseudocapsule. Care was taken to identify the course of the VNS wire. The pseudocapsule was then opened utilizing #15 scalpel blade exposing the generator which was subsequently delivered. Antibiotic soaked gauze was placed in the wound. Setscrew was released to remove the VNS wire and the old generator was removed from the field. The new generator was then connected to the VNS wire and the setscrew was secured with good contact confirmed with axial traction. Wound was carefully irrigated with antibiotic solution. Hemostasis confirmed. The device was then placed back into the pseudocapsule pocket. On the table interrogation was then performed with appropriate parameters confirmed. Once completed, the incision was then closed with 2 layers of 3-0 Vicryl suture. Skin was reapproximated in a subcuticular manner with 4-0 Monocryl suture. Dermal glue was then applied followed by sterile dressing and pressure dressing. Procedure was well-tolerated and Mr. Estes was awakened from IV conscious sedation and then transferred to Outpatient Surgery department in stable condition. Model: Sentiva #1000 Serial #: [id number] Output: 1.75 mA Frequency 30 Hz Pulse width 250 ?s On time 30 seconds Off time 0.8 minutes Duty cycle 44% Lead impedance 1569
--- NOTE | 2024-01-02 09:00 | ANE.PACU2 ---
Inpatient post-anesthesia follow up: Airway intact: Yes Vital signs: Temperature 97.1 F Pulse Rate 67 Respiratory Rate 18 Blood Pressure 140/85 Pulse Oximetry 95 Oxygen Delivery Me thod Room Air Oxygen Flow Rate Fraction of Inspir ed Oxygen Hydration adequate: Yes Nausea and vomiting: No Pain level: 1 Mental status: Baseline
== END 2024-01-02 08:58 | disposition home or self-care (01) ==
PROVIDERS: PCP Family Medicine; Visit Provider Thoracic Surgery (Cardiothoracic Vascular Surgery)
PROC: (CPT 61885; principal; 2024-01-02 07:00)
DX: Z45.42 Encounter for adjustment and management of neurostimulator (principal); E78.5 Hyperlipidemia, unspecified; K21.9 Gastro-esophageal reflux disease without esophagitis; G40.909 Epilepsy, unspecified, not intractable, without status epilepticus; I12.9 Hypertensive chronic kidney disease with stage 1 through stage 4 chronic kidney disease, or unspecified chronic kidney disease; N18.9 Chronic kidney disease, unspecified
CPT/HCPCS: 61885; 36415; 80048; 81001; 85025; 87086; C1767; J0690; J2704; J3010; J7030

== ENCOUNTER → 2024-01-23 11:14 | Outpatient (BNVA) | payer MEDICAID, SELFPAY | PROVIDERS: PCP Family Medicine; Visit Provider Podiatrist Foot & Ankle Surgery | DX: B35.1 Tinea unguium (principal); I73.9 Peripheral vascular disease, unspecified | CPT/HCPCS: 11721 ==

== ENCOUNTER 2024-03-05 12:05 | Emergency (ER) | payer MEDICAID, SELFPAY ==
--- NOTE | 2024-03-05 12:09 | ECG_ITS ---
[facility] Test Date: 2024-03-05 Pat Name: Martin Estes Department: Room: Gender: Male Hr Consultant: : 1960 Requested By: Mingo Farmer Order Number: [id number] Albaro MD: Emeterio Georges M.D. Measurements Intervals [place] Rate: 55 P: 30 ME: 172 QRS: 9 QRSD: 85 T: 49 QT: 420 QTc: 404 Interpretive Statements SINUS BRADYCARDIA Compared to ECG 09/21/2023 08:30:06 Sinus rhythm no longer present T-wave abnormality no longer present Electronically Signed On 03-05-2024 14:31:17 CDT by Emeterio Georges M.D. [email or web address] [email or web address] ([email or web address] centerHealthboxsalem [id number]
[2024-03-05 12:14] VITALS: BP 130/78; PULSE 57; RESP 18; TEMP 36.8; O2SAT 97; BMI 27.3
--- NOTE | 2024-03-05 12:25 | ED_ITS ---
HPI - General Adult 2 General: Chief complaint: Urogenital-Male Stated complaint: generalized weakness Time Seen by Provider: 03/05/24 12:08 Source: patient Mode of arrival: EMS History of Present Illness: 63-year-old male presents emergency room from regular follow-up with complaint of generalized weakness and frequency of urination. Denies fever sweats. Denies abdominal pain or chest pain. No shortness of breath. Patient does have some intellectual disability. Onset (ago): minute(s) Severity: mild Associated symptoms: Reports confusion; Deny chest pain, cough, diaphoresis, decreased appetite, dyspnea, fevers/chills, headache(s), malaise, nausea, rash, palpitations, seizures, short of breath, syncope, vomiting or weakness Review of Systems 2 Const: Denies: fever(s), chills, malaise or diaphoresis Card: Denies: chest pain, palpitations or syncope Resp: Denies: dyspnea GI: Denies: nausea or vomiting : Denies: dysuria, urinary frequency or urinary urgency Musc: Denies: neck pain or back pain Skin/Breast: Denies: rash Neuro: Reports: confusion; Denies: headache(s) PFSH ED 2 PFSH: Medical History Elevated PSA Urolithiasis Urinary retention Transient urinary retention 2020. Good emptying proven post catheter removal. Calcium renal calculus Partial epilepsy secondarily generalized GERD (gastroesophageal reflux disease) Depression Epilepsy Bipolar 1 disorder Hypernatremia Chronic kidney disease Hematochezia Anxiety Dyslipidemia Male circumcision Surgical History S/P ureteral stent placement Status post VNS (vagus nerve stimulator) placement 02/07/2020, 12/31/2014; Dr. Fadi Faria; Replacement of subcutaneous programmable pulse generator, with connection to vagal nerve stimulator electrode array. 05/26/2006 Dr. Fadi Faria. Implantation of vagal nerve stimulating electrode. Implantation of subcutaneous pulse generator for connection to cranial nerve stimulating electrode array. Family History Brother Cancer Other CAD (coronary artery disease) Family history unknown Social History (Reviewed 03/05/24 @ 12:27 by MORENA Perez Smoking and tobacco/nicotine status: never used tobacco/nicotine Alcohol intake: never Substance/Drug Use: never Household members: friend(s) Marital status: Single Current occupational status: unemployed and disabled Physical Exam 2 Const: GENERAL APPEARANCE: cooperative and comfortable O RIENTATION/CONSCIOUSNESS: Yes awake HENMT: COMMON NORMALS: normocephalic, atraumatic and hearing grossly normal bilaterally HEAD & SCALP: normocephalic and atraumatic Resp: COMMON NORMALS: normal respiratory effort, No retractions, No use of accessory muscles and clear to auscultation bilaterally AUSCULTATION: clear to auscultation bilaterally Cardio: COMMON NORMALS: regular rate, regular rhythm and No murmurs present (Cardio) RATE: regular rate RHYTHM: regular rhythm GI: COMMON NORMALS: Soft to palpation and No hepatosplenomegaly present A USCULTATION: Yes normoactive bowel sounds PALPATION: Yes Soft to palpation, No Tenderness to palpation present (GI), No Guarding due to palpation present (GI) and Yes No hepatosplenomegaly present Extremity: COMMON NORMALS: normal to inspection, capillary refill normal, no clubbing, cyanosis or edema, no calf tenderness and no pedal edema Skin: COMMON NORMALS: no rashes or lesions noted GENERAL SKIN EXAM: no rashes or lesions noted Course 2 Vital Signs: Vital signs: Vital Signs Temperature 98.2 F 03/05/24 12:14 Pulse Rate 61 03/05/24 14:55 Respiratory Rate 18 03/05/24 12:14 Blood Pressure 140/97 03/05/24 14:55 Pulse Oximetry 97 03/05/24 14:55 Oxygen Delivery Me thod Room Air 03/05/24 14:55 MDM - General Adult Medical Decision Making Left renal stone nonobstructive which I think is the cause of his hematuria. No sign of infection at this time also has cholelithiasis with a very slight elevation of transaminases normal T. bili. Will set up outpatient gallbladder ultrasound Medical Records I reviewed the patient's medical records. Lab Data I reviewed the patient's lab results. 03/05/24 14:03 03/05/24 14:03 Radiology Impressions Abdomen/Pelvis CT 03/05/24 14:05 IMPRESSION: 1. Study is compromised by breathing motion artifact. 2. Cholelithiasis is suspected. The gallbladder cannot be otherwise evaluated due to the extensive breathing motion artifact. Gallbladder would be better described by ultrasound. 3. Severe chronic atrophy RIGHT kidney is new since 2019. 4. Large central LEFT renal calcification measures 2.1 x 1.4 cm. There is additional stranding in the central LEFT renal pelvis but no high-grade obstruction. Stone is probably causing a mild inflammation and possibly intermittent obstruction. Additional calcifications nonobstructing in the renal pelvis. Stone burden has increased since 2019 in the LEFT kidney. 5. No adenopathy or free fluid. 6. There are additional bladder calcifications which have likely passed from the ureter. Laboratory Results WBC 7.41 10^3/uL (3.29-11.43) 03/05/24 14:03 RBC 4.17 10^6/uL (3.85-5.65) 03/05/24 14:03 Hgb 12.50 g/dL (11.27-16.99) 03/05/24 14:03 Hct 39.1 % (37-53) 03/05/24 14:03 MCV 93.8 fl (82-101) 03/05/24 14:03 MCH 30.0 pg (27-33) 03/05/24 14:03 MCHC 32.0 g/dL (30-55) 03/05/24 14:03 RDW 14.6 % (12.1-15.1) 03/05/24 14:03 Plt Count 131 10^3/cmm (157-399) L 03/05/24 14:03 MPV 10.7 fL (7.4-10.4) H 03/05/24 14:03 Neut % (Auto) 68.3 % 03/05/24 14:03 Lymph % (Auto) 18.2 % 03/05/24 14:03 [place] % (Auto) 8.8 % 03/05/24 14:03 Eos % (Auto) 4.0 % 03/05/24 14:03 Baso % (Auto) 0.3 % 03/05/24 14:03 Neut # (Auto) 5.06 10^3/uL (1.8-7.7) 03/05/24 14:03 Lymph # (Auto) 1.4 10^3/uL (0.8-4.8) 03/05/24 14:03 [place] # (Auto) 0.7 10^3/uL (0.2-0.9) 03/05/24 14:03 Eos # (Auto) 0.3 10^3/uL (0.0-0.8) 03/05/24 14:03 Baso # (Auto) 0.0 10^3/uL (0.0-0.1) 03/05/24 14:03 Nucleated RBC % (auto) 0 % 03/05/24 14:03 Nucleated RBCs # 0.0 /100WBC 03/05/24 14:03 Sodium 140 mmol/L (136-145) 03/05/24 14:03 Potassium 3.9 mmol/L (3.5-5.1) 03/05/24 14:03 Chloride 109 mmol/L (98-107) H 03/05/24 14:03 Carbon Dioxide 23 mmol/L (22-29) 03/05/24 14:03 Anion Gap 11.9 (5-19) 03/05/24 14:03 BUN 17 mg/dL (8-23) 03/05/24 14:03 Creatinine 0.9 mg/dL (0.7-1.2) 03/05/24 14:03 GFR Calculation 85.0 mL/min (90-130) L 03/05/24 14:03 Glucose 71 mg/dL (65-115) 03/05/24 14:03 Calculated Osmolality 290 mOsm/kg (285-295) 03/05/24 14:03 Calcium 7.8 mg/dL (8.5-10.5) L 03/05/24 14:03 Total Bilirubin 0.3 mg/dL (0.15-1.2) 03/05/24 14:03 AST 67 U/L (0-40) H 03/05/24 14:03 ALT 62 U/L (0-41) H 03/05/24 14:03 Alkaline Phosphatase 90 U/L (40-130) 03/05/24 14:03 Total Protein 5.3 g/dL (6.6-8.7) L 03/05/24 14:03 Albumin 2.9 g/dL (3.5-5.2) L 03/05/24 14:03 Globulin 2.4 g/dL (1.3-4.6) 03/05/24 14:03 Urine Color Yellow (Yellow) 03/05/24 13:34 Urine Appearance Slightly cloudy (CLEAR) 03/05/24 13:34 Urine pH 6.5 (5-7) 03/05/24 13:34 Ur Specific [place] 1.015 (1.005-1.030) 03/05/24 13:34 Urine Protein Neg (Negative) 03/05/24 13:34 Urine Glucose (UA) Norm (Normal) 03/05/24 13:34 Urine Ketones Negative (Negative) 03/05/24 13:34 Urine Blood 3+ (Negative) H 03/05/24 13:34 Urine Nitrate Negative (Negative) 03/05/24 13:34 Urine Bilirubin Neg (Negative) 03/05/24 13:34 Urine Urobilinogen Neg mg/dL (Negative) 03/05/24 13:34 Ur Leukocyte Esterase Trace (Negative) H 03/05/24 13:34 Urine RBC 80-100 /hpf (0-2) H 03/05/24 13:34 Urine WBC 0-4 /hpf (0-5) H 03/05/24 13:34 Ur Squamous Epith Cells 0-4 /hpf (0-5) H 03/05/24 13:34 Amorphous Sediment Not Reportable 03/05/24 13:34 Urine Bacteria 1+ /hpf (NONE) H 03/05/24 13:34 Urine Mucus 1+ /hpf 03/05/24 13:34 All radiology interpretation(s) finalized by discharge Discharge Plan Discharge Patient Disposition: Home Clinical Impression: Calculus of left kidney, Cholelithiasis without cholecystitis Condition: Stable Prescriptions: No Action nitroglycerin 0.4 mg tablet, sublingual 0.4 mg SUBLINGUAL Q5M PRN (Reason: Chest Pain) acetaminophen 500 mg tablet 1,000 mg PO QID PRN (Reason: PAIN) oxybutynin chloride 15 mg tablet extended release 24hr 15 mg PO DAILY methenamine hippurate 1 gram tablet 1 g PO BID lorazepam 2 mg tablet 2 mg PO DAILY Qty: 30 2RF pregabalin [Lyrica] 300 mg capsule 300 mg PO BID@0800,2000 Qty: 60 5RF zonisamide 100 mg capsule See Rx Instructions .ROUTE .COMPLEX Qty: 120 1RF Dose Instruction: TAKE 4 CAPS BY MOUTH (400MG) AT BEDTIME FOR LOCAL REL SYMTC EPL W/COMPLEX PRT SEIZ, NOT NTRCT W/O STATEPI MUST WEAR GLOVES WHEN HANDLING* Rx Instructions: TAKE 4 CAPS BY MOUTH (400MG) AT BEDTIME FOR LOCAL REL SYMTC EPL W/COMPLEX PRT SEIZ, NOT NTRCT W/O STATEPI MUST WEAR GLOVES WHEN HANDLING* sennosides-docusate sodium [Senexon-S] 8.6-50 mg tablet See Rx Instructions .ROUTE .COMPLEX Qty: 56 12RF Dose Instruction: TAKE 2 TABS BY MOUTH DAILY Rx Instructions: TAKE 2 TABS BY MOUTH DAILY simvastatin 20 mg tablet See Rx Instructions .ROUTE .COMPLEX Qty: 28 12RF Dose Instruction: TAKE 1 TABLET BY MOUTH AT BEDTIME Rx Instructions: TAKE 1 TABLET BY MOUTH AT BEDTIME albuterol sulfate [Ventolin HFA] 90 mcg/actuation HFA aerosol inhaler See Rx Instructions .ROUTE .COMPLEX Qty: 18 12RF Dose Instruction: INHALE 2 PUFFS ORALLY EVERY 6 HOURS NEEDED FOR SHORTNESS OF BREATH OR WHEEZING EXPIRES 12 MONTHS AFTER OPENING (DATE OPENED: _ / _ / _ ) Rx Instructions: INHALE 2 PUFFS ORALLY EVERY 6 HOURS NEEDED FOR SHORTNESS OF BREATH OR WHEEZING EXPIRES 12 MONTHS AFTER OPENING (DATE OPENED: _ / _ / _ ) famotidine 20 mg tablet See Rx Instructions .ROUTE .COMPLEX Qty: 30 12RF Dose Instruction: TAKE 1 TABLET BY MOUTH DAILY NEEDED FOR INDIGESTION Rx Instructions: TAKE 1 TABLET BY MOUTH DAILY NEEDED FOR INDIGESTION fluoxetine 40 mg capsule See Rx Instructions .ROUTE .COMPLEX Qty: 60 12RF Dose Instruction: TAKE 1 CAP BY MOUTH TWICE DAILY Rx Instructions: TAKE 1 CAP BY MOUTH TWICE DAILY risperidone 1 mg tablet See Rx Instructions .ROUTE .COMPLEX Qty: 30 12RF Dose Instruction: TAKE 1 TABLET BY MOUTH AT BEDTIME Rx Instructions: TAKE 1 TABLET BY MOUTH AT BEDTIME lacosamide 100 mg tablet 100 mg PO BID Qty: 60 1RF polyethylene glycol 3350 [Miralax] 17 gram/dose powder 17 g PO DAILY PRN (Reason: Constipation) hydroxyzine pamoate 25 mg capsule 25 mg PO Q6H PRN (Reason: Itching/ANXIETY) promethazine-DM 6.25-15 mg/5 mL Syrup 5 ml PO Q6H PRN (Reason: Cough) Discharge Orders: Discharge ED (Routine); Ordered 03/05/24 Ordered By: Mingo Hansen Referrals: Stefanie Somers MD [Primary Care Provider] - Discharge Diet: Usual diet Patient Instructions: Opioid Safety, Pain Management Activity Restrictions/Additional Instructions: Thank you for choosing [facility] for your healthcare needs today. It is very important that you follow up as instructed or that you return to the Emergency Department should you have concerns or if your condition changes or worsens in any way. You were seen today for complaints of bladder issues. You have a left renal stone that is causing some mild hematuria but there is no sign of obstruction. Recommend you follow-up with your urologist. You are also noted to have some gallbladder stones. Will set up an outpatient gallbladder ultrasound. Coding Level of Care Code ED Evaporative Cooler Installer for Garrett Liang
[2024-03-05 13:00] VITALS: BP 127/57; PULSE 59; O2SAT 97
[2024-03-05 13:56] LABS: Urine Appearance Slightly Cloudy (CLEAR); Urine Color Yellow (Yellow)
[2024-03-05 13:57] LABS: Add Urine Microscopic? YES; Bilirubin Urine Neg (Negative); Blood Urine 3+ (Negative); Glucose Urine UA Norm (Normal); Ketones Urine Negative (Negative); Leukocyte Esterase Urine Trace (Negative); Nitrate Urine Negative (Negative); Protein Urine Neg (Negative); Specific Gravity, Urine 1.015 (1.005-1.030); Urobilinogen Urine Neg (Negative); pH Urine 6.5 (5-7)
[2024-03-05 13:59] LABS: RBC Urine 80-100 /hpf (0-2); Squamous Epithelial Cell Urine 0-4 /hpf (0-5); WBC Urine 0-4 /hpf (0-5)
[2024-03-05 14:00] LABS: Add Urine Culture? Yes; Bacteria Urine 1+ /hpf; Mucus Urine 1+ /hpf
--- NOTE | 2024-03-05 14:05 | CT_ITS ---
WS: [id number] CT ABDOMEN AND PELVIS NONCONTRAST HISTORY: Hematuria TECHNIQUE: Imaging performed through the abdomen and pelvis. Coronal and sagittal reformats are submi tted. All CT scans at [facility] use at least one of these dose optimization techniques: auto mated exposure control; mA and/or kV adjustment per patient size (includes targeted exams where dose is matched to clinical indication); or iterative reconstruction. DLP: 1206.30 mGy.cm COMPARISON: 02/02/2019 Lower thorax: Mild dependent changes at the lung bases. Motion artifact due to breathing. No pneumoni a. No pleural effusion. Heart is slightly enlarged. Liver: Breathing motion artifact. Possible low-attenuation nodule measuring 10 mm towards the superio r RIGHT lobe. This may also be of breathing motion artifact. Gallbladder: Poorly visualized due to motion. Cholelithiasis in the dependent gallbladder towards the neck. Pancreas: Diffuse fatty replacement. Spleen: Normal. Adrenal glands: Mild nodularity of each adrenal gland. Similar to prior studies. Suspect very tiny ad enomas. Right kidney: Severe atrophy of the RIGHT kidney measuring 6.5 cm in length. Acquired cysts. Nonobstr ucting calcification lower pole. Atrophy is new since 02/02/2019. There was severe hydronephrosis on th e prior study. Left kidney: Normal size kidney. Numerous calcifications in the renal pelvis. No significant perineph rock stranding. There is a very large calcification centered in the renal pelvis measuring 2.1 x 1.4 c m. There is mild uroepithelial thickening. LEFT ureter is normal size. Aorta: Normal abdominal aorta, no aneurysm or atherosclerosis. No free fluid, intraperitoneal air or significant lymphadenopathy. GI tract: Normal noncontrast imaging of the stomach, small bowel and colon. No obstruction or wall th ickening. Normal appendix. Abdominal wall: Negative. No hernia. Subcutaneous nodule in the posterior LEFT mid thorax. Most likel y a sebaceous cyst. Pelvis: No free fluid in the pelvis. Urinary bladder is moderately well distended with diffuse wall t hickening. There are several small calcifications in the base of the urinary bladder which may have b een recently extruded from the kidneys. There are also prostate calcifications. Osseous structures: Unremarkable. CT/CT kidney stone [id number] IMPRESSION: 1. Study is compromised by breathing motion artifact. 2. Cholelithiasis is suspected. The gallbladder cannot be otherwise evaluated due to the extensive breathing motion artifact. Gallbladder would be better noris cribed by ultrasound. 3. Severe chronic atrophy RIGHT kidney is new since 2019. 4. Large central LEFT renal calcification measures 2.1 x 1.4 cm. There is martinez tional stranding in the central LEFT renal pelvis but no high-grade obstruction . Stone is probably causing a mild inflammation and possibly intermittent obstr uction. Additional calcifications nonobstructing in the renal pelvis. Stone bur den has increased since 2019 in the LEFT kidney. 5. No adenopathy or free fluid. 6. There are additional bladder calcifications which have likely passed from t he ureter.
[2024-03-05 14:20] LABS: Basophils % 0.3 %; Eosinophils # 0.3 10^3/uL (0.0-0.8); Hematocrit 39.1 % (37-53); Lymphocytes # 1.4 10^3/uL (0.8-4.8); Lymphocytes % 18.2 %; Mean Corpuscular Volume 93.8 fl (82-101); Mean Platelet Volume 10.7 fL (7.4-10.4); Monocytes # 0.7 10^3/uL (0.2-0.9); Monocytes % 8.8 %; Neutrophils # 5.06 10^3/uL (1.8-7.7); Neutrophils % 68.3 %; Nucleated Red Blood Cells % 0 %; Platelet Count 131 10^3/cmm (157-399); Red Blood Count 4.17 10^6/uL (3.85-5.65); Red Cell Distribution Width 14.6 % (12.1-15.1); White Blood Count 7.41 10^3/uL (3.29-11.43)
[2024-03-05 14:37] LABS: Alanine Aminotransferase 62 U/L (0-41); Albumin Level 2.9 g/dL (3.5-5.2); Alkaline Phosphatase 90 U/L (40-130); Aspartate Amino Transferase 67 U/L (0-40); Blood Urea Nitrogen 17 mg/dL (8-23); Calcium 7.8 mg/dL (8.5-10.5); Carbon Dioxide 23 mmol/L (22-29); Chloride 109 mmol/L (98-107); Creatinine Clr Calc Pharmacy 97.5924; Globulin 2.4 g/dL (1.3-4.6); Glucose 71 mg/dL (65-115); Osmolality Calculated 290 mOsm/kg (285-295); Sodium 140 mmol/L (136-145); Total Bilirubin 0.3 mg/dL (0.15-1.2); Total Protein 5.3 g/dL (6.6-8.7)
[2024-03-05 14:38] LABS: Anion Gap 11.9 (5-19); Potassium 3.9 mmol/L (3.5-5.1)
[2024-03-05 14:55] VITALS: BP 140/97; PULSE 61; O2SAT 97
[2024-03-05 15:20] VITALS: BP 141/91
== END 2024-03-05 15:22 | disposition home or self-care (01) ==
PROVIDERS: Emergency Provider Family Medicine; PCP Family Medicine
DX: K80.20 Calculus of gallbladder without cholecystitis without obstruction (principal); N20.0 Calculus of kidney; N18.9 Chronic kidney disease, unspecified; Z87.442 Personal history of urinary calculi; E78.5 Hyperlipidemia, unspecified
CPT/HCPCS: 74176; 80053; 81001; 85025; 87077; 87086; 87186; 93005; 99284

== ENCOUNTER → 2024-03-22 13:03 | Outpatient (BNVA) | payer MEDICAID, SELFPAY | PROVIDERS: PCP Family Medicine; Visit Provider Family Medicine | DX: Z00.00 Encounter for general adult medical examination without abnormal findings (principal); E78.5 Hyperlipidemia, unspecified; F41.9 Anxiety disorder, unspecified; Z12.5 Encounter for screening for malignant neoplasm of prostate; N30.00 Acute cystitis without hematuria | CPT/HCPCS: 80053; 80061; 81003; 84443; 85025; 87086; G0103 ==

== ENCOUNTER 2024-04-03 09:50 | Outpatient (CLI) | payer MEDICAID, SELFPAY ==
--- NOTE | 2024-04-03 10:15 | USR_ITS ---
PROCEDURE INFORMATION: Exam: US Abdomen; Limited Exam date and time: 04/03/2024 10:03 AM Age: 63 years old Clinical indication: Abdominal pain; Localized; Right upper quadrant (ruq); Additional info: Ruq pain TECHNIQUE: Imaging protocol: Real time ultrasound of the abdomen with image documentation. Limited exam focused on the region of clinical interest. COMPARISON: US renal BI* [id number] 02/01/2019 7:18 PM FINDINGS: Liver: Liver is diffusely increased in echogenicity, most commonly seen in hepatic steatosis, though other forms of parenchymal liver disease could have a similar appearance. This limits evaluation for subtle isoechoic masses but no masses are seen. Small cysts noted in the right hepatic lobe, the largest measuring 1.5 cm. Patent main portal vein with normal direction of flow. Gallbladder: The gallbladder is distended. No gallstones. No pericholecystic fluid. No gallbladder wall thickening. Pancreas: Obscured by overlying bowel gas. Right kidney: Diffuse increased parenchymal echogenicity. Lobulated contour and areas of cortical thinning noted. Multiple cysts seen, the largest measuring 1.4 cm. US/US gall bladder [id number] IMPRESSION: 1. Hyperechoic liver, which can be seen with fatty infiltration or hepatocellular disease. 2. Hyperechoic right kidney with lobulated contour in areas of cortical thinning, suggestive of chronic scarring and medical renal disease.
== END 2024-04-03 09:51 | disposition home or self-care (01) ==
LOC: RAD 09:50
PROVIDERS: PCP Family Medicine; Visit Provider Family Medicine
DX: R10.11 Right upper quadrant pain (principal)
CPT/HCPCS: 76705

== ENCOUNTER 2024-04-11 15:14 | Outpatient (CLI) | payer MEDICAID, SELFPAY | END 2024-04-11 15:15 | disposition home or self-care (01) | LOC: LAB 15:24 | PROVIDERS: PCP Family Medicine; Visit Provider Urology | DX: N39.0 Urinary tract infection, site not specified (principal) | CPT/HCPCS: 87086 ==

== ENCOUNTER → 2024-04-19 15:43 | Outpatient (BNVA) | payer MEDICAID, SELFPAY | PROVIDERS: PCP Family Medicine; Visit Provider Podiatrist Foot & Ankle Surgery | DX: B35.1 Tinea unguium (principal); I73.9 Peripheral vascular disease, unspecified | CPT/HCPCS: 11721 ==

== ENCOUNTER → 2024-07-10 14:04 | Outpatient (BNVA) | payer MEDICAID, SELFPAY | PROVIDERS: PCP Family Medicine; Visit Provider Podiatrist Foot & Ankle Surgery | DX: B35.1 Tinea unguium (principal); I73.9 Peripheral vascular disease, unspecified | CPT/HCPCS: 11721 ==

== ENCOUNTER → 2024-09-03 13:38 | Outpatient (BNVA) | payer MEDICAID, SELFPAY | PROVIDERS: PCP Family Medicine; Visit Provider Family Medicine | DX: N30.00 Acute cystitis without hematuria (principal); N39.0 Urinary tract infection, site not specified | CPT/HCPCS: 81000; 87077; 87086; 87184 ==

== ENCOUNTER → 2024-09-11 14:40 | Outpatient (BNVA) | payer MEDICAID, SELFPAY | PROVIDERS: PCP Family Medicine; Visit Provider Podiatrist Foot & Ankle Surgery | DX: B35.1 Tinea unguium (principal); I73.9 Peripheral vascular disease, unspecified | CPT/HCPCS: 11721 ==

== ENCOUNTER → 2024-09-17 10:11 | Outpatient (BNVA) | payer MEDICAID, SELFPAY | PROVIDERS: PCP Family Medicine; Visit Provider Internal Medicine Cardiovascular Disease | DX: R06.02 Shortness of breath (principal); E78.5 Hyperlipidemia, unspecified; R63.5 Abnormal weight gain; F31.77 Bipolar disorder, in partial remission, most recent episode mixed; Z68.32 Body mass index [BMI] 32.0-32.9, adult | CPT/HCPCS: 36415; 80048; 83880; 99214 ==

== ENCOUNTER → 2024-10-09 16:50 | Outpatient (BNVA) | payer MEDICAID, SELFPAY | PROVIDERS: PCP Family Medicine; Visit Provider Family Medicine | DX: N39.0 Urinary tract infection, site not specified (principal) | CPT/HCPCS: 81000 ==

== ENCOUNTER → 2024-10-16 16:28 | Outpatient (BNVA) | payer MEDICAID, SELFPAY | PROVIDERS: PCP Family Medicine; Visit Provider Family Medicine | DX: N39.0 Urinary tract infection, site not specified (principal) | CPT/HCPCS: 81000; 87086 ==

== ENCOUNTER → 2024-11-06 13:08 | Outpatient (BNVA) | payer MEDICAID, SELFPAY | PROVIDERS: PCP Family Medicine; Visit Provider Family Medicine | DX: F41.9 Anxiety disorder, unspecified (principal); E78.5 Hyperlipidemia, unspecified; E03.9 Hypothyroidism, unspecified; I73.9 Peripheral vascular disease, unspecified; N18.30 Chronic kidney disease, stage 3 unspecified | CPT/HCPCS: 80053; 80061; 82607; 84443; 85025 ==

== ENCOUNTER → 2024-11-13 15:08 | Outpatient (BNVA) | payer MEDICAID, SELFPAY | PROVIDERS: PCP Family Medicine; Visit Provider Podiatrist Foot & Ankle Surgery | DX: I73.9 Peripheral vascular disease, unspecified (principal); B35.1 Tinea unguium | CPT/HCPCS: 11721 ==

== ENCOUNTER → 2024-12-24 14:10 | Outpatient (BNVA) | payer MEDICAID, SELFPAY | PROVIDERS: PCP Family Medicine; Visit Provider Family Medicine | DX: R30.0 Dysuria (principal) | CPT/HCPCS: 81000 ==

== ENCOUNTER → 2025-01-16 10:59 | Outpatient (BNVA) | payer MEDICAID, SELFPAY | PROVIDERS: PCP Family Medicine; Visit Provider Podiatrist Foot & Ankle Surgery | DX: I73.9 Peripheral vascular disease, unspecified (principal); B35.1 Tinea unguium | CPT/HCPCS: 11721 ==

== ENCOUNTER → 2025-01-31 13:52 | Outpatient (BNVA) | payer MEDICAID, SELFPAY | PROVIDERS: PCP Family Medicine; Visit Provider Family Medicine | DX: Z00.00 Encounter for general adult medical examination without abnormal findings (principal); F41.9 Anxiety disorder, unspecified; I73.9 Peripheral vascular disease, unspecified; E78.5 Hyperlipidemia, unspecified; G40.109 Localization-related (focal) (partial) symptomatic epilepsy and epileptic syndromes with simple partial seizures, not intractable, without status epilepticus; R26.0 Ataxic gait; M19.90 Unspecified osteoarthritis, unspecified site; E03.9 Hypothyroidism, unspecified | CPT/HCPCS: 80053; 80061; 82306; 82607; 84443; 84550; 85025 ==

== ENCOUNTER → 2025-02-28 10:08 | Outpatient (BNVA) | payer MEDICAID, SELFPAY | PROVIDERS: PCP Family Medicine; Visit Provider Family Medicine | DX: N39.0 Urinary tract infection, site not specified (principal) | CPT/HCPCS: 81003 ==

== ENCOUNTER → 2025-03-20 10:57 | Outpatient (BNVA) | payer MEDICAID, SELFPAY | PROVIDERS: PCP Family Medicine; Visit Provider Podiatrist Foot & Ankle Surgery | DX: I73.9 Peripheral vascular disease, unspecified (principal); B35.1 Tinea unguium | CPT/HCPCS: 11721 ==

== ENCOUNTER → 2025-04-10 09:35 | Outpatient (BNVA) | payer MEDICAID, SELFPAY | PROVIDERS: PCP Family Medicine; Visit Provider Family Medicine | DX: N30.00 Acute cystitis without hematuria (principal); R51.9 Headache, unspecified; R41.0 Disorientation, unspecified | CPT/HCPCS: 80053; 81000; 85025 ==

== ENCOUNTER → 2025-05-30 11:20 | Outpatient (BNVA) | payer MEDICAID, SELFPAY | PROVIDERS: PCP Family Medicine; Visit Provider Podiatrist Foot & Ankle Surgery | DX: I73.9 Peripheral vascular disease, unspecified (principal); B35.1 Tinea unguium | CPT/HCPCS: 11721 ==

== ENCOUNTER → 2025-06-10 14:48 | Outpatient (BNVA) | payer MEDICAID, SELFPAY | PROVIDERS: PCP Family Medicine; Visit Provider Family Medicine | DX: N30.00 Acute cystitis without hematuria (principal) | CPT/HCPCS: 81000 ==

== ENCOUNTER → 2025-07-19 09:23 | Outpatient (BNVA) | payer MEDICAID, SELFPAY | PROVIDERS: PCP Family Medicine; Visit Provider Family Medicine | DX: N39.0 Urinary tract infection, site not specified (principal) | CPT/HCPCS: 81003 ==

== ENCOUNTER → 2025-08-14 10:40 | Outpatient (BNVA) | payer MEDICAID, SELFPAY | PROVIDERS: PCP Family Medicine; Visit Provider Podiatrist Foot & Ankle Surgery | DX: I73.9 Peripheral vascular disease, unspecified (principal); B35.1 Tinea unguium | CPT/HCPCS: 11721 ==

== ENCOUNTER → 2025-09-17 10:37 | Outpatient (BNVA) | payer MEDICAID, SELFPAY | PROVIDERS: PCP Family Medicine; Visit Provider Internal Medicine Cardiovascular Disease | DX: R06.02 Shortness of breath (principal); E78.5 Hyperlipidemia, unspecified; R63.5 Abnormal weight gain; Z68.29 Body mass index [BMI] 29.0-29.9, adult; F31.9 Bipolar disorder, unspecified | CPT/HCPCS: 36415; 80048; 83880; 99214 ==